=== PATIENT | female | born 1970 | race Caucasian/White ===

== ENCOUNTER 2018-02-08 01:52 | Inpatient (IN) | payer MEDICARE, MEDICAID ==
[~2018-02-08] VITALS: Ht 172.7 cm; Wt 128.2 kg
[~2018-02-08 01:52] MED LIST: ASPIRIN325 MG PO; BACTRIM DS TABL1 TAB PO; CARAFATE1 G PO; HYDROCODON-ACE1 EAC7 PO; KLONOPIN1 MG PO; NORCO 10/325 TA1 TA1 PO; PROTONIX40 MG PO; SOMA350 MG PO
[2018-02-08] MEDS ORDERED: MORPHINE SULFAT15 M4 PO (01:56)
[2018-02-08] MEDS ORDERED: ZANAFLEX2 M1 PO (01:57)
[2018-02-08] MEDS ORDERED: SENNA LAXATIVE8.6 MG PO (01:57)
[2018-02-08] MEDS ORDERED: MELATONIN 3 MG1 TAB PO (01:57)
[2018-02-08] MEDS ORDERED: PHENERGAN25 M1 PO (01:57)
[2018-02-08] MEDS ORDERED: K-DUR20 MEQ PO (01:58)
[2018-02-08] MEDS ORDERED: OXYBUTYNIN CHLOR5 MG PO (01:58)
[2018-02-08] MEDS ORDERED: FUROSEMIDE40 MG PO (01:59)
[2018-02-08] MEDS ORDERED: AMBIEN5 MG PO (01:59)
[2018-02-08] MEDS ORDERED: KLONOPIN1 MG PO (01:59)
[2018-02-08] MEDS ORDERED: LEXAPRO20 MG PO (02:00)
[2018-02-08 03:16] LABS: HEMATOCRIT 40.5 % (36.0-48.0); HEMOGLOBIN 12.5 g/dL (12-16); MCH 26.3 pg (26.0-34.0); MCHC 30.9 g/dL (31.0-37.0); MCV 85.3 fL (80.0-100.0); MEAN PLATELET VOLUME 9.8 fL (7.4-10.4); PLATELET COUNT 526 10x3/uL (130-400); RBC 4.75 10x6/uL (4.00-5.40); WBC 24.9 10x3/uL (4.8-10.8)
[2018-02-08 03:21] LABS: CALC OSMOLALITY 281 mosm/kg (275-300); CALCIUM 9.2 mg/dL (8.5-10.1); CARBON DIOXIDE 31.6 mmol/L (21.0-32.0); CHLORIDE - SERUM 99 mmol/L (98-107); CREATININE - SERUM 0.6 mg/dL (0.6-1.3); GLUCOSE 114 mg/dL (74-106); POTASSIUM - SERUM 3.7 mmol/L (3.5-5.1); SODIUM 140 mmol/L (136-145); UREA NITROGEN 18 mg/dL (7-18); eGFR NON AFRICAN AMERICAN > 90 mL/min (90-120)
[2018-02-08 03:33] LABS: BASOPHILS 1 % (0-2); LYMPHOCYTES 10 % (15-50); MONOCYTES 4 % (2-11); NEUTROPHILS 84 % (40-80); PLATELET ESTIMATE INCREASED
--- NOTE | 2018-02-08 05:18 | NUR ---
BLOOD CULTURES X2 COLLECTED BY LAB
--- NOTE | 2018-02-08 05:42 | NUR ---
PT TRANSPORTED TO ROOM WITH NS @ 100ML/HR AND ZOSYN 4.5GM RUNNING
[2018-02-08 07:53] VITALS: BP 92/52; BMI 33.8
--- NOTE | 2018-02-08 08:00 | NUR ---
ASSESSMENT PER FLOW SHEET. PT IS WITHOUT DISTRESS.CALL TO [facility] WITH WOUNDCARE TO LOOK AT PT BUTTOCKS,AND HEELS,SEE NOTES.SHE IS WITHOUT NEEDS AT PRESENT. CALL LIGHT PLACED BY LEFT ARM. DOOR OPEN
[2018-02-08 08:45] VITALS: BP 121/64
--- NOTE | 2018-02-08 09:39 | NUR ---
Wound care consult: Pt admitted from [facility] this morning. She has a stage 3 pressure injury on sacrum measuring 0.7cm x 0.7cm x 1.2cm. There is noted blanchable redness and excoriation surrounding wound, gluteal cleft and buttocks. She has a f/c and is incontinent of bowels. She arrived wearing an adult brief. Left hip has a nonblanchable red area (2cm x 5cm) (stage 1 pressure injury). Left lateral ankle has blanchable redness. Right heel is scarred possibly from an old pressure ulcer. Recommendations: -Air overlay mattress and a turn every 2 hours schedule -Calmoseptine cream applied to excoriated areas -Daily dressing changes to sacral pressure injury using Maxorb AG -No adult briefs/diapers Wound care will continue monitoring. -Heels/ankles bridged
[2018-02-08 12:45] VITALS: BP 93/46
[2018-02-08 16:37] VITALS: BP 92/41
[2018-02-08 17:20] LABS: HEMATOCRIT 38.3 % (36.0-48.0); HEMOGLOBIN 11.9 g/dL (12-16); MCH 26.9 pg (26.0-34.0); MCHC 31.1 g/dL (31.0-37.0); MCV 86.5 fL (80.0-100.0); MEAN PLATELET VOLUME 9.8 fL (7.4-10.4); PLATELET COUNT 498 10x3/uL (130-400); RBC 4.43 10x6/uL (4.00-5.40); WBC 26.9 10x3/uL (4.8-10.8)
[2018-02-08 17:27] LABS: APTT 25.9 SECONDS (22.8-39.4); INR 1.13 (0.85-1.17)
[2018-02-08 17:48] LABS: LYMPHOCYTES 8 % (15-50); MONOCYTES 1 % (2-11); NEUTROPHILS 87 % (40-80); PLATELET ESTIMATE NORMAL
[2018-02-08 20:00] VITALS: BP 116/52
--- NOTE | 2018-02-08 20:00 | NUR ---
ASSESSMENT PER FLOWSHEET. IV PATENT LEFT CHEST OF NS AT 100CC'S/HR. TRACH IN PLACE WITH TRACH COLLAR AT 8L/M. DOWNS TO BEDSIDE DRAINAGE WITH SUSAN URINE. LEFT LEG FLACCID. RT LEG STIFF. MOVES LEFT ARM RT ARM CONTRACTED AND STIFF. DIME SIZE PRESSURE SORE TO SACRAL AREA. PLACED ON CONT. PULSE OX SHOWS 90-92%.
--- NOTE | 2018-02-08 21:00 | NUR ---
MEDS GIVEN PER MAR.
--- NOTE | 2018-02-08 23:00 | NUR ---
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 TRACH CLEANED BY RT TECH.
--- NOTE | 2018-02-09 02:00 | NUR ---
O2 SAT STAYS AT 89-91% NO DISTRESS NOTED.
--- NOTE | 2018-02-09 03:58 | NUR ---
EYES CLOSED RESPIRATIONS WITH EASE AND UNLABORED. NPO FOR BRONCH IN AM.
[2018-02-09 04:00] VITALS: BP 147/55
[2018-02-09 08:15] LABS: ALBUMIN 2.3 g/dL (3.4-5.0); ALKALINE PHOSPHATASE 108 U/L (46-116); ALT (SGPT) 22 U/L (10-68); BILIRUBIN - TOTAL 0.37 mg/dL (0.2-1.3); CALC OSMOLALITY 276 mosm/kg (275-300); CALCIUM 8.1 mg/dL (8.5-10.1); CARBON DIOXIDE 21.7 mmol/L (21.0-32.0); CHLORIDE - SERUM 104 mmol/L (98-107); CREATININE - SERUM 0.5 mg/dL (0.6-1.3); GLUCOSE 107 mg/dL (74-106); PROTEIN - SERUM 7.5 g/dL (6.4-8.2); SODIUM 139 mmol/L (136-145); UREA NITROGEN 11 mg/dL (7-18); eGFR NON AFRICAN AMERICAN > 90 mL/min (90-120)
[2018-02-09 08:16] LABS: POTASSIUM - SERUM 4.3 mmol/L (3.5-5.1)
[2018-02-09 08:45] VITALS: BP 93/55
[2018-02-09 08:46] LABS: HEMATOCRIT 38.1 % (36.0-48.0); HEMOGLOBIN 11.9 g/dL (12-16); MCH 26.9 pg (26.0-34.0); MCHC 31.2 g/dL (31.0-37.0); MCV 86.2 fL (80.0-100.0); MEAN PLATELET VOLUME 10.1 fL (7.4-10.4); PLATELET COUNT 330 10x3/uL (130-400); RBC 4.42 10x6/uL (4.00-5.40); RDW 18.5 % (11.5-14.5); WBC 21.3 10x3/uL (4.8-10.8)
[2018-02-09] MEDS ORDERED: ACETAMINOPHEN325 MG PO (09:27)
[2018-02-09] MEDS ORDERED: ASPERCREME 5 OZ5 OZ TOPICAL (09:29)
[2018-02-09] MEDS ORDERED: BENADRYL25 MG PO (09:31)
[2018-02-09] MEDS ORDERED: MORPHINE IMMEDI15 MG PO (09:33)
[2018-02-09] MEDS ORDERED: MIRALAX17 GM PO (09:35)
[2018-02-09] MEDS ORDERED: MELATONIN 3 MG1 TAB PO (09:35)
[2018-02-09] MEDS ORDERED: OXYBUTYNIN CHLOR5 MG PO (09:38)
[2018-02-09] MEDS ORDERED: K-DUR20 MEQ PO (09:41)
[2018-02-09] MEDS ORDERED: CORTEF10 MG PO (09:43)
[2018-02-09] MEDS ORDERED: LYRICA150 MG PO (09:44)
[2018-02-09 09:54] LABS: EOSINOPHILS 4 % (0-7); LYMPHOCYTES 10 % (15-50); MONOCYTES 6 % (2-11); NEUTROPHILS 79 % (40-80); PLATELET ESTIMATE NORMAL
--- NOTE | 2018-02-09 11:22 | MORECARE ---
CASE MANAGEMENT DISCHARGE SUMMARY PATIENT: CATERINA STEWART UNIT: [id number] ADM DATE: 02/08/18 AGE: 47 : 66 SEX: F ROOM/BED: D.2218 AUTHOR: LEONORA BUSH PHYSICIAN: REFERRING PHYSICIAN: PERCY DONOVAN MD DATE OF SERVICE: 02/09/18 Discharge Plan Patient Name: CATERINA STEWART Facility: [facility]:[place] : 1970 Planned Disposition: Hospice Medical Facility Anticipated Discharge Date: Discharge Date: Expected LOS: Initial Reviewer: [email or web address] Initial Review Date: 02/09/2018 Generated: 02/09/18 12:21 pm DCPIA - Discharge Planning Initial Assessment Updated by [email or web address]: Kathia Wright on 02/09/18 11:19 am * Is the patient Alert and Oriented? Yes * PCP VENUS * Pharm[facility] * Preadmission Environment Hospice * Facility Name [facility] * ADLs Total Dependent * Equipment Hospital Bed Oxygen Trach Care Supplies Wheelchair * List name and contact numbers for known caregivers / representatives who currently or will assist patient after discharge: IBAN QUIROZ, * Community resources currently utilized Other * Please name any agencies selected above. [facility] * Additional services required to return to the preadmission environment? No * Can the patient safely return to the preadmission environment? Yes * Has this patient been hospitalized within the prior 30 days at any hospital? No Patient Name: CATERINA STEWART Page [phone] at 1122 All edits/amendments must be made on the electronic document DICTATION DATE: 02/09/18 1121 LIABILITY ANALYST: KOBE 02/09/18 1121 RPT#: [id number] DC DATE: STATUS: ADM IN [facility] [address] [place] [address] END OF REPORT
--- NOTE | 2018-02-09 11:30 | MORECARE ---
CASE MANAGEMENT DISCHARGE SUMMARY PATIENT: CATERINA STEWART UNIT: [id number] ADM DATE: 02/08/18 AGE: 47 : 66 SEX: F ROOM/BED: D.6509 AUTHOR: LEONORA BUSH PHYSICIAN: REFERRING PHYSICIAN: PERCY DONOVAN MD DATE OF SERVICE: 02/09/18 Discharge Plan Patient Name: CATERINA STEWART Facility: [facility]:[place] : 1970 Planned Disposition: Hospice Medical Facility Anticipated Discharge Date: Discharge Date: Expected LOS: Initial Reviewer: [email or web address] Initial Review Date: 02/09/2018 Generated: 02/09/18 12:29 pm Comments DCP- Discharge Planning Updated by [email or web address]: Kathia Wright on 02/09/18 10:[address] Patient Name: CATERINA STEWART Admission Status: ER Accout number: [id number] Admission Date: 02-08-2018 : 1970 Admission Diagnosis: Attending: PERCY DONOVAN Current LOS: 1 Anticipated DC Date: Planned Disposition: Hospice Medical Facility Primary Insurance: [facility] MEDICARE HMO or PPO Discharge Planning Comments: CM MET WITH PATIENT ABOUT DC PLANNING/NEEDS. STATES SHE IS CURRENTLY AT THE [facility] ON HOSPICE. CM WILL CALL AND VERIFY INFORMATION. PATIENT IS HERE FOR PNEUMONIA. PATIENT STATES NO NEEDS AT TIME OF DC AND THAT HER PLAN IS TO GO BACK TO THE [facility] BY AMBULANCE. CM WILL FOLLOW AND ASSIST NEEDED WITH DC PLANNING/NEEDS. [employer] Bpm Consultant: Kathia Wright DCPIA - Discharge Planning Initial Assessment Updated by [email or web address]: Kathia Wright on 02/09/18 11:19 am * Is the patient Alert and Oriented? Yes * PCP VENUS * Pharmacy THROUGH THE [facility] * Preadmission Environment Hospice * Facility Name [facility] * ADLs Total Dependent * Equipment Hospital Bed Oxygen Trach Care Supplies Wheelchair * List name and contact numbers for known caregivers / representatives who currently or will assist patient after discharge: RICHIE, DAUGHTER, * Community resources currently utilized Other * Please name any agencies selected above. [facility] * Additional services required to return to the preadmission environment? No * Can the patient safely return to the preadmission environment? Yes * Has this patient been hospitalized within the prior 30 days at any hospital? No Last DP export: 02/09/18 10:21 am Patient Name: CATERINA STEWART Page [phone] at 1130 All edits/amendments must be made on the electronic document DICTATION DATE: 02/09/181128 HOUSE SERVANT: KOBE 02/09/18 112 RPT#: [id number] DC DATE: STATUS: ADM IN [facility] [address] [place] [address] END OF REPORT
[2018-02-09 12:45] VITALS: BP 92/44
--- NOTE | 2018-02-09 14:34 | MORECARE ---
CASE MANAGEMENT DISCHARGE SUMMARY PATIENT: CATERINA STEWART UNIT: [id number] ADM DATE: 02/08/18 AGE: 47 : 66 SEX: F ROOM/BED: D.2218 AUTHOR: RACHELLEDOC PHYSICIAN: REFERRING PHYSICIAN: PERCY DONOVAN MD DATE OF SERVICE: 02/09/18 Discharge Plan Patient Name: CATERINA STEWART Facility: [facility]:[place] : 1970 Planned Disposition: Hospice Medical Facility Anticipated Discharge Date: Discharge Date: Expected LOS: Initial Reviewer: [email or web address] Initial Review Date: 02/09/2018 Generated: 02/09/18 3:34 pm Comments DCP- Discharge Planning Updated by [email or web address]: Kathia Wright on 02/09/18 1:[address] Patient Name: CATERINA STEWART Admission Status: ER Accout number: [id number] Admission Date: 02-08-2018 : 1970 Admission Diagnosis: Attending: PERCY DONOVAN Current LOS: 1 Anticipated DC Date: Planned Disposition: Hospice Medical Facility Primary Insurance: [facility] MEDICARE HMO or PPO Discharge Planning Comments: CM MET WITH PATIENT ABOUT DC PLANNING/NEEDS. STATES SHE IS CURRENTLY AT THE [facility] ON HOSPICE. CM WILL CALL AND VERIFY INFORMATION. PATIENT IS HERE FOR PNEUMONIA. PATIENT STATES NO NEEDS AT TIME OF DC AND THAT HER PLAN IS TO GO BACK TO THE [facility] BY AMBULANCE. CM WILL FOLLOW AND ASSIST NEEDED WITH DC PLANNING/NEEDS. Porcelain Enamel Repairer: Kathia Wright Appended by Kathia Wright on 02/09/2018 14:26 VETERINARY SCIENCE TEACHER: SPOKE WITH GÉNESIS AT [facility] AT THE [facility] AND HE STATED THEY WILL PICK HER BACK UP WHEN DISCHARGED. CM OR NURSE TO LET THEM KNOW WHEN PATIENT IS DC'D. CALL GÉNESIS AT [phone] WHEN PATIENT IS BEING DC'D FROM HOSPITAL. DCPIA - Discharge Planning Initial Assessment Updated by [email or web address]: Kathia Wright on 02/09/18 11:19 am * Is the patient Alert and Oriented? Yes * PCP VENUS * Pharmacy THROUGH THE [facility] * Preadmission Environment Hospice * Facility Name [facility] * ADLs Total Dependent * Equipment Hospital Bed Oxygen Trach Care Supplies Wheelchair * List name and contact numbers for known caregivers / representatives who currently or will assist patient after discharge: RICHIE, DAUGHTER, * Community resources currently utilized Other * Please name any agencies selected above. [facility] * Additional services required to return to the preadmission environment? No * Can the patient safely return to the preadmission environment? Yes * Has this patient been hospitalized within the prior 30 days at any hospital? No Last DP export: 02/09/18 10:30 am Patient Name: CATERINA STEWART Page [phone] at 1434 All edits/amendments must be made on the electronic document DICTATION DATE: 02/09/181433 CARTON LINER: KOBE 02/09/181433 RPT#: [id number] DC DATE: STATUS: ADM IN [facility] [address] [place] [address] END OF REPORT
[2018-02-09 16:48] VITALS: BP 104/43
--- NOTE | 2018-02-09 18:55 | NUR ---
PATIENT IV REMOVED DUE TO REDNESS AND PAIN. PATIENT TRACH SUCTIONED AT THIS TIME PER PATIENT REQUEST. ATE SMALL AMOUNT OF DINNER. STATED NOT VERY HUNGRY. LAYING ON SIDE WITH DOWNS INTACT. CALL LIGHT WITHIN REACH.
[2018-02-09 20:28] VITALS: BP 96/47
[2018-02-10 00:46] VITALS: BP 108/69
--- NOTE | 2018-02-10 03:25 | NUR ---
PT LYING IN BED, NO SIGNS OF DISTRESS. DENIES NEEDS. WILL CONTINUE TO MONITOR
[2018-02-10 05:24] VITALS: BP 114/84
[2018-02-10 07:12] LABS: BASOPHILS 0.3 % (0-2); EOSINOPHILS 4.3 % (0-7); HEMATOCRIT 35.9 % (36.0-48.0); HEMOGLOBIN 10.7 g/dL (12-16); IMMATURE GRANULOCYTES 0.3 % (0-5); LYMPHOCYTES 15.9 % (15-50); MCH 26.4 pg (26.0-34.0); MCHC 29.8 g/dL (31.0-37.0); MEAN PLATELET VOLUME 9.5 fL (7.4-10.4); MONOCYTES 7.7 % (2-11); NEUTROPHILS 71.5 % (40-80); RBC 4.06 10x6/uL (4.00-5.40); RDW 18.5 % (11.5-14.5); WBC 17.5 10x3/uL (4.8-10.8)
[2018-02-10 07:16] LABS: MCV 88.4 fL (80.0-100.0)
[2018-02-10 07:17] LABS: PLATELET COUNT 478 10x3/uL (130-400)
[2018-02-10 07:26] LABS: CALCIUM 8.2 mg/dL (8.5-10.1); CHLORIDE - SERUM 104 mmol/L (98-107); CREATININE - SERUM 0.5 mg/dL (0.6-1.3); GLUCOSE 110 mg/dL (74-106); SODIUM 141 mmol/L (136-145); eGFR NON AFRICAN AMERICAN > 90 mL/min (90-120)
[2018-02-10 07:27] LABS: CALC OSMOLALITY 279 mosm/kg (275-300); CARBON DIOXIDE 27.3 mmol/L (21.0-32.0); POTASSIUM - SERUM 3.2 mmol/L (3.5-5.1); UREA NITROGEN 6 mg/dL (7-18)
[2018-02-10 09:53] VITALS: BP 117/48
--- NOTE | 2018-02-10 12:40 | NUR ---
ALERT AND ORINETED WI EXPRESSIVE APHASIA RELATED TO TRACH. UNIQUE COLLAR 60%. DIMINISHED BSX4 ANTERIOR. CAP REFILL <3 SEC. CONTINUIOUS PULSE OX 95%.dILAUDID 1MG GIVEN IV FOR PAIN LEFT ARM AND EFFECTIVE. FIRST PLACE MATTRESS APPLIED TO BED AND REPOSITIONED FOR COMFORT. DOWNS CATH PATENT WITH CLEAR SUSAN URINE NOTED.DROPPLET PRECAUTIONS FOR MRSA SPUTUM. HEMIPARALYSIS TO RT. SIDE WITH PLANTER FLEXION WITH EDEMA 2+ BILATERAL. ENCOURAGED TO USE CALL LIGHT FOR ASSIST.
[2018-02-10 16:00] VITALS: BP 110/58
--- NOTE | 2018-02-10 19:15 | NUR ---
RECEIVED CARE FROM DAY NURSE. ROUNDED WITH DAY NURSE AND READJUSTED PT IN BED. REPORTS NO OTHER NEEDS AT THIS TIME. CALL LIGHT AT SIDE. IV INFUSING TO LEFT FA PER ORDER.
[2018-02-10 20:42] VITALS: BP 121/57
[2018-02-10 21:06] LABS: AFB SPECIMEN PROCESSING Concentration (())
[2018-02-11] VITALS (15 sets, daily range): BP systolic 94–119; BP diastolic 45–58
--- NOTE | 2018-02-11 04:40 | NUR ---
RESTING QUITELY RESP UNLABORED IV INFUSING WITHOUT DIFFICULTY NO APPARENT DISTRESS
--- NOTE | 2018-02-11 07:30 | NUR ---
PT RESTING IN BED WITH EYES OPEN. O2 VIA HIGH FLOW NC TO TRACH. DOWNS DRAINING FREELY WITH COLLECTION BAG OFF OF THE FLOOR. PT DOES NOT HAVE USE OF RIGHT UPPER EXTREMITY AND BILATERAL LOWER EXTREMITIES. PT IS ON A SPECIALTY BED, BUT HAS REFUSED REPOSITIONING. BED IS IN LOWEST POSITION. CALL LIGHT AND BEDSIDE TABLE ARE WITHIN REACH. PT REPORTS PAIN. WILL ADDRESS. SEE EMAR. PT DENIES FURTHER NEEDS AT THIS TIME.
[2018-02-11 08:25] LABS: BASOPHILS 0.4 % (0-2); EOSINOPHILS 5.1 % (0-7); HEMATOCRIT 33.7 % (36.0-48.0); IMMATURE GRANULOCYTES 0.4 % (0-5); LYMPHOCYTES 14.3 % (15-50); MCH 26.3 pg (26.0-34.0); MCHC 29.7 g/dL (31.0-37.0); MCV 88.7 fL (80.0-100.0); MEAN PLATELET VOLUME 9.6 fL (7.4-10.4); MONOCYTES 8.5 % (2-11); NEUTROPHILS 71.3 % (40-80); PLATELET COUNT 527 10x3/uL (130-400); RDW 18.6 % (11.5-14.5)
[2018-02-11 08:43] LABS: CALC OSMOLALITY 278 mosm/kg (275-300); CALCIUM 8.1 mg/dL (8.5-10.1); CARBON DIOXIDE 26.9 mmol/L (21.0-32.0); CHLORIDE - SERUM 106 mmol/L (98-107); CREATININE - SERUM 0.5 mg/dL (0.6-1.3); GLUCOSE 117 mg/dL (74-106); POTASSIUM - SERUM 3.6 mmol/L (3.5-5.1); SODIUM 141 mmol/L (136-145); eGFR NON AFRICAN AMERICAN > 90 mL/min (90-120)
[2018-02-11 08:44] LABS: UREA NITROGEN 4 mg/dL (7-18)
--- NOTE | 2018-02-11 11:00 | NUR ---
DRESSING CHANGED TO COCCYX PER ORDER. PT DENIES FURTHER NEEDS. BED IS IN LOWEST POSITION. CALL LIGHT AND BEDSIDE TABLE ARE WITHIN REACH.
--- NOTE | 2018-02-11 11:23 | NUR ---
PT OFF FLOOR VIA BED FOR TRANSFER TO ICU.
--- NOTE | 2018-02-11 11:30 | NUR ---
REC'D PT. INTO ROOM 2303 AND HOOKED UP TO CM.
--- NOTE | 2018-02-11 11:30 | NUR ---
HOOKED TO VENT ON CPAP. PEEP=7, PS 20, 100% FIO2.
--- NOTE | 2018-02-11 12:44 | NUR ---
KITCHEN CALLED FOR LUNCH TRAY.
--- NOTE | 2018-02-11 13:15 | NUR ---
LUNCH TRAY SERVED,.
--- NOTE | 2018-02-11 14:58 | NUR ---
C/O ITCHING. CHANCE TURNER
[2018-02-11 16:07] LABS: IMMUNOGLOBULIN A 498 mg/dL (87-352); IMMUNOGLOBULIN G 1589 mg/dL (700-1600)
--- NOTE | 2018-02-11 17:37 | NUR ---
DINNER TRAY SERVED
--- NOTE | 2018-02-11 19:35 | NUR ---
PT RECEIVED WITH EYES OPEN. COMPLAINS OF PAIN WITH PRN DILAUDID GIVEN PER MAR. ASSESSMENT COMPLETED, SEE FLOW SHEET. NO OTHER CONCERNS NOTED. WILL CONTINUE TO OBSERVE.
--- NOTE | 2018-02-11 20:45 | NUR ---
PT RECEIVE MEDICATIONS PER MAR, TOLERATED WELL. NO CONCERNS NOTED. WILL CONTINUE TO OBSERVE.
--- NOTE | 2018-02-11 23:36 | NUR ---
PT COMPLAINED OF BACK PAIN AND RECEIVE PRN MORPHINE PER APR. IV VANCOMYCIN STARTED AND CAUSED PAIN TO IV SITE RATE AT 75ML/HR AT THIS TIME AND PT TOLERATING WELL. PT SCHEDULED FOR CVL PLACEMENT TOMORROW. WILL CONTINUE TO OBSERVE.
[2018-02-12] VITALS (24 sets, daily range): BP systolic 98–117; BP diastolic 19–67; Ht 172.7 cm; Wt 128.2 kg
--- NOTE | 2018-02-12 01:32 | NUR ---
PT WITH EYES CLOSED AND CHEST RISING. NO S/S OF DISTRESS. IV ABX AT 75ML/HR DUE TO DISCOMFORT IF AT FASTER RATE. WILL CONTINUE TO OBSERVE.
--- NOTE | 2018-02-12 03:45 | NUR ---
PT WITH EYES CLOSED AND CHEST RISING AT THIS TIME. REASSESSMENT COMPLETED, SEE FLOW SHEET. WILL CONTINUE TO OBSERVE.
[2018-02-12 04:18] LABS: BASOPHILS 0.6 % (0-2); EOSINOPHILS 5.4 % (0-7); HEMATOCRIT 33.2 % (36.0-48.0); IMMATURE GRANULOCYTES 0.3 % (0-5); MCH 26.3 pg (26.0-34.0); MCHC 30.1 g/dL (31.0-37.0); MCV 87.4 fL (80.0-100.0); MEAN PLATELET VOLUME 9.4 fL (7.4-10.4); MONOCYTES 9.7 % (2-11); PLATELET COUNT 487 10x3/uL (130-400); RDW 18.1 % (11.5-14.5); WBC 15.5 10x3/uL (4.8-10.8)
[2018-02-12 04:39] LABS: % SATURATION 6 % (15-55); IRON 11 ug/dl (35-150); TOTAL IRON BIND CAPACITY 180 ug/dl (260-445); UNSAT IRON BIND CAPACITY 169 ug/dl (150-375)
[2018-02-12 05:09] LABS: CALC OSMOLALITY 278 mosm/kg (275-300); CARBON DIOXIDE 26.1 mmol/L (21.0-32.0); CHLORIDE - SERUM 105 mmol/L (98-107); CREATININE - SERUM 0.5 mg/dL (0.6-1.3); FERRITIN 101 ng/mL (3-244); GLUCOSE 121 mg/dL (74-106); POTASSIUM - SERUM 3.3 mmol/L (3.5-5.1); SODIUM 141 mmol/L (136-145); UREA NITROGEN 5 mg/dL (7-18); eGFR NON AFRICAN AMERICAN > 90 mL/min (90-120)
--- NOTE | 2018-02-12 05:15 | NUR ---
PT RECEIVED PRN MORPHINE PER MAR WITH PROTONIX, TOLERATED WELL. WILL CONTINUE TO OBSERVE.
--- NOTE | 2018-02-12 07:15 | NUR ---
REPORT RECIEVED. ASSESSMENT COMPLETE PER FLOW SHEET. VSS. ORAL ENDOTRACH CARE ADM. WILL CONTINUE TO MONITOR
--- NOTE | 2018-02-12 08:20 | NUR ---
PT AIR BRUSH ARTIST LIGHT REQUEST ORAL FLUIDS. UNABLE TO ADM WITH VENT ON. EXPLAINED. STATES OKAY.
--- NOTE | 2018-02-12 09:06 | NUR ---
PT CLEANING LABORER LIGHT. REQUESTS ORAL FLUIDS. REEDUCATED ON UNABLE TO TAKE ORAL FLUIDS OR FOOD WITH VENT ON AT THIS TIME. WILL ASK DR NEWMAN WHEN HE COMES IN. FLUID BOLUS ADM THROUGH PEG. STATES OKAY.
--- NOTE | 2018-02-12 09:40 | NUR ---
DAUGHTER AND [employer] AT BEDSIDE. UPDATE GIVEN
--- NOTE | 2018-02-12 10:15 | NUR ---
MAKAYLA ALBRIGHT APN AT BEDSIDE. ATTEMPT TO CALL [facility] WITH [facility] REGAURDING CONSENTS. AWAITING CALL BACK.
[2018-02-12 11:14] LABS: FUNGUS STAIN Final report (())
--- NOTE | 2018-02-12 11:20 | NUR ---
REASSESSMENT COMPLETE PER FLOW SHEET. VSS. NO NEW CHANGES WILL CONTINUE TO MONITOR
--- NOTE | 2018-02-12 13:40 | NUR ---
ORAL ENODTRACH CARE ADM. PT ANIXOUS REPOSITIONED UP IN BED FOR COMOFORT WILL CONTINUE TO MONITOR
--- NOTE | 2018-02-12 15:30 | NUR ---
REASSESSMENT COMPLET EPER FLOW SHEET. VSS. NO NEW CHANGES WILL CONTINUE TO MONITOR
--- NOTE | 2018-02-12 19:30 | NUR ---
PT RECEIVED SEDATED ON VENT. VITAL SIGNS STABLE. NEW CVL TO LEFT IJ, DRESSING CLEAN, DRY, INTACT. DOWNS PATENT. PT AROUSES TO STIMULI AND QUICKLY RETURNS TO SLEEP. DOWNS PATENT. WILL CONTINUE TO OBSERVE.
--- NOTE | 2018-02-12 21:45 | NUR ---
PT RECEIVED MEDICATION PER MAR VIA PEG TUBE. PEG ASCULTATED FOR PLACEMENT PRIOR TO ADMINISTRATION. TUBE FLUSHED FREELY. COLLIN VALVE REPLACED FOR TUBE FEEDING CONNECTION. WILL CONTINUE TO OBSERVE.
--- NOTE | 2018-02-12 23:43 | NUR ---
PT CONTINUES SEDATION TUBE FEEDING HAS BEEN STARTED, AFTER ORDERS RECEIVED. REASSESSMENT COMPLETED. WILL CONTINUE TO OBSERVE.
[2018-02-13] VITALS (36 sets, daily range): BP systolic 95–119; BP diastolic 50–68
--- NOTE | 2018-02-13 01:44 | NUR ---
PT CONTIUES VENT WITH SEDATION. TOLERATING WELL. WILL CONTINUE TO OBSERVE.
--- NOTE | 2018-02-13 03:15 | NUR ---
PT GIVEN BATH WITH LINEN CHANGED. DOWNS CATHETER CHANGED USING STERILE PROCEDURE. PT TOLERATED WELL. REASSSESSMENT COMPLETE, SEE FLOW SHEET. WILL CONTINUE TO OBSERVE.
[2018-02-13 04:59] LABS: BASOPHILS 0.9 % (0-2); EOSINOPHILS 7.8 % (0-7); HEMATOCRIT 31.2 % (36.0-48.0); HEMOGLOBIN 9.4 g/dL (12-16); IMMATURE GRANULOCYTES 0.3 % (0-5); LYMPHOCYTES 22.1 % (15-50); MCH 26.1 pg (26.0-34.0); MCHC 30.1 g/dL (31.0-37.0); MCV 86.7 fL (80.0-100.0); MEAN PLATELET VOLUME 9.5 fL (7.4-10.4); MONOCYTES 9.4 % (2-11); NEUTROPHILS 59.5 % (40-80); PLATELET COUNT 501 10x3/uL (130-400); RDW 18.4 % (11.5-14.5)
[2018-02-13 05:15] LABS: WBC 9.8 10x3/uL (4.8-10.8)
[2018-02-13 05:18] LABS: CALC OSMOLALITY 285 mosm/kg (275-300); CALCIUM 7.8 mg/dL (8.5-10.1); CARBON DIOXIDE 27.7 mmol/L (21.0-32.0); CHLORIDE - SERUM 109 mmol/L (98-107); CREATININE - SERUM 0.4 mg/dL (0.6-1.3); GLUCOSE 107 mg/dL (74-106); MAGNESIUM - SERUM 1.7 mg/dL (1.8-2.4); SODIUM 145 mmol/L (136-145); UREA NITROGEN 4 mg/dL (7-18); eGFR NON AFRICAN AMERICAN > 90 mL/min (90-120)
[2018-02-13 05:27] LABS: POTASSIUM - SERUM 2.7 mmol/L (3.5-5.1)
--- NOTE | 2018-02-13 05:55 | NUR ---
PT WITH EYES CLOSED AND CHEST RISING. WILL CONTINUE TO OBSERVE.
--- NOTE | 2018-02-13 09:00 | NUR ---
AGITAtion CONTINUE ---PROPOFOL CONTINUE ORDER SEE GRAPHIC
--- NOTE | 2018-02-13 13:00 | NUR ---
OCC AGITATED CONTINUE PROPOFOL TITRATED TO SEDATION----SEE GRAPHIC
--- NOTE | 2018-02-13 17:00 | NUR ---
SEDATION CONTINUE ---OCC ANXIETY NOTED SEE GRAPHIC
--- NOTE | 2018-02-13 19:15 | NUR ---
Received patient sedated in bed on vent with eyes closed, assessment completed per flowsheet. Trach 7.0 secured. L upper arm moderate weakness noted, R upper arm contracture/stiffness. No movement noted bilateral lower, decubitus ulcer noted coccyx with dressing CDI. All pulses palpable with cap refill < 3 sec, skin cool/dry. Oral care/suctioning provided, repositioned for comfort. No further needs at this time, all VSS and will continue to monitor.
--- NOTE | 2018-02-13 21:00 | NUR ---
Patient sedated in bed on vent with eyes closed, slightly rouses to voice but returns to sleep quickly. Crushable meds given via G-tube, oral care/suctioning provided. Repositioned for comfort, no further needs and will continue to monitor.
--- NOTE | 2018-02-13 23:15 | NUR ---
Reassessment completed per flowsheet, no changes from previous assessment noted. Oral care/suctioning provided, repositioned for comfort. No further needs at this time, all VSS and will continue to monitor.
[2018-02-14] VITALS (25 sets, daily range): BP systolic 96–122; BP diastolic 44–70
--- NOTE | 2018-02-14 01:00 | NUR ---
Patient sedated in bed on vent with eyes closed, oral care/suctioning provided. Repositioned for comfort, all VSS and will continue to monitor.
--- NOTE | 2018-02-14 03:00 | NUR ---
Reassessment completed per flowsheet, no changes from previous assessment. Oral care/suctioning provided, repositioned for comfort. IV lines changed per protocol, no further needs and will continue to monitor.
[2018-02-14 04:29] LABS: BASOPHILS 0.8 % (0-2); EOSINOPHILS 9.2 % (0-7); HEMATOCRIT 31.7 % (36.0-48.0); HEMOGLOBIN 9.6 g/dL (12-16); IMMATURE GRANULOCYTES 0.3 % (0-5); LYMPHOCYTES 15.8 % (15-50); MCHC 30.3 g/dL (31.0-37.0); MCV 85.9 fL (80.0-100.0); MEAN PLATELET VOLUME 9.4 fL (7.4-10.4); MONOCYTES 7.5 % (2-11); NEUTROPHILS 66.4 % (40-80); PLATELET COUNT 528 10x3/uL (130-400); RBC 3.69 10x6/uL (4.00-5.40); RDW 18.6 % (11.5-14.5); WBC 11.5 10x3/uL (4.8-10.8)
[2018-02-14 04:36] LABS: CALCIUM 7.6 mg/dL (8.5-10.1); CARBON DIOXIDE 27.3 mmol/L (21.0-32.0); CHLORIDE - SERUM 110 mmol/L (98-107); CREATININE - SERUM 0.3 mg/dL (0.6-1.3); GLUCOSE 126 mg/dL (74-106); MAGNESIUM - SERUM 1.8 mg/dL (1.8-2.4); SODIUM 145 mmol/L (136-145); eGFR NON AFRICAN AMERICAN > 90 mL/min (90-120)
[2018-02-14 04:52] LABS: CALC OSMOLALITY 288 mosm/kg (275-300); POTASSIUM - SERUM 3.2 mmol/L (3.5-5.1); UREA NITROGEN 7 mg/dL (7-18)
--- NOTE | 2018-02-14 05:00 | NUR ---
Patient sedated in bed on vent with eyes closed, no s/s of distress at this time. K+ replaced per protocol, oral care/suctioning provided. All VSS and will continue to monitor.
--- NOTE | 2018-02-14 09:56 | NUR ---
Nutrition follow-up: Pt intubated; sedation off at this time Pulmocare infusing via PEG tube @ 30 ml/hr to increase to goal rate of 40 ml/hr; H2O flush 50 ml Q 4 hours Labs reviewed Wt: 232# To meet esimated energy needs recommend increasing TF to goal rate of 55 ml/hr. RDN following.
--- NOTE | 2018-02-14 19:10 | NUR ---
Received patient resting in bed with eyes closed on vent, assessment completed per flowsheet. Patient moves LUE weakly, no movement noted remaining extremities. Oral care/suctioning provided, repositioned for comfort. Pulmocare @ 40ml hr, TF bags changed per protocol. No further needs at this time, see flowsheet for details. All VSS and will continue to monitor.
--- NOTE | 2018-02-14 21:00 | NUR ---
Patient waving L hand to signal, generalized pain 6/10. HS medication given via G-tube with no difficulties, repositioned for comfort. No further needs, will continue to monitor.
--- NOTE | 2018-02-14 23:00 | NUR ---
Reassessment completed per flowsheet, no changes from previous assessment. Patient sleeping in bed with eyes closed on vent, oral care/suctioning provided. Repositioned for comfort, see flowsheet for details. All VSS and will continue to monitor.
[2018-02-15] VITALS (26 sets, daily range): BP systolic 101–130; BP diastolic 46–69
--- NOTE | 2018-02-15 01:00 | NUR ---
Patient sleeping in bed with eyes closed on vent, no s/s of distress at this time. Oral care/suctioning provided, repositioned for comfort. Will continue to monitor.
--- NOTE | 2018-02-15 03:00 | NUR ---
Reassessment completed per flowsheet, no changes from previous assessment. Oral care/suctioning provided, repositioned for comfort. Patient c/o generalized pain 2/10, repositioned with stated relief. No further needs at this time, see flowsheet for details. All VSS and will continue to monitor.
[2018-02-15 05:48] LABS: CALCIUM 7.4 mg/dL (8.5-10.1); CARBON DIOXIDE 25.1 mmol/L (21.0-32.0); CHLORIDE - SERUM 114 mmol/L (98-107); GLUCOSE 104 mg/dL (74-106); MAGNESIUM - SERUM 1.8 mg/dL (1.8-2.4); POTASSIUM - SERUM 3.1 mmol/L (3.5-5.1); SODIUM 151 mmol/L (136-145)
[2018-02-15 05:52] LABS: CALC OSMOLALITY 296 mosm/kg (275-300); CREATININE - SERUM 0.4 mg/dL (0.6-1.3); UREA NITROGEN 5 mg/dL (7-18); eGFR NON AFRICAN AMERICAN > 90 mL/min (90-120)
[2018-02-15 06:04] LABS: HEMATOCRIT 29.6 % (36.0-48.0); HEMOGLOBIN 9.4 g/dL (12-16); LYMPHOCYTES 19.5 % (15-50); MCHC 31.8 g/dL (31.0-37.0); MCV 85.1 fL (80.0-100.0); MEAN PLATELET VOLUME 9.1 fL (7.4-10.4); NEUTROPHILS 71.9 % (40-80); PLATELET COUNT 530 10x3/uL (130-400); RBC 3.48 10x6/uL (4.00-5.40); RDW 18.3 % (11.5-14.5); WBC 12.8 10x3/uL (4.8-10.8)
--- NOTE | 2018-02-15 19:00 | NUR ---
Received patient resting in bed on vent with eyes closed, assessment completed per flowsheet. Patient moves LUE weakly, contracture RUE with no movement bilateral lower. Oral care/suctioning provided, repositioned for comfort. C/O generalized pain 6/10, PRN medication to be provided and will reassess. No furtehr needs at this time, see flwosheet for details. All VSS and will continue to monitor.
--- NOTE | 2018-02-15 21:00 | NUR ---
Hs meds given via PEG tube without difficulty, no visitors at this time. Oral care/suctioning provided, repositioned for comfort. All VSS and will continue to monitor.
--- NOTE | 2018-02-15 23:00 | NUR ---
Reassessment completed per flowsheet, no changes from previous assessment. Trach 7.0 secured, dressing CDI. Oral care/suctioning provided, repositioned for comfort. No further needs at this time, see flowsheet for details. All VSS and will continue to monitor.
[2018-02-16] VITALS (24 sets, daily range): BP systolic 115–141; BP diastolic 54–87
--- NOTE | 2018-02-16 01:00 | NUR ---
Patient resting in bed with eyes open on vent, no s/s of distress at this time. Oral care/suctioning provided, repositioned for comfort. All VSS and will continue to monitor.
--- NOTE | 2018-02-16 03:00 | NUR ---
Reassessment completed per flowsheet, no changes from previous assessment. Oral care/suctioning provided, repositioned for comfort. L arm weak movement, no movement other extremities. Patient nods/mouths responses to questions, answers appropriately. No further needs at this time, see flowsheet for details. All VSS and will continue to monitor.
--- NOTE | 2018-02-16 05:00 | NUR ---
Sedation vacation completed, patient nods head/mouths words appropriately to questions. Oral care/suctioning performed, repositioned for comfort. No further needs at this time, all VSS and will continue to monitor.
[2018-02-16 05:12] LABS: CALC OSMOLALITY 291 mosm/kg (275-300); CALCIUM 7.6 mg/dL (8.5-10.1); CARBON DIOXIDE 25.3 mmol/L (21.0-32.0); CHLORIDE - SERUM 112 mmol/L (98-107); CREATININE - SERUM 0.3 mg/dL (0.6-1.3); GLUCOSE 114 mg/dL (74-106); POTASSIUM - SERUM 3.1 mmol/L (3.5-5.1); SODIUM 148 mmol/L (136-145); UREA NITROGEN 5 mg/dL (7-18); eGFR NON AFRICAN AMERICAN > 90 mL/min (90-120)
[2018-02-16 05:36] LABS: BASOPHILS 0.7 % (0-2); EOSINOPHILS 10.8 % (0-7); HEMATOCRIT 30.1 % (36.0-48.0); HEMOGLOBIN 9.1 g/dL (12-16); IMMATURE GRANULOCYTES 0.3 % (0-5); LYMPHOCYTES 30.1 % (15-50); MCH 25.6 pg (26.0-34.0); MCHC 30.2 g/dL (31.0-37.0); MCV 84.8 fL (80.0-100.0); MEAN PLATELET VOLUME 9.5 fL (7.4-10.4); MONOCYTES 6.9 % (2-11); NEUTROPHILS 51.2 % (40-80); PLATELET COUNT 614 10x3/uL (130-400); RBC 3.55 10x6/uL (4.00-5.40); RDW 18.5 % (11.5-14.5); WBC 9.7 10x3/uL (4.8-10.8)
--- NOTE | 2018-02-16 07:00 | NUR ---
SHIFT ASSESSMENT COMPLETED, PT CARE ASSUMED. MONITORS ON AND WORKING. VITALS STABLE. PT EASY TO AROUSE. NO SIGNS/SYMPTOMS OF PAIN OR DISCOMFORT NOTED AT THIS TIME. CALL LIGHT WITHIN REACH. WILL CONTINUE TO OBSERVE.
--- NOTE | 2018-02-16 09:00 | NUR ---
PT TURNED AND REPOSITIONED, MONITORS ON AND WORKING. VITALS STABLE, CALL LIGHT WITHIN REACH, WILL CONTINUE TO OBSERVE.
--- NOTE | 2018-02-16 10:04 | NUR ---
Nutrition follow-up: Pt intubated; on sedation vacation Pulmocare @ 40 ml/hr via PEG tube Labs reviewed Wt: 298# Recommend increasing TF to goal rate of 55 ml/hr RDN following.
--- NOTE | 2018-02-16 11:00 | NUR ---
NO CHANGES, SEE FLOW SHEET FOR FURTHER DETIALS. VITALS STABLE. WILL CONTINUE TO OBSERVE.
--- NOTE | 2018-02-16 13:00 | NUR ---
PT TURNED AND REPOSITIONED. MONITORS ON AND WORKING, VITALS STABLE, NO SIGNS/SYMPTOMS OF PAIN OR DISCOMFORT NOTED AT THIS TIME, CALL LIGHT WITHIN REACH, WILL CONTINUE TO OBSERVE.
--- NOTE | 2018-02-16 15:00 | NUR ---
PT TURNED AND REPOSITIONED FOR COMFORT. PT CLEANED FROM LARGE BM, MONITORS ON AND WORKING. VITALS STABLE, SEE FLOW SHEET FOR FURTHER DETAILS. WILL CONTINUE TO OBSERVE.
--- NOTE | 2018-02-16 17:00 | NUR ---
NO CHANGES, PT TURNED AND REPOSITIONED FOR COMFORT, NO SIGNS/SYMPTOMS OF PAIN OR DISCOMFORT NOTED AT THIS TIME, WILL CONTINUE TO OBSERVE.
--- NOTE | 2018-02-16 19:20 | NUR ---
RECEIVED PATIENT CARE, SHIFT ASSESSMENT COMPLETED - PT INTUBATED, TRACH/PEG ON DIPROVAN, AWAKE, ATTEMPTING TO COMMUNICATE WITH LEFT ARM. SEE FLOWSHEET FOR FULL ASSESSMENT
--- NOTE | 2018-02-16 21:15 | NUR ---
HS MEDICATION GIVEN VIA PEG TUBE - PT AWAKE AND RESTLESS WILL CONTINUE TO MONITOR
--- NOTE | 2018-02-16 23:18 | NUR ---
REASSESSMENT COMPLETED SEE FLOWSHEET.
[2018-02-17] VITALS (23 sets, daily range): BP systolic 83–146; BP diastolic 56–87
--- NOTE | 2018-02-17 00:31 | NUR ---
PT UNRESTRAINED, USES LEFT ARM TO REMOVE TRACH FROM VENTILATOR CIRCUIT. INCREASED OBSERVATION AND ORIENTATION EDUCATION PROVIDED AT THIS TIME.
--- NOTE | 2018-02-17 03:45 | NUR ---
COVERED PT WITH WARM BLANKET X2 FOR LOW TEMP
[2018-02-17 06:34] LABS: BASOPHILS 1.6 % (0-2); EOSINOPHILS 13.7 % (0-7); HEMOGLOBIN 9.7 g/dL (12-16); IMMATURE GRANULOCYTES 0.4 % (0-5); LYMPHOCYTES 26.9 % (15-50); MCH 25.9 pg (26.0-34.0); MCHC 30.3 g/dL (31.0-37.0); MCV 85.3 fL (80.0-100.0); MEAN PLATELET VOLUME 9.5 fL (7.4-10.4); MONOCYTES 9.5 % (2-11); NEUTROPHILS 47.9 % (40-80); PLATELET COUNT 649 10x3/uL (130-400); RBC 3.75 10x6/uL (4.00-5.40); RDW 18.9 % (11.5-14.5); WBC 8.3 10x3/uL (4.8-10.8)
--- NOTE | 2018-02-17 07:00 | NUR ---
INITIAL ASSESSMENT DONE RECEIVED PT ON DIPRIVAN MILDLY SEDATED. PT HAS OLD TRACH AND PEG. TRACH TO VENT. SIDE RAILS UP TIMES 3
[2018-02-17 07:20] LABS: CALC OSMOLALITY 292 mosm/kg (275-300); CALCIUM 8.2 mg/dL (8.5-10.1); CARBON DIOXIDE 23.4 mmol/L (21.0-32.0); CHLORIDE - SERUM 114 mmol/L (98-107); CREATININE - SERUM 0.3 mg/dL (0.6-1.3); GLUCOSE 97 mg/dL (74-106); SODIUM 149 mmol/L (136-145); UREA NITROGEN 5 mg/dL (7-18); eGFR NON AFRICAN AMERICAN > 90 mL/min (90-120)
[2018-02-17 07:22] LABS: POTASSIUM - SERUM 2.9 mmol/L (3.5-5.1)
--- NOTE | 2018-02-17 09:00 | NUR ---
DR DIOP ROUNDING
--- NOTE | 2018-02-17 10:00 | NUR ---
DR PAUL HERE STATES HE WILL DO BRONCHOSCOPY TODAY
--- NOTE | 2018-02-17 11:00 | NUR ---
REASSESSMENT MADE NO CHANGES. PT STILL ON DIPRRIVAN. DR PAUL COMING TO DO BRONCHOSCOPY.
--- NOTE | 2018-02-17 11:00 | NUR ---
REASSESSMENT COMPLETED REPOSTIONED CONTINUES TO BE SEDATED WITH DIPRIVAN. PTS SCHEDULED MEDICATIONS HAVE SEDATIVE AFFECT WELL
--- NOTE | 2018-02-17 13:40 | NUR ---
DR PAUL HERE WITH [facility] BRONCHOSCOPY PERFORMED SEE PROCEDURE NOTES. TUBE FEEDING ON HOLD FOR PROCEDURE
--- NOTE | 2018-02-17 14:00 | NUR ---
X RAY HERE TO DO POST BRONCHOSCOPY CHEST X RAY
--- NOTE | 2018-02-17 15:00 | NUR ---
PER DR PAUL ORDER D/C NS AND START FREE WATER FLUSH WITH TUBE FEEDINGS 100 CC Q2 HOURS DUE TO HIGH NA DR PAUL AWARE PT BRADYCARDIC B/P STABLE WITH
--- NOTE | 2018-02-17 16:20 | NUR ---
PTS NIECE AND SISTER HERE FOR VISITATION UPDATE GIVEN
--- NOTE | 2018-02-17 17:00 | NUR ---
PT STILL ON DIPRIVAN WAVING LEFT HAND AND PULLING AT IV PUMP. ORAL CARE DONE SUCTIONED PT LARGE AMOUNT THICK CLEAR SECRETIONS. REPOSITIONED WITH PILLOWS
--- NOTE | 2018-02-17 19:10 | NUR ---
Received patient resting in bed on vent with eyes closed, assessment completed per flowsheet. Patient nods appropriately to questions, LUE weak movement with no movement remaining extremities. Oral care suctioning provided, repositioned for comfort. C/O generalized pain 07/16, scheduled medication to be given. No further needs at this time, see flowsheet for details. All VSS and will continue to monitor.
--- NOTE | 2018-02-17 21:00 | NUR ---
Patient resting in bed with eyes closed on vent, HS meds given via Peg Tube with no difficulties. Oral care/suctioning provided, repositioned for comfort. All VSS and will continue to monitor.
--- NOTE | 2018-02-17 23:10 | NUR ---
Reassessment completed per flowsheet, no changes from previous assessment. Oral care/suctioning provided, repositioned for comfort. No further needs at this time, see flowsheet for details. All VSS and will continue to monitor.
[2018-02-18] VITALS (37 sets, daily range): BP systolic 15–141; BP diastolic 49–87
--- NOTE | 2018-02-18 01:00 | NUR ---
Patient resting in bed on vent with eyes closed, no s/s of distress at this time. Oral care/suctioning provided, repositioned for comfort. All VSS and will continue to monitor.
[2018-02-18 04:46] LABS: BASOPHILS 1.3 % (0-2); EOSINOPHILS 10.9 % (0-7); HEMATOCRIT 32.9 % (36.0-48.0); HEMOGLOBIN 10.1 g/dL (12-16); IMMATURE GRANULOCYTES 0.4 % (0-5); LYMPHOCYTES 26.4 % (15-50); MCH 26.2 pg (26.0-34.0); MCHC 30.7 g/dL (31.0-37.0); MCV 85.2 fL (80.0-100.0); MEAN PLATELET VOLUME 9.4 fL (7.4-10.4); MONOCYTES 5.9 % (2-11); NEUTROPHILS 55.1 % (40-80); PLATELET COUNT 693 10x3/uL (130-400); RBC 3.86 10x6/uL (4.00-5.40); RDW 18.9 % (11.5-14.5)
--- NOTE | 2018-02-18 05:00 | NUR ---
Patient resting in bed with eyes closed, no s/s of distress at this time. Sotomayor care provided, repositioned for comfort. No further needs at this time, all VSS and will continue to monitor.
[2018-02-18 05:02] LABS: WBC 10.4 10x3/uL (4.8-10.8)
[2018-02-18 05:12] LABS: CALC OSMOLALITY 291 mosm/kg (275-300); CARBON DIOXIDE 25.7 mmol/L (21.0-32.0); CHLORIDE - SERUM 114 mmol/L (98-107); CREATININE - SERUM 0.3 mg/dL (0.6-1.3); GLUCOSE 102 mg/dL (74-106); MAGNESIUM - SERUM 1.9 mg/dL (1.8-2.4); POTASSIUM - SERUM 3.5 mmol/L (3.5-5.1); SODIUM 148 mmol/L (136-145); UREA NITROGEN 6 mg/dL (7-18); eGFR NON AFRICAN AMERICAN > 90 mL/min (90-120)
--- NOTE | 2018-02-18 07:00 | NUR ---
ASSESSMENT MADE PT AWAKE WITH DIPRIVAN SEDATION STILL AWAKE AND RESTLESS PULLING ON EKG LEADS AND HAS THE CORD IN HER MOUTH. PT ONLY ABLE TO MOVE LEFT HAND PARALYSIS BLE AND RIGHT UPPER EXTREMITY. RIGHT UPPER EXTREMITY CONTRACTURE PITTING EDEMA TO EXTREMITIES. PT MORBIDLY OBESE PEG TUBE WITHH PULMOCARE PT TOLERATING FEEDS, SB-SR ON GRAPHICS COORDINATOR.DOWNS TO BSD WITH CLEAR YELLOW URINE. TRACH SIZE 6 TO VENT WITH SIMV 12. TV 600 PS 10 PEEP 7
--- NOTE | 2018-02-18 09:45 | NUR ---
DR MCKEON/HANNAH ROUNDING NEW ORDERS NOTED
--- NOTE | 2018-02-18 11:00 | NUR ---
REASSESSMENT MADE PT RESTING QUIETLY WITH EYES CLOSED NO CHANGES IN VENT SETTINGS AT THIS TIME. PT HEART RATE BRADYCARDIA AFTER MORNING SCHEDULED MEDICATIONS HEART RATE DROPPED TO LOW 40'S DID THIS YESTERDAY WELL. ASYMPTOMATIC BLOOD PRESSURE STABLE AND PT EASILY AROUSEABLE.
--- NOTE | 2018-02-18 12:00 | NUR ---
DR PAUL ROUNDING ON PT
--- NOTE | 2018-02-18 15:00 | NUR ---
REASSESSMENT MADE PT NODS HEAD NO TO QUESTION OF PAIN REPOSITIONED FOR COMFORT PARTIAL BED LINEN CHANGE PT HAD SMALL STOOL
--- NOTE | 2018-02-18 17:00 | NUR ---
REPOSITIONED FOR COMFORT NO CHANGE IN VENT SETTINGS
--- NOTE | 2018-02-18 19:15 | NUR ---
PT RECEIVED ON SEDATION WITH EYES OPEN. NO S/S OF DISTRESS. ON VENT SIMV, VIA TRACH. DIPROVAN AT 30MCG. TUBE FEEDING PULMOCARE AT 40ML/HR VIA PEG, 30ML RESIDUAL NOTED. WILL CONTINUE TO OBSERVE.
--- NOTE | 2018-02-18 21:26 | NUR ---
PT REMOVING MONITOR LEADS WITH ELECTODES REPLACED AND REATTACHED. ALSO HAS DISCONECTED TRACH FROM VENT WITH VENT REATTACHED AND PT REMINDED TO NOT REMOVE TUBING AND WHAT IT IS FOR. WILL CONTINUE TO OBSERVE.
--- NOTE | 2018-02-18 23:02 | NUR ---
PT WITH EYES CLOSED. CONTINUES SEDATION AND VENT. EASILY AWOKEN TO VERBAL STIMULI. REASSESSMENT COMPLETED, SEE FLOW SHEET. WILL CONTINUE TO OBSERVE.
[2018-02-19] VITALS (26 sets, daily range): BP systolic 80–141; BP diastolic 47–87
--- NOTE | 2018-02-19 00:14 | NUR ---
TUBE FEEDING BAGS CHANGED WITH NEW LINE FOR DIPROVAN.
--- NOTE | 2018-02-19 01:57 | NUR ---
PT WITH EYES CLOSED AND CHEST RISING. CONTINUES SEDATION WITH VENT. NO S/S OF DISTRESS. WILL CONTINUE TO OBSERVE.
--- NOTE | 2018-02-19 03:20 | NUR ---
REASSESSMENT COMPLETED, SEE FLOW SHEET.
[2018-02-19 05:01] LABS: BASOPHILS 1.4 % (0-2); EOSINOPHILS 11.9 % (0-7); HEMATOCRIT 35.5 % (36.0-48.0); HEMOGLOBIN 10.8 g/dL (12-16); IMMATURE GRANULOCYTES 0.5 % (0-5); LYMPHOCYTES 29.2 % (15-50); MCHC 30.4 g/dL (31.0-37.0); MCV 85.3 fL (80.0-100.0); MEAN PLATELET VOLUME 9.2 fL (7.4-10.4); MONOCYTES 7.2 % (2-11); NEUTROPHILS 49.8 % (40-80); PLATELET COUNT 650 10x3/uL (130-400); RBC 4.16 10x6/uL (4.00-5.40); WBC 8.8 10x3/uL (4.8-10.8)
[2018-02-19 05:12] LABS: CALC OSMOLALITY 287 mosm/kg (275-300); CALCIUM 7.9 mg/dL (8.5-10.1); CARBON DIOXIDE 29.2 mmol/L (21.0-32.0); CHLORIDE - SERUM 111 mmol/L (98-107); GLUCOSE 113 mg/dL (74-106); MAGNESIUM - SERUM 1.6 mg/dL (1.8-2.4); POTASSIUM - SERUM 3.5 mmol/L (3.5-5.1); SODIUM 145 mmol/L (136-145); UREA NITROGEN 7 mg/dL (7-18)
[2018-02-19 05:13] LABS: CREATININE - SERUM 0.4 mg/dL (0.6-1.3); eGFR NON AFRICAN AMERICAN > 90 mL/min (90-120)
--- NOTE | 2018-02-19 06:06 | NUR ---
MAG 1.6 WITH 400MG GIVEN PER PEG AND REPORT FOR 400MG TO BE GIVEN AT 0930 PER ELECTROLYTE PROTOCOL. TUBE FEEDING PUMP STATING CLOGGED DOWN STREAM FROM PUMP, PEG TUBE FLUSHED WITHOUT DIFFICULTY. PUMP CONTINUED ALARMING AND PUMP CHANGED. WILL CONTINUE TO OBSERVE.
--- NOTE | 2018-02-19 06:58 | NUR ---
CVL DRESSING COMING OFF AND REPLACED USING STERILE TECHNIQUE. WILL CONTINUE TO OBSERVE.
--- NOTE | 2018-02-19 07:00 | NUR ---
REC'D REPORT AND RESUMED CARE, TRACH TO VENT AND SECURED, 40% FIO2, VSS, LT IJ TL WITH PROPOFAL INFUSING AT 30 MCG, USES LEFT ARM TO SIGNAL YOU INTO ROOM, ON VERBAL, DOES NOT MOVE LEGS OR RIGHT ARM, PEG TUBE WITH 40 CC/HR WITH SCHEDULED 100 CC FLUSH Q 2HOUIRS, RESIDUAL CHECK 5 CC. DOWNS TO GRAVITY WITH CLEAR YELLOW DRAINAGE TO BAG, RIGHT GREAT TOE WITH CDI DRESSING, DROPLET ISOLATION IN USE, ASSESSMENT COMPLETE PER FLOWSHEET, REPOSITIONED TO LEFT SIDE WITH PILLOW TO BACK AND HEELS FLOATED
--- NOTE | 2018-02-19 09:00 | NUR ---
MORNING MEDS GIVEN PER APR FLOWSHEET
--- NOTE | 2018-02-19 09:32 | NUR ---
Nutrition follow-up: Trach to vent; propofol @ 30 mcg/kg/min Pulmocare @ 40 ml/hr via PEG tube; pt tolerating labs reviewed Wt: 306# Tolerating TF @ this time RDN following.
--- NOTE | 2018-02-19 11:00 | NUR ---
CALLED TO ROOM, C/O OF PAIN POINTING TO HEAD, MS CONTIN 15 MG, GIVEN FOR PAIN 08/15, NO OTHER ACUTE CHANGE FROM PREVIOUS ASSESSMENT
--- NOTE | 2018-02-19 13:30 | NUR ---
RESTING ON TRACH COLLAR, O2 SAT 94%, NO ACUTE CHANGE FROM PREVIOUS
--- NOTE | 2018-02-19 15:00 | NUR ---
CHANGED BACK TO SIMV ON VENT, ALARMING, O2 SAT 64%, SUCTIONED MUCUS PLUG, O2 BACK UP TO 96%, NO OTHER ACUTE CHANGES FROM PREVIOUS ASSESSMENT
--- NOTE | 2018-02-19 16:30 | NUR ---
DR HERNANDEZ AT BEDSIDE FOR EVAL OF GREAT TOE, BETADINE PLACED AND REDRESSED WITH GAUZE DRESSING
--- NOTE | 2018-02-19 18:30 | NUR ---
RESTING WITH NO SIGN OF DISTRESS, VENT IN SIMV MODE, SAT 97%, NO OTHER ACUTE CHANGE FROM PREVIOUS
--- NOTE | 2018-02-19 19:35 | NUR ---
PT WITH EYES OPEN. DOWNS PATENT. VITAL SIGNS STABLE. DIPROVAN AT 40MCG/KG/MIN. WILL CONTINUE TO OBSERVE.
--- NOTE | 2018-02-19 21:20 | NUR ---
PT RECEIVED MEDS VIA PEG WITHOUT DIFFICULTY. PRN PAIN MEDICATION GIVEN FOR HEADACHE. WILL CONTINUE TO OBSERVE.
--- NOTE | 2018-02-19 23:15 | NUR ---
REASSESSMENT COMPLETED, SEE FLOW SHEET. WILL CONTINUE TO OBSERVE.
[2018-02-20] VITALS (21 sets, daily range): BP systolic 82–97; BP diastolic 28–75
--- NOTE | 2018-02-20 01:55 | NUR ---
PT WITH EYES CLOSED, CONTINUES SEDATION ON VENT. NO S/S OF DISTRESS. WILL CONTINUE TO OBSERVE.
--- NOTE | 2018-02-20 03:55 | NUR ---
PT COMPLAINS OF HEAD AND BACK PAIN WITH PRN PAIN MEDICATION GIVEN PER APR. MED GIVEN VIA PEG. WILL CONTINUE TO OBSERVE
[2018-02-20 05:05] LABS: BASOPHILS 1.6 % (0-2); EOSINOPHILS 11.8 % (0-7); HEMATOCRIT 35.3 % (36.0-48.0); HEMOGLOBIN 10.7 g/dL (12-16); IMMATURE GRANULOCYTES 0.4 % (0-5); MCH 25.9 pg (26.0-34.0); MCHC 30.3 g/dL (31.0-37.0); MCV 85.5 fL (80.0-100.0); MEAN PLATELET VOLUME 9.3 fL (7.4-10.4); MONOCYTES 6.8 % (2-11); NEUTROPHILS 53.4 % (40-80); PLATELET COUNT 647 10x3/uL (130-400); RBC 4.13 10x6/uL (4.00-5.40); RDW 19.1 % (11.5-14.5); WBC 9.3 10x3/uL (4.8-10.8)
[2018-02-20 05:35] LABS: CALC OSMOLALITY 290 mosm/kg (275-300); CALCIUM 8.1 mg/dL (8.5-10.1); CARBON DIOXIDE 28.3 mmol/L (21.0-32.0); CHLORIDE - SERUM 113 mmol/L (98-107); CREATININE - SERUM 0.3 mg/dL (0.6-1.3); GLUCOSE 108 mg/dL (74-106); MAGNESIUM - SERUM 1.9 mg/dL (1.8-2.4); POTASSIUM - SERUM 3.8 mmol/L (3.5-5.1); SODIUM 147 mmol/L (136-145); UREA NITROGEN 8 mg/dL (7-18); eGFR NON AFRICAN AMERICAN > 90 mL/min (90-120)
--- NOTE | 2018-02-20 10:47 | NUR ---
PLACED VENTILATOR ON CPAP 11/12 @ [address] NEWMAN.
[2018-02-20 19:11] LABS: ACID FAST SMEAR Negative (()); AFB SPECIMEN PROCESSING Concentration (())
--- NOTE | 2018-02-20 19:35 | NUR ---
PT RECEIVED WITH EYES OPEN WATCHING TV. ON VENT VIA TRACH. COMPLAINS OF PAIN TO HEAD AND BACK. SPO2 PROBE MOVED PER PT REQUEST. NO OTHER NEEDS MADE KNOWN. CALL LIGHT IN REACH. WILL CONTINUE TO OBSERVE.
[2018-02-21] VITALS (24 sets, daily range): BP systolic 79–141; BP diastolic 41–87
--- NOTE | 2018-02-21 02:30 | NUR ---
LEFT IJ DRESSING CHANGED PER PROTOCOL. PT TOLERATED WELL. WILL CONTINUE TO OBSERVE.
--- NOTE | 2018-02-21 03:55 | NUR ---
REASSESSMENT COMPLETED, SEE FLOW SHEET. DOWNS NOTED TO HAVE REMOVED, WITH NEW DOWNS PLACE USING STERILE PROCEDURE. COMPLETE LINEN CHANGE PROVIDED. WILL CONTINUE TO OBSERVE.
[2018-02-21 04:50] LABS: HEMATOCRIT 35.7 % (36.0-48.0); MCH 26.3 pg (26.0-34.0); MCHC 30.8 g/dL (31.0-37.0); MCV 85.4 fL (80.0-100.0); MEAN PLATELET VOLUME 9.2 fL (7.4-10.4); PLATELET COUNT 703 10x3/uL (130-400); RBC 4.18 10x6/uL (4.00-5.40); RDW 19.4 % (11.5-14.5); WBC 9.5 10x3/uL (4.8-10.8)
[2018-02-21 05:24] LABS: CALC OSMOLALITY 287 mosm/kg (275-300); CALCIUM 8.2 mg/dL (8.5-10.1); CARBON DIOXIDE 28.3 mmol/L (21.0-32.0); CHLORIDE - SERUM 110 mmol/L (98-107); GLUCOSE 114 mg/dL (74-106); MAGNESIUM - SERUM 1.8 mg/dL (1.8-2.4); POTASSIUM - SERUM 3.7 mmol/L (3.5-5.1); SODIUM 145 mmol/L (136-145); UREA NITROGEN 8 mg/dL (7-18)
[2018-02-21 05:25] LABS: HYPOCHROMASIA 1+; LYMPHOCYTES 31 % (15-50); MONOCYTES 4 % (2-11); NEUTROPHILS 56 % (40-80); PLATELET ESTIMATE INCREASED; PLATELET MORPHOLOGY NORMAL PLT MORPH; TARGET CELLS OCC
[2018-02-21 05:39] LABS: CREATININE - SERUM 0.4 mg/dL (0.6-1.3); eGFR NON AFRICAN AMERICAN > 90 mL/min (90-120)
--- NOTE | 2018-02-21 07:00 | NUR ---
AWAKE AND ALERT OBEYING COMMANDS, TRYING TO TALK. TRACH INTACT TO VENT. DIPIRIVAN TURNED OFF. TUBE FEEDING CONTINUES PER PEG PULMOCARE AT 40 ML HOUR. DOWNS CATH PATENT DRAINING CLEAR YELLOW URINE. HEAD OF BED ELEVATED 30. NO DISTRESS. WATCHING TV. NURSE CALL LIGHT IN HAND
--- NOTE | 2018-02-21 09:00 | NUR ---
PLACED ON CPAP. TOLERATING WELL. NO DISTRESS. RESP DEEP AND REGULAR.
--- NOTE | 2018-02-21 09:46 | NUR ---
on cpap per vent. no resp distress noted. resp rate less than 20. smiles makes eye contact. moves left arm to gesture
--- NOTE | 2018-02-21 11:00 | NUR ---
CONTINUES TO TOLERATE CPAP WITHOUT DISTRESS. RESP DEEP AND REGULAR. WATCHING TV. NO CHANGE. DRESSING APPLIED TO COCCYX. PINPOINT OPEN AREA NOTED IN CRACK OF COCCYX.
--- NOTE | 2018-02-21 11:00 | NUR ---
Pulmocare continues at 40mL/hour No fluids running at this time Ventilator on CPAP trials Reviewed labs and chart Pt has a stage 2 decubitus ulcer on buttock REC: Increase TF to 55mL/hour as pt needs additional calories and protein to help prevent skin breakdown and promote healing. Recommend to start water flush of 30mL/hour. RD following
--- NOTE | 2018-02-21 13:00 | NUR ---
HERE AND A FRIEND. UPDATE GIVEN. NO DISTRESS TOLERATING CPAP WELL. TUBE FEEDING CONTINUES AT 40 ML HOUR
[2018-02-21 13:21] LABS: FUNGUS STAIN Final report (())
--- NOTE | 2018-02-21 14:08 | NUR ---
PATEINT REQUESTING SOMETHING FOR ITCHING. BENADRYL GIVEN PER PEG. AND FRIEND HERE.UPSET BECAUSE HALFWAY WOULD NOT TELL THEM WHERE SHE WAS.
--- NOTE | 2018-02-21 16:00 | NUR ---
TOLERATING CPAP WELL. NO RESP DISTRESS. SUCTION SMALL AMOUNTS FROM ETT AND MOUTH. DAUGHTER HERE.
--- NOTE | 2018-02-21 17:57 | NUR ---
SPONGE BATH GIVEN WITH LINEN CHANGE. PERICARE DONE. DRESSING INTACT ON COCCYX NO DRAINAGE NOTED, NO SKIN BREAK DOWN NOTED. NO DISTRESS STILL ON CPAP DOWNS CATH PATENT DRAINING CLEAR YELLOW URINE. IVPB STARTED WITH NEW TUBING. TUBE FEEDING CONTINUES AT 40 ML HOUR PER PEG. DRESSING INTACT AROUND PEG SITE NO DRAINAGE OR REDNESS
--- NOTE | 2018-02-21 19:00 | NUR ---
RECEIVED PATIENT FROM DAY SHIFT RN. KI, MOUTHS WORDS TO COMMUNICATE DUE TO TRACH. PATIENT STATES THAT SHE IS IN PAIN. I INFORMED HER OF WHEN SHE RECEIVED HER LAST DOSE AND AT WHAT TIME SHE COULD RECEIVE THE NEXT DOSE. INITIAL SHIFT ASSESSMENT COMPLETED, SEE FLOWSHEET. VSS. WILL MONITOR CLOSELY THROUGH OUT THE NIGHT.
--- NOTE | 2018-02-21 21:00 | NUR ---
PM MEDS GIVEN PER MD ORDERS, SEE APR. VSS. NO COMPLAINTS AT THIS TIME. WILL CTM.
--- NOTE | 2018-02-21 23:00 | NUR ---
SHIFT REASSESSMENT COMPLETED, SEE FLOWSHEET. PATIENT AWAKE AT THIS TIME WATCHING TV. VSS. WILL CTM.
[2018-02-22] VITALS (24 sets, daily range): BP systolic 92–133; BP diastolic 40–73
--- NOTE | 2018-02-22 01:00 | NUR ---
PATIENT APPEARS TO BE RESTING COMFORTABLY. VSS. Q2H TURN IN EFFECT. SPOKE TO PATIENT'S BROTHER AT HER REQUEST. WILL CTM.
[2018-02-22 03:43] LABS: BASOPHILS 1.7 % (0-2); EOSINOPHILS 11.4 % (0-7); HEMATOCRIT 34.3 % (36.0-48.0); HEMOGLOBIN 10.4 g/dL (12-16); IMMATURE GRANULOCYTES 0.4 % (0-5); LYMPHOCYTES 27.6 % (15-50); MCH 26.1 pg (26.0-34.0); MCHC 30.3 g/dL (31.0-37.0); MEAN PLATELET VOLUME 8.9 fL (7.4-10.4); MONOCYTES 8.3 % (2-11); NEUTROPHILS 50.6 % (40-80); PLATELET COUNT 607 10x3/uL (130-400); RBC 3.99 10x6/uL (4.00-5.40); WBC 9.8 10x3/uL (4.8-10.8)
[2018-02-22 04:14] LABS: CALC OSMOLALITY 275 mosm/kg (275-300); CARBON DIOXIDE 29.5 mmol/L (21.0-32.0); CHLORIDE - SERUM 108 mmol/L (98-107); CREATININE - SERUM 0.3 mg/dL (0.6-1.3); GLUCOSE 105 mg/dL (74-106); MAGNESIUM - SERUM 1.6 mg/dL (1.8-2.4); POTASSIUM - SERUM 3.6 mmol/L (3.5-5.1); SODIUM 139 mmol/L (136-145); UREA NITROGEN 7 mg/dL (7-18); eGFR NON AFRICAN AMERICAN > 90 mL/min (90-120)
--- NOTE | 2018-02-22 07:00 | NUR ---
PATIENT RESTING IN BED AWAKE AND ALERT. RT PLACED ON CPAP MODE VIA TRACH COLLAR AND PATIEN IS TOLERATING IT WELL. LAST BP TOOK READ 88/41.R 84. O2 SAT 98. PATIENT ASYMPTOMATIC FROM LOW BP. WILL CONTINUE TO WATCH. DOWNS DRAINING DRAINING CLEAR YELLOW URINE. PULMICARE INFUSING THROUGH LEFT UPPER QUADRANT PEG TUBE. RIGHT ARM IS CONCTRACTURED AND HURTS PATIENT WHEN MOVED.
--- NOTE | 2018-02-22 08:53 | NUR ---
ADMINISTERED 2ND DOSE OF MAGNESIUM PER PROTOCOL. FLUSHED PEG TUBE AND ASPIRATED 10 CC. MEDS GIVEN THROUGH PEG. VSS. NO COMPLAINTS.
--- NOTE | 2018-02-22 11:00 | NUR ---
PTINET IS RESTING WITH STABLE VS ON CPAP MODE OF VENT THROUGH TRACH. NO COMPLAINTS.
--- NOTE | 2018-02-22 13:00 | NUR ---
PT RESTING IN BED C STABLE VITAL SIGNS. hR IS IN LOW 50'S, BUT IT IS REGULAR AND SINUS. PATIENT IS ASYMPTOMATIC. WILL CONTINUE TO MONITOR
--- NOTE | 2018-02-22 15:54 | NUR ---
PT HAD SMALL LIQUID INCONTINENT BM. NURSES CLEANED PATIENT, CHANGED PADS, AND TURNED TO RIGHT SIDE POSITION.
--- NOTE | 2018-02-22 16:15 | NUR ---
PLACED ON T-COLLAR AT THIS TIME AT 40% O2. PATIENT IS TOLERATING WELL. VSS. ADMINISTERED PRN MORPHINE PER REQUEST. WILL CONTINUE TO MONITOR.
--- NOTE | 2018-02-22 18:00 | NUR ---
NO CHANGES IN STATUS. SUCTIONED THICK YELLOW SECRETIONS FROM TRACHEOSTOMY. HEELS ELEVATED ON PILLOW. TUBING FORM PULMICARE PEG TUBE FEED HAS BEEN CHANGED. PULMICARE INFUSING AT 40ML/HR WITH 100 CC FLUSHES Q2 HOURS. HOB ELEVATED 30 DEGREES. NO COMPLAINTS. WILL CONTINUE TO MONITOR
--- NOTE | 2018-02-22 19:00 | NUR ---
RECEIVED PATIENT FROM DAY SHIFT RN. PATIENT AWAKE AND ALERT WATCHING TV AT THIS TIME. SHE STATES THAT SHE IS IN PAIN AND WOULD LIKE TO BE SUCTIONED. INITIAL SHIFT ASSESSMENT COMPLETED, SEE FLOWSHEET. VSS. WILL MONITOR CLOSELY THROUGH OUT THE NIGHT.
--- NOTE | 2018-02-22 21:00 | NUR ---
PM MEDS GIVEN PER MD ORDERS ALONG WITH PAIN MEDICATION, SEE MAR. CHG AND SURE STEPS WIPES ALSO USED AT THIS TIME BECAUSE TUBE FEEDS LEAKED IN BED. NEW TUBE FEED BAG ALSO HUNG. PATIENT TOLERATED WELL. VSS. WILL CTM.
--- NOTE | 2018-02-22 23:00 | NUR ---
REASSESSMENT COMPLETED, SEE FLOWSHEET. VSS. WILL CTM.
[2018-02-23] VITALS (24 sets, daily range): BP systolic 98–144; BP diastolic 45–77
--- NOTE | 2018-02-23 01:00 | NUR ---
PATIENT APPEARS TO BE RESTING COMFORTABLY. VSS. WILL CTM.
--- NOTE | 2018-02-23 03:00 | NUR ---
REASSESSMENT COMPLETED, SEE FLOWSHEET. VSS. WILL CTM.
[2018-02-23 04:33] LABS: BASOPHILS 2.4 % (0-2); EOSINOPHILS 12.3 % (0-7); HEMATOCRIT 35.6 % (36.0-48.0); HEMOGLOBIN 10.7 g/dL (12-16); IMMATURE GRANULOCYTES 0.3 % (0-5); LYMPHOCYTES 35.7 % (15-50); MCH 26.1 pg (26.0-34.0); MCHC 30.1 g/dL (31.0-37.0); MCV 86.8 fL (80.0-100.0); MEAN PLATELET VOLUME 9.3 fL (7.4-10.4); MONOCYTES 9.1 % (2-11); NEUTROPHILS 40.2 % (40-80); PLATELET COUNT 664 10x3/uL (130-400); RDW 19.4 % (11.5-14.5); WBC 8.7 10x3/uL (4.8-10.8)
[2018-02-23 04:47] LABS: ALBUMIN 1.9 g/dL (3.4-5.0); ALKALINE PHOSPHATASE 125 U/L (46-116); ALT (SGPT) 34 U/L (10-68); CALC OSMOLALITY 284 mosm/kg (275-300); CALCIUM 8.1 mg/dL (8.5-10.1); CARBON DIOXIDE 30.9 mmol/L (21.0-32.0); CHLORIDE - SERUM 107 mmol/L (98-107); CREATININE - SERUM 0.3 mg/dL (0.6-1.3); GLUCOSE 102 mg/dL (74-106); POTASSIUM - SERUM 3.4 mmol/L (3.5-5.1); PROTEIN - SERUM 6.8 g/dL (6.4-8.2); SODIUM 144 mmol/L (136-145); UREA NITROGEN 7 mg/dL (7-18); eGFR NON AFRICAN AMERICAN > 90 mL/min (90-120)
--- NOTE | 2018-02-23 05:00 | NUR ---
PATIENT APPEARS TO BE RESTING COMFORTABLY. SHE REQUESTED THAT THE CURTAIN BE CLOSED TO BLOCK OUT SOME OF THE LIGHT. VSS. NO ACUTE CHANGES NOTED. WILL CTM.
--- NOTE | 2018-02-23 07:00 | NUR ---
PT RESTING IN BED AWAKE AND ALERT. VSS. PULMICARE INFUSING THROUGH PEG AT PRESCRIBED RATE. CALL SUAREZ IN REACH. WILL CONTINUE TO MONITOR
--- NOTE | 2018-02-23 08:00 | NUR ---
PATINET PLACED ON TRACH COLLAR AT THIS TIME 40 % OXYGEN WITH NO DIFFICULTY. WILL CONTINUE TO MONITOR
--- NOTE | 2018-02-23 08:08 | NUR ---
Placed on 40% Trach collar. Hr 80, RR 14, SpO2 97%.
--- NOTE | 2018-02-23 09:53 | NUR ---
Nutrition follow-up: Pulmocare infusing @ 40 ml/hr with 100 ml flush Q 2 hours via PEG Labs reviewed Wt: 297# Pt not meeting estimated energy needs with current TF rate now that propofol off. RDN increasing TF to goal rate of 55 ml/hr to better meet pts estimated energy needs. RDN following.
--- NOTE | 2018-02-23 10:00 | NUR ---
PATIENT RESTING IN BED AWAKE AND ALERT WITH STABLE VS. ON TRACH COLLAR AT 40%. TOLERATING WELL. NURSE SUCTIONED TRACH. TURNED PATIENT TO RIGHT SIDE. WILL CONTINUE TO MONITOR
--- NOTE | 2018-02-23 12:00 | NUR ---
PATIENT RESTING IN BED C CALL SUAREZ IN REACH. REPOSITIONED RIGHT ARM FOR COMFORT. C/O PAIN--ENSURED PAIN RX WILL BE BROUGHT AT NEXT AVAILABLE DOSE. VSS. WILL CONTINUE TO MONITOR
--- NOTE | 2018-02-23 15:23 | NUR ---
PATIENT HAD MEDIUM SOLID BM. NURSES CLEANED AND CHANGED ALL LINENS AND TURNED TO RIGHT SIDE. CLEANED CATHER WELL. ALSO CHANGED DRESSING TO SACRAL WOUND. WOUND APPEARS TO HAVE 3 PIN SIZED TUNNELS. VSS. WILL CONTINUE TO MONITOR
--- NOTE | 2018-02-23 17:00 | NUR ---
REPOSITIONED PATIENT TO BACK PER REQUEST. LINENS CLEAN AND DRY. VSS. WILL CONTINUE TO MONITOR.
--- NOTE | 2018-02-23 18:02 | NUR ---
ADMNISTERED PRN PAIN MED WITH OTHER SCHEDULE MEDICATIONS VIA PEG TUBE. CHANGED OUT PULMICARE FEED TUBING. VSS.
--- NOTE | 2018-02-23 19:30 | NUR ---
REPORT RECEIVED, CARE ASSUMED. PT RESTING IN BED AT THIS TIME. INITIAL ASSESSMENT COMPLETED, SEE FLOWSHEET. NO SIGNS OF ACUTE DISTRESS. WILL CONTINUE TO MONITOR.
--- NOTE | 2018-02-23 21:07 | NUR ---
PT CONTINUES TO REST IN BED. NO SIGNS OF ACUTE DISTRESS. WILL CONTINUE TO MONITOR.
--- NOTE | 2018-02-23 23:07 | NUR ---
REASSESSMENT COMPLETED, SEE FLOWSHEET. PT REPOSITIONED FOR COMFORT. NO SIGNS OF ACUTE DISTRESS. WILL CONTINUE TO MONITOR.
[2018-02-24] VITALS (24 sets, daily range): BP systolic 117–156; BP diastolic 55–92
--- NOTE | 2018-02-24 01:04 | NUR ---
PT REPOSITIONED FOR COMFORT. SUCTIONING PERFORMED. NO SIGNS OF ACUTE DISTRESS. WILL CONTINUE TO MONITOR.
--- NOTE | 2018-02-24 03:04 | NUR ---
REASSESSMENT COMPLETED, SEE FLOWSHEET. PT REPOSITIONED FOR COMFORT. ORAL CARE AND SUCTIONING PERFORMED. NO SIGNS OF ACUTE DISTRESS. WILL CONTINUE TO MONITOR.
[2018-02-24 04:52] LABS: MAGNESIUM - SERUM 1.6 mg/dL (1.8-2.4); POTASSIUM - SERUM 3.6 mmol/L (3.5-5.1)
--- NOTE | 2018-02-24 05:04 | NUR ---
PT REPOSITIONED IN BED. ORAL CARE AND SUCTIONING PERFORMED. AM LABS REVIEWED. ELECTROLYTE PROTOCOL FOLLOWED. NO SIGNS OF ACUTE DISTRESS. WILL CONTINUE TO MONITOR.
--- NOTE | 2018-02-24 07:15 | NUR ---
PATIENT RESTING IN BED SEDATED ON VENT TO SIMV PRESCRIBED SETTINGS. DIPRIVAN DRIP AT 15MCG/MIN. TUBE FEED HAD SPILLED ONTO LINENS, NURSES CHANGED ALL LINENS. SUCTIONED COPIOUS AMOUNTS OF SECRETION. TURNED OFF TUBE FEED AND FLUSHED GTUBE DUE TO ORDER CHANGE.
--- NOTE | 2018-02-24 09:00 | NUR ---
PATIENT RESTING IN BED SEDATED ON VENT. VSS. WILL CONTINUE TO MONITOR. ALSO TURNED PATIENT TO RIGHT SIDE.
--- NOTE | 2018-02-24 09:00 | NUR ---
SUCTIONED PATIENT AND ADMINISTERD MEDS AND PRN PAIN RX CRUSHED VIA PEG TUBE. ON TRACH COLLAR AT 40% WITH O2 SAT 97%. VSS.
--- NOTE | 2018-02-24 12:15 | NUR ---
BRONCHOSCOPY PROCEDURE BY DR. NEWMAN AND RT. REMOVED MUCOUS MOSTLY FROM LEFT LUNG. PT TOLERATED WELL.
--- NOTE | 2018-02-24 15:00 | NUR ---
CHANGED OUT PULMICARE TUBE FEEDING.
--- NOTE | 2018-02-24 17:00 | NUR ---
CHANGED ALL PATIENT LINENS, CHANGED COCCYGEAL WOUND DRESSING, AND TURNED TO LEFT SIDE. VSS. NO COMPLAINTS.
--- NOTE | 2018-02-24 17:08 | NUR ---
DISCUSSED WITH PATIENTS HOW THE RIGHT FOOOT WOUND IS CARED FOR AT HOME. SINCE WOUND CARE NURSE HAS NOT COME BY YET AND IS NOT HERE ON WEEKENDS, NURSE TREAT WOUND THEY DO AT HOME. WET 1 INCH MAXORBANT PAD WITH SALINE AND APPLY SANTYL OINTMENT TO ON TO OF THAT, THEN GENTLY APPLY TO WOUND. PLACE 4X4 GUAZE OVER THAT, AND WRAPPED WHOLE FOOT WITH CURLEX.
--- NOTE | 2018-02-24 19:04 | NUR ---
REPORT RECEIVED, CARE ASSUMED. INITIAL ASSESSMENT COMPLETED, SEE FLOWSHEET. PT REPOSITIONED FOR COMFORT. ORAL CARE AND SUCTIONING PERFORMED. NO SIGNS OF ACUTE DISTRESS. WILL CONTINUE TO MONITOR.
--- NOTE | 2018-02-24 21:04 | NUR ---
PT REPOSITIONED FOR COMFORT. NO SIGNS OF ACUTE DISTRESS. WILL CONTINUE TO MONITOR.
--- NOTE | 2018-02-24 23:04 | NUR ---
REASSESSMENT COMPLETED, SEE FLOWSHEET. PT REPOSITIONED FOR COMFORT. ORAL CARE AND SUCTIONING PERFORMED. NO SIGNS OF ACUTE DISTRESS. WILL CONTINUE TO MONITOR.
[2018-02-25] VITALS (24 sets, daily range): BP systolic 101–153; BP diastolic 53–87
--- NOTE | 2018-02-25 01:05 | NUR ---
PT REPOSITIONED FOR COMFORT. ORAL CARE AND SUCTIONING PERFORMED. NO SIGNS OF ACUTE DISTRESS. WILL CONTINUE TO MONITOR.
--- NOTE | 2018-02-25 03:05 | NUR ---
REASSESSMENT COMPLETED, SEE FLOWSHEET. PT REPOSITIONED FOR COMFORT. ORAL CARE AND SUCTIONING PERFORMED. NO SIGNS OF ACUTE DISTRESS. WILL CONTINUE TO MONITOR.
--- NOTE | 2018-02-25 05:05 | NUR ---
PT REPOSITIONED FOR COMFORT. ORAL CARE AND SUCTIONING PERFORMED. NO SIGNS OF ACUTE DISTRESS. WILL CONTINUE TO MONITOR.
[2018-02-25 05:50] LABS: BASOPHILS 1.5 % (0-2); EOSINOPHILS 6.3 % (0-7); IMMATURE GRANULOCYTES 0.3 % (0-5); LYMPHOCYTES 24.7 % (15-50); MCH 26.3 pg (26.0-34.0); MCHC 30.6 g/dL (31.0-37.0); MCV 85.9 fL (80.0-100.0); MEAN PLATELET VOLUME 9.8 fL (7.4-10.4); MONOCYTES 7.9 % (2-11); NEUTROPHILS 59.3 % (40-80); PLATELET COUNT 630 10x3/uL (130-400); RBC 4.19 10x6/uL (4.00-5.40); RDW 19.3 % (11.5-14.5); WBC 11.9 10x3/uL (4.8-10.8)
[2018-02-25 06:03] LABS: CALC OSMOLALITY 285 mosm/kg (275-300); CARBON DIOXIDE 34.1 mmol/L (21.0-32.0); CHLORIDE - SERUM 106 mmol/L (98-107); CREATININE - SERUM 0.3 mg/dL (0.6-1.3); GLUCOSE 113 mg/dL (74-106); POTASSIUM - SERUM 3.5 mmol/L (3.5-5.1); SODIUM 144 mmol/L (136-145); UREA NITROGEN 7 mg/dL (7-18); eGFR NON AFRICAN AMERICAN > 90 mL/min (90-120)
--- NOTE | 2018-02-25 07:00 | NUR ---
PATIENT RESTING IN BED C CALL SUAREZ IN REACH. AWAKE AND ALERT. VSS. LUNG KENNEDY COARSE. SUCTIONED TRACH. ON VENT SET TO SIMV MODE. WILL CONTINUE TO MONITOR
--- NOTE | 2018-02-25 09:00 | NUR ---
SUCTIONED PATIENT TRACH. VSS. TF INFUSING THROUGH PEG TUBE AT PRESCRIBED RATE.
[2018-02-25 10:41] LABS: MAGNESIUM - SERUM 1.6 mg/dL (1.8-2.4); POTASSIUM - SERUM 4.2 mmol/L (3.5-5.1)
--- NOTE | 2018-02-25 12:00 | NUR ---
BRONCHOSCOPY PERFORMED BY DR. NEWMAN AT THIS TIME. NO COMPLICATIONS AROSE. VSS.
--- NOTE | 2018-02-25 14:00 | NUR ---
CHANGED PULMICARE FEED TUBING. INFUSING AT 55ML/HR WITH 25 CC FLUSH Q 2 HOURS.
--- NOTE | 2018-02-25 15:18 | NUR ---
TURNED PATIENT TO RIGHT SIDE. LINENS ARE CLEAN AND DRY. NO BM. NO COMPLAINTS.
[2018-02-26] VITALS (24 sets, daily range): BP systolic 11–131; BP diastolic 50–85
[2018-02-26 05:14] LABS: BASOPHILS 1.5 % (0-2); EOSINOPHILS 8.5 % (0-7); HEMATOCRIT 34.8 % (36.0-48.0); HEMOGLOBIN 10.7 g/dL (12-16); IMMATURE GRANULOCYTES 0.2 % (0-5); LYMPHOCYTES 29.1 % (15-50); MCH 26.4 pg (26.0-34.0); MCHC 30.7 g/dL (31.0-37.0); MCV 85.9 fL (80.0-100.0); MEAN PLATELET VOLUME 9.7 fL (7.4-10.4); MONOCYTES 7.9 % (2-11); NEUTROPHILS 52.8 % (40-80); PLATELET COUNT 567 10x3/uL (130-400); RBC 4.05 10x6/uL (4.00-5.40); RDW 19.2 % (11.5-14.5); WBC 12.6 10x3/uL (4.8-10.8)
[2018-02-26 05:44] LABS: CALC OSMOLALITY 280 mosm/kg (275-300); CALCIUM 8.5 mg/dL (8.5-10.1); CARBON DIOXIDE 31.4 mmol/L (21.0-32.0); CHLORIDE - SERUM 105 mmol/L (98-107); CREATININE - SERUM 0.4 mg/dL (0.6-1.3); GLUCOSE 102 mg/dL (74-106); MAGNESIUM - SERUM 1.7 mg/dL (1.8-2.4); POTASSIUM - SERUM 3.8 mmol/L (3.5-5.1); SODIUM 142 mmol/L (136-145); UREA NITROGEN 6 mg/dL (7-18); eGFR NON AFRICAN AMERICAN > 90 mL/min (90-120)
--- NOTE | 2018-02-26 06:45 | NUR ---
Nutrition follow-up: Pt intubated, trached PEG tube with Pulmocare @ goal rate of 55 ml/hr; h2o flush 25 ml q 2 hours s/p bronch Labs reviewed Wt: 296# Tolerating TF RDN following.
--- NOTE | 2018-02-26 07:00 | NUR ---
PATIENT RESTING IN BED AWAKE AND ALERT ON VENTILATOER VIA TRACH. POSITINED TO LEFT SIDE WITH PULMICARE INFUSING VIA PEG TUBE. NS AT KVO. TEMPERATURE 98.3. VSS.
--- NOTE | 2018-02-26 08:36 | NUR ---
REPOSITIONED PATIENT TO BACK. BLUISH DISCOLORED BULGE OVER RIGHT LOWER QUADRANT. WILL NOTIFY PHYSICIAN. STOMACH IS DISTENDED AND HAS HAD NO BM SINCE THE . STOPPED PULMICARE INFUSION. WILL NOTIFY PHYSICIAN OF CONSTIPATION. SUCTIONED TRACH. VSS.
--- NOTE | 2018-02-26 11:06 | NUR ---
CALLED DR. MACKENZIE'S OFFICE TODAY FOR ORDERS REGARDING PAIN MEDS, CONSTIPATION, AND ABDOMINAL LUMP. GROUND SUPPORT EQUIPMENT ASSEMBLER STATED SHE WOULD INFORM THE NURSE PRACTIONER TO CALL ME.
--- NOTE | 2018-02-26 13:08 | NUR ---
SPOKE TO DR. MACKENZIE ABOUT CONCERNS WITH CONSTIPATION, LEFT LOWER QUADRANT LUMP, AND PAIN MEDICATION. ORDERS FOR KUB AND COLACE BID.
--- NOTE | 2018-02-26 15:00 | NUR ---
VSS. ON TRACH COLLAR AT 40%. CALL SUAREZ IN REACH. PATIENT STABLE.
--- NOTE | 2018-02-26 17:00 | NUR ---
CHANGED ALL LINENS AND CHANGED COCCYX DRESSING. SMALL BM. DIGITALLY REMOVED CORA CONSISTENCY IMPACTION. CLEANED, LINEN CHANGE, AND PULLED UP IN BED AND TURNED TO LEFT SIDE. ON TRACH COLLAR AT 40% VSS.
--- NOTE | 2018-02-26 19:00 | NUR ---
REPORT RECEIVED CARE ASSUMED. INITIAL SHIFT ASSESSMENT COMPLETED SEE FLOWSHEET. PT CURRENTLY ON TRACH COLLAR 40% TOLERATING WELL. BEING MONITORED PER STANDARD ICU PROTOCOL WITH ALL ALARMS SET, VERIFIED AND AUDIBLE AT NURSES STATION. PT NOTED TO BE ABLE TO COMMUNICATE USING "MOUTHING WORDS" AND GESTURES WITH LEFT HAND/ARM. PT UNABLE TO MOVE ANY OTHER EXTREMETY. RIGHT ARM AND HAND CONTRACTED AND PT EXHIBITS PAINFUL EXPRESSIONS WITH EVEN LIGHT TOUCH. UNABLE TO TOLERERATE ROM. LEGS ARE STIFF AND PT COMMUNICATED SHE HAS SOME FEELING IN THEM BUT CAN NOT MOVE THEM. PILLOWS AND WEDGES ARE USED TO PROVIDE SUPPORT, RELIEVE PRESSURE, ELEVATE ARMS AND FLOAT HEELS. PT IS TOTAL CARE FOR ALL ADLS. TURNED AND REPOSITIONED AND DRESSING TO COCCYX NOTED TO BE CDI. PERICARE AND F/C DONE PER PROTOCOL. IV IS S/L ALL LUMENS FLUSH EASILY. PEG DRESSING INTACT. PLACEMENT CONFIRMED AND RESIDUAL CHECKED 10CC. RETURNED AND FLUSHED. PT RECEIVING PULMOCARE AT 55CC/HR WITH A Q2H 25CC WATER FLUSH ALL PER [place] PUMP. F/C PATENT DRAINING TO GRAVITY BAG. PT REMAINS IN DROPLET ISOLATION WITH ALL PRECAUTIONS MAINTAINED.
--- NOTE | 2018-02-26 21:00 | NUR ---
MEDS GIVEN DOCUMENTED ON APR. PT ABLE TO COMMUNICATE NEEDS AND ABLE TO USE CALL LIGHT TO REQUEST ASSISTANCE. PT COMMUNICATES SHE IS "OK" AT THIS TIME.
--- NOTE | 2018-02-26 23:00 | NUR ---
SHIFT REASSESSMENT COMPLETED SEE FLOWSHEET. NO SIGNFICANT CHANGES. PT HAS BEEN SLEEPING THIS EVENING. VSS.
[2018-02-27] VITALS (24 sets, daily range): BP systolic 101–131; BP diastolic 49–69
--- NOTE | 2018-02-27 01:00 | NUR ---
PT IS SLEEPING WELL AT THIS TIME. CONTINUES TO BE ON TRACH COLLAR AND IS TOLERATING WELL. DID SPEAK WITH RT REGARDING TRACH COLLAR VS VENT AT HS AND PER ORDER PT IS TO TRACH COLLAR TOLERATED. RT AND VENT ON STANDBY IS PT REQUIRES FURTHER INTERVENTION
--- NOTE | 2018-02-27 03:00 | NUR ---
SHIFT REASSESSMENT COMPLETED SEE FLOWSHEET. NO SIGNIFICANT CHANGES PT HAS BEEN RESTING WELL. RADIOLOGY AT BEDSIDE FOR AM CXR. PT TOLERATED WELL. NEW TUBE FEEDING BAG HUNG WITH PULMOCARE. LABELED APPROPRIATE.
[2018-02-27 06:39] LABS: EOSINOPHILS 7.2 % (0-7); HEMATOCRIT 36.9 % (36.0-48.0); HEMOGLOBIN 11.4 g/dL (12-16); IMMATURE GRANULOCYTES 0.3 % (0-5); LYMPHOCYTES 11.6 % (15-50); MCH 26.8 pg (26.0-34.0); MCHC 30.9 g/dL (31.0-37.0); MCV 86.6 fL (80.0-100.0); MEAN PLATELET VOLUME 9.8 fL (7.4-10.4); MONOCYTES 3.3 % (2-11); NEUTROPHILS 76.6 % (40-80); PLATELET COUNT 547 10x3/uL (130-400); RBC 4.26 10x6/uL (4.00-5.40); RDW 19.5 % (11.5-14.5)
[2018-02-27 06:52] LABS: WBC 19.6 10x3/uL (4.8-10.8)
--- NOTE | 2018-02-27 06:54 | NUR ---
pt vomited 30cc emesis. meds given as documented on apr. care provided.
--- NOTE | 2018-02-27 07:00 | NUR ---
SHIFT ASSESSMENT COMPLETED, PT CARE ASSUMED. MONITORS ON AND WORKING. VITALS STABLE. HEART RATE NORMAL SINUS. NO SIGNS/SYMPTOMS OF PAIN OR DISCOMFORT NOTED AT THIS TIME. CALL LIGHT WITHINREACH, WILL CONTINUE TO OBSERVE.
[2018-02-27 07:02] LABS: ALKALINE PHOSPHATASE 122 U/L (46-116); ALT (SGPT) 32 U/L (10-68); BILIRUBIN - TOTAL 0.17 mg/dL (0.2-1.3); CALC OSMOLALITY 281 mosm/kg (275-300); CALCIUM 8.5 mg/dL (8.5-10.1); CARBON DIOXIDE 29.9 mmol/L (21.0-32.0); CHLORIDE - SERUM 106 mmol/L (98-107); CREATININE - SERUM 0.4 mg/dL (0.6-1.3); GLUCOSE 110 mg/dL (74-106); POTASSIUM - SERUM 3.9 mmol/L (3.5-5.1); SODIUM 142 mmol/L (136-145); eGFR NON AFRICAN AMERICAN > 90 mL/min (90-120)
[2018-02-27 07:04] LABS: MAGNESIUM - SERUM 2.3 mg/dL (1.8-2.4); UREA NITROGEN 8 mg/dL (7-18)
--- NOTE | 2018-02-27 09:00 | NUR ---
PT TURNED AND REPOSITIONED AND CLEANED FROM LARGE BM, COMPLETE LINEN CHANGE COMPLETED AT THIS TIME WELL. PT TOLERATING TRACH COLLAR WELL, PT AWAKE AND ALERT. NO SIGNS/SYMPTOMS OF PAIN OR DISCOMFORT AT THIS TIME. WILL CONTINUE TO OBSERVE. CALL LIGHT WTIHIN REACH.
--- NOTE | 2018-02-27 11:00 | NUR ---
PT TURNED AND REPOSITIONED, NO SIGNS/SYMPTOMS OF PAIN OR DISCOMFORT. NO CHANGES, MONITORS ON AND WORKING. VITALS STABLE. SEE FLOW SHEET FOR FURTHER DETAILS. WILL CONTINUE TO OBSERVE.
--- NOTE | 2018-02-27 13:00 | NUR ---
PT TURNED AND REPOSITIONED, MONITORS ON AND WORKING, VITALS STABLE, WILL CONTINUE TO OBSERVE.
--- NOTE | 2018-02-27 15:00 | NUR ---
NO CAHNGES, MONITORS ON AND WORKING, VITALS STABLE, SEE FLOW SHEET FOR FURTHER DETails. will continue to observe.
--- NOTE | 2018-02-27 17:00 | NUR ---
pt turned and repositioned, cleaned of large bm and complete linen change done at this time, dressing cdi, monitors on and working, vitals stable. call light within reach, will continue to observe.
--- NOTE | 2018-02-27 19:00 | NUR ---
REPORT RECEIVED CARE ASSUMED INITIAL SHIFT ASSESSMENT COMPLETED SEE FLOWSHEET. PT LYING IN BED HOB ELEVATED 30 DEGREES. PT AAOX4 WITH CLEAR SPEECH. PT WEARING PACIMIER VALVE AND TOLERATING WELL. VSS. REQUESTED HER DINNER TRAY THAT HAS BEEN SENT. CONFIRMED PER SPEECH THERAPY SWALLOW EVAL DONE TODAY [facility] SOFT DIET AND THIN LIQUIDS RECOMMENDED. PT GIVEN 1/2 SOFT MEAT SANDWICH AND WITH 1:1 MONITORING FED SELF. NO SWALLOWING DIFFICULTIES NOTED. TOLERATED WATER WELL ABLE TO HOLD AND MANEUVER OWN CUP WITH LEFT ARM/HAND. PT CONTINUES TO BE MONITORED PER STANDARD ICU PROTOCOL WITH ALL ALARMS SET, VERIFIED AND AUDIBLE AT NURSES STATION. PT IS TOTAL CARE FOR ALL ADLS WITH PILLOWS AND WEDGES USED TO PROVIDE SUPPORT, RELIEVE PRESSURE, ELEVATE ARMS AND FLOAT HEELS. NOTE PULMOCARE INSTILLING PER PEG TUBE AT 55ML/HR 25CC H2O WATER FLUSH Q2H. PLACEMENT VERIIFED WITH AIR BOLUS AND RESIDUAL CHECKED "0" REPLACED AND FLUSHED. BED IS IN LOW POSITION CALL LIGHT IN REACH AND PT ABLE TO MAKE NEEDS KNOWN.
--- NOTE | 2018-02-27 20:30 | NUR ---
NO VISITORS AT BEDSIDE. PT STATES SHE IS TIRED AND WANTS HER NIGHT MEDS. MEDS GIVEN DOCUMENTED ON APR. PERICARE DONE AND F/C DONE AND PARTIAL LINEN CHANGE DONE. PT TOLERATED WELL.
--- NOTE | 2018-02-27 23:00 | NUR ---
SHIFT REASSESSMENT COMPLETED SEE FLOWSHEET. NO SIGNIFICANT CHANGES. PT HAS BEEN SLEEPING TOLERATING TRACH COLLAR WELL.
[2018-02-28] VITALS (12 sets, daily range): BP systolic 115–131; BP diastolic 56–67
--- NOTE | 2018-02-28 01:00 | NUR ---
ND SLEEPING WELL TUBE FEEDING BAG CHANGED
--- NOTE | 2018-02-28 03:00 | NUR ---
SHIFT REASSESSMENT COMPLETED SEE FLOWSHEET. PT INCONTINENT OF MED SOFT BROWN STOOL. COMPLETE BATH DONE WITH ALL LINENS CHANGED. PT TOLERATED WELL.
--- NOTE | 2018-02-28 05:00 | NUR ---
PT RESTING VSS
[2018-02-28 06:32] LABS: EOSINOPHILS 6.8 % (0-7); HEMATOCRIT 34.1 % (36.0-48.0); HEMOGLOBIN 10.2 g/dL (12-16); IMMATURE GRANULOCYTES 0.3 % (0-5); LYMPHOCYTES 23.3 % (15-50); MCH 26.3 pg (26.0-34.0); MCHC 29.9 g/dL (31.0-37.0); MCV 87.9 fL (80.0-100.0); MEAN PLATELET VOLUME 9.8 fL (7.4-10.4); MONOCYTES 6.3 % (2-11); NEUTROPHILS 62.3 % (40-80); PLATELET COUNT 520 10x3/uL (130-400); RBC 3.88 10x6/uL (4.00-5.40); RDW 19.5 % (11.5-14.5)
[2018-02-28 06:33] LABS: WBC 14.5 10x3/uL (4.8-10.8)
[2018-02-28 07:08] LABS: CALC OSMOLALITY 289 mosm/kg (275-300); CALCIUM 8.3 mg/dL (8.5-10.1); CARBON DIOXIDE 31.6 mmol/L (21.0-32.0); CHLORIDE - SERUM 106 mmol/L (98-107); CREATININE - SERUM 0.4 mg/dL (0.6-1.3); GLUCOSE 121 mg/dL (74-106); MAGNESIUM - SERUM 1.9 mg/dL (1.8-2.4); SODIUM 146 mmol/L (136-145); UREA NITROGEN 8 mg/dL (7-18); eGFR NON AFRICAN AMERICAN > 90 mL/min (90-120)
--- NOTE | 2018-02-28 10:01 | NUR ---
Nutrition follow-up: Speech clear pt for po diet; mech soft with thin liquids Pulmocare infusing @ 55 ml/hr labs reviewed Wt: 283# +BM Diet ordered and TF rate decreased to 40 ml/hr. RDN following.
[2018-02-28 10:21] LABS: FUNGUS STAIN Final report (())
--- NOTE | 2018-02-28 12:22 | NUR ---
PT ARRIVED FROM ICU, ALERT AND ORIENTED X3. CALL LIGHT PLACED IN REACH, WILL CONTINUE TO MONITOR AND FOLLOW PLAN OF CARE.
--- NOTE | 2018-02-28 19:15 | NUR ---
INITIAL ROUNDS COMPLETED - A/0 X4, TRACH DRESSING C/D/I, DENIES NEED FOR SUCTION AT THIS TIME. DENIES BATHROOM NEEDS. DOWNS DRAINING CLEAR YELLOW URINE. NO PAIN OR DISCOMFORT NOTED AT THIS TIME. NO FURTHER NEEDS NOTED. RR EVEN AND UL, NO S/S OF DISTRESS. CL IN REACH, SR UP X2. WILL CONTINUE TO ASSESS AND FOLLOW POC.
--- NOTE | 2018-02-28 23:00 | NUR ---
SUCTIONED PT WITH 14 KAZAKH SUCTION TUBE WITH CRISELDA FROM RESPIRATORY. PLACED PT'S PASSY-DAJUAN IN A CUP AT BEDSIDE PER REQUEST. SP02 96%, O2 MASK PLACE PROPERLY OVER TRACH COLLAR. WILL CONTINUE TO ASSESS. CL IN REACH, SR UP X2, BED IN LOWEST POSITION.
[2018-03-01] VITALS: BP 141/60
--- NOTE | 2018-03-01 03:24 | NUR ---
PT RESTING IN BED WITH EYES CLOSED. RR EVEN AND UL, NO S/S OF DISTRESS. NO NEEDS NOTED AT THIS TIME. CL IN REACH, SR UPX2, BED IN LOWEST POSITION. DROPLET PRECAUTIONS IN EFFECT.
[2018-03-01 04:00] VITALS: BP 129/63
[2018-03-01 06:52] LABS: CALC OSMOLALITY 281 mosm/kg (275-300); CALCIUM 8.8 mg/dL (8.5-10.1); CARBON DIOXIDE 33.2 mmol/L (21.0-32.0); CHLORIDE - SERUM 102 mmol/L (98-107); CREATININE - SERUM 0.5 mg/dL (0.6-1.3); GLUCOSE 118 mg/dL (74-106); MAGNESIUM - SERUM 1.7 mg/dL (1.8-2.4); POTASSIUM - SERUM 4.2 mmol/L (3.5-5.1); SODIUM 142 mmol/L (136-145); UREA NITROGEN 7 mg/dL (7-18); eGFR NON AFRICAN AMERICAN > 90 mL/min (90-120)
[2018-03-01 06:53] LABS: BASOPHILS 1.8 % (0-2); EOSINOPHILS 9.3 % (0-7); HEMATOCRIT 36.4 % (36.0-48.0); HEMOGLOBIN 10.8 g/dL (12-16); IMMATURE GRANULOCYTES 0.2 % (0-5); LYMPHOCYTES 27.6 % (15-50); MCH 26.4 pg (26.0-34.0); MCHC 29.7 g/dL (31.0-37.0); MEAN PLATELET VOLUME 10.1 fL (7.4-10.4); MONOCYTES 6.9 % (2-11); NEUTROPHILS 54.2 % (40-80); PLATELET COUNT 580 10x3/uL (130-400); RBC 4.09 10x6/uL (4.00-5.40); RDW 19.4 % (11.5-14.5); WBC 11.3 10x3/uL (4.8-10.8)
[2018-03-01 07:57] VITALS: BP 115/66
--- NOTE | 2018-03-01 08:28 | NUR ---
SPOKE WITH DWAIN THE SUPPORT MANAGER AND SHE STATES PT NO LONGER NEEDS TUBE FEEDINGS.
--- NOTE | 2018-03-01 08:55 | MORECARE ---
CASE MANAGEMENT DISCHARGE SUMMARY PATIENT: CATERINA STEWART UNIT: [id number] ADM DATE: 02/08/18 AGE: 47 : 66 SEX: F ROOM/BED: D.4973 AUTHOR: RACHELLEDOC PHYSICIAN: REFERRING PHYSICIAN: PERCY DONOVAN MD DATE OF SERVICE: 03/01/18 Discharge Plan Patient Name: CATERINA STEWART Facility: [facility]:[place] : 1970 Planned Disposition: Nursing Facility [facility] Anticipated Discharge Date: Discharge Date: Expected LOS: Initial Reviewer: [email or web address] Initial Review Date: 02/09/2018 Generated: 03/01/18 9:55 am Comments DCP- Discharge Planning Updated by [email or web address]: Kathia Wright on 02/09/18 1:[address] Patient Name: CATERINA STEWART Admission Status: ER Accout number: [id number] Admission Date: 02-08-2018 : 1970 Admission Diagnosis: Attending: PERCY DONOVAN Current LOS: 1 Anticipated DC Date: Planned Disposition: Hospice Medical Facility Primary Insurance: [facility] [place] or PPO Discharge Planning Comments: CM MET WITH PATIENT ABOUT DC PLANNING/NEEDS. STATES SHE IS CURRENTLY AT [facility] ON HOSPICE. CM WILL CALL AND VERIFY INFORMATION. PATIENT IS HERE FOR PNEUMONIA. PATIENT STATES NO NEEDS AT TIME OF DC AND THAT HER PLAN IS TO GO BACK TO [facility] BY AMBULANCE. CM WILL FOLLOW AND ASSIST NEEDED WITH DC PLANNING/NEEDS. Sister Superior: Kathia Wright Appended by Kathia Wright on 02/09/2018 14:26 SUPERVISOR BEET END: SPOKE WITH GÉNESIS AT [facility] AT [facility] AND HE STATED THEY WILL PICK HER BACK UP WHEN DISCHARGED. CM OR NURSE TO LET THEM KNOW WHEN PATIENT IS DC'D. CALL GÉNESIS AT [phone] WHEN PATIENT IS BEING DC'D FROM HOSPITAL. DCPIA - Discharge Planning Initial Assessment Updated by [id number]: Kathia Wright on 02/09/18 11:19 am * Is the patient Alert and Oriented? Yes * PCP VENUS * Pharmacy [facility]ROUGH [facility] * Preadmission Environment Hospice * Facility Name [facility] * ADLs Total Dependent * Equipment Hospital Bed Oxygen Trach Care Supplies Wheelchair * List name and contact numbers for known caregivers / representatives who currently or will assist patient after discharge: RICHIE, DAUGHTER, * Community resources currently utilized Other * Please name any agencies selected above. [facility] * Additional services required to return to the preadmission environment? No * Can the patient safely return to the preadmission environment? Yes * Has this patient been hospitalized within the prior 30 days at any hospital? No External Providers [facility] Next Contact Date: 03/01/2018 Service Request Date: Service Type: Resolution: Reviewer: Comments: External Provider: [facility] Next Contact Date: 03/01/2018 Service Request Date: Service Type: Resolution: Reviewer: Comments: Vic DP export: 02/09/18 1:34 pm Patient Name: CATERINA STEWART Page 51989 at 0855 All edits/amendments must be made on the electronic document DICTATION DATE: 03/01/18853 FLY WINDER: KOBE 03/01/1854 RPT#: [id number] DC DATE: STATUS: ADM IN [facility] [address] [place] [address] END OF REPORT
--- NOTE | 2018-03-01 09:15 | MORECARE ---
CASE MANAGEMENT DISCHARGE SUMMARY PATIENT: CATERINA STEWART UNIT: [id number] ADM DATE: 02/08/18 AGE: 47 : 66 SEX: F ROOM/BED: D.1305 AUTHOR: LEONORA BUSH PHYSICIAN: REFERRING PHYSICIAN: PERCY DONOVAN MD DATE OF SERVICE: 03/01/18 Discharge Plan Patient Name: CATERINA STEWART Facility: [facility] : 1970 Planned Disposition: Nursing Facility [facility] Cert Anticipated Discharge Date: Discharge Date: Expected LOS: Initial Reviewer: [email or web address] Initial Review Date: 02/09/2018 Generated: 03/01/18 10:15 am Comments DCP- Discharge Planning Updated by [email or web address]: Tommy Huang on 03/01/18 8:[address] Patient Name: CATERINA STEWART Encounter No: [id number] : 1970 Primary Insurance: [facility] MEDICARE HMO or PPO Anticipated DC Date: Planned Disposition: Nursing Facility [facility] Cert External Planned Provider: [facility], BUSINESS AREA MANAGER CARE MEDICAID BED DCP follow-up note: CM REVIEWED CHART, NOTES INDICATE PT IS FROM [facility] WITH [facility] WITH PLANS TO TURN TO [facility] WITH HOSPICE SERVICES. CM FAXED UPDATE TO [facility] VIA [employer] AT [phone]. CM FAXED UPDATE TO [facility] AT [phone]. FOR DISCHARGE, NOTIFY [facility] AT [phone], FAX DISCHARGE INFORMATION TO [facility] AT [phone]. [facility] TO ADMIT PT AT [facility] FOR HOSPICE. FOR DISCHARGE TO [facility], FAX DISCHARGE INFORMATION TO [facility] AT [phone]; NURSE REPORT TO BE CALLED TO [facility] AT [phone]. PT WILL TRANSPORT VIA AMBULANCE. TAMIKO Patterson DCP- Discharge Planning Updated by [email or web address]: Kathia Wright on 02/09/18 1:[address] Patient Name: CATERINA STEWART Admission Status: ER Accout number: [id number] Admission Date: 02-08-2018 : 1970 Admission Diagnosis: Attending: PERCY DONOVAN Current LOS: 1 Anticipated DC Date: Planned Disposition: Hospice Medical Facility Primary Insurance: [facility] MEDICARE HMO or PPO Discharge Planning Comments: CM MET WITH PATIENT ABOUT DC PLANNING/NEEDS. STATES SHE IS CURRENTLY AT [facility] ON HOS[facility]. CM WILL CALL AND VERIFY INFORMATION. PATIENT IS HERE FOR PNEUMONIA. PATIENT STATES NO NEEDS AT TIME OF DC AND THAT HER PLAN IS TO GO BACK TO [facility] BY AMBULANCE. CM WILL FOLLOW AND ASSIST NEEDED WITH DC PLANNING/NEEDS. Mini Bar Attendant: Kathia Wright Appended by Kathia Wright on 02/09/2018 14:26 JUNIOR NET DEVELOPER: SPOKE WITH GÉNESIS AT [facility] AT [facility] AND HE STATED THEY WILL PICK HER BACK UP WHEN DISCHARGED. CM OR NURSE TO LET THEM KNOW WHEN PATIENT IS DC'D. CALL GÉNESIS AT [phone] WHEN PATIENT IS BEING DC'D FROM HOSPITAL. DCPIA - Discharge Planning Initial Assessment Updated by [email or web address]: Kathia Wright on 02/09/18 11:19 am * Is the patient Alert and Oriented? Yes * PCP VENUS * Pharmacy [facility]OUGH [facility] * Preadmission Environment Hospice * Facility Name [facility] * ADLs Total Dependent * Equipment Hospital Bed Oxygen Trach Care Supplies Wheelchair * List name and contact numbers for known caregivers / representatives who currently or will assist patient after discharge: RICHIE, DAUGHTER, * Community resources currently utilized Other * Please name any agencies selected above. [facility] * Additional services required to return to the preadmission environment? No * Can the patient safely return to the preadmission environment? Yes * Has this patient been hospitalized within the prior 30 days at any hospital? No Last DP export: 03/01/18 7:55 a Patient Name: CATERINA STEWART Page 10948 at 0915 All edits/amendments must be made on the electronic document DICTATION DATE: 03/01/18913 WATER VALVE REPAIRER: KOBE 03/01/18913 RPT#: [id number] DC DATE: STATUS: ADM IN [facility] [address] [place] [address] END OF REPORT
--- NOTE | 2018-03-01 09:43 | NUR ---
RESTS IN ISOLATION ROOM. RESP UL ON . NURSE AT BS. CALL LIGHT IN REACH.
--- NOTE | 2018-03-01 11:44 | NUR ---
PT RETURNED FROM [facility]. RADIOLOGY NURSE STATES THEY GOT 2500CC OFF AND SHE GAVE 0.5 OF VERSED, 25 OF FENTANYL, AND 25MG OF ALBUMIN. ALBUMIN INFUSING BY GRAVITY NOW THROUGH LEFT FA 20G IV. PT IS ALERT AND ORIENTED AND VS STABLE. RIGHT SIDE OF ABDOMEN DRESSING C/D/I.
[2018-03-01 12:42] VITALS: BP 120/56
[2018-03-01 15:30] VITALS: BP 118/60
[2018-03-01 20:00] VITALS: BP 118/55
[2018-03-02 07:51] LABS: CALC OSMOLALITY 282 mosm/kg (275-300); CALCIUM 8.6 mg/dL (8.5-10.1); CARBON DIOXIDE 33.9 mmol/L (21.0-32.0); CHLORIDE - SERUM 102 mmol/L (98-107); CREATININE - SERUM 0.4 mg/dL (0.6-1.3); GLUCOSE 100 mg/dL (74-106); MAGNESIUM - SERUM 1.7 mg/dL (1.8-2.4); POTASSIUM - SERUM 4.1 mmol/L (3.5-5.1); SODIUM 143 mmol/L (136-145); UREA NITROGEN 8 mg/dL (7-18); eGFR NON AFRICAN AMERICAN > 90 mL/min (90-120)
[2018-03-02 07:52] LABS: BASOPHILS 1.8 % (0-2); EOSINOPHILS 9.4 % (0-7); HEMATOCRIT 37.7 % (36.0-48.0); HEMOGLOBIN 11.4 g/dL (12-16); IMMATURE GRANULOCYTES 0.1 % (0-5); MCH 26.5 pg (26.0-34.0); MCHC 30.2 g/dL (31.0-37.0); MCV 87.5 fL (80.0-100.0); MEAN PLATELET VOLUME 9.8 fL (7.4-10.4); MONOCYTES 7.9 % (2-11); NEUTROPHILS 52.8 % (40-80); PLATELET COUNT 586 10x3/uL (130-400); RBC 4.31 10x6/uL (4.00-5.40); RDW 18.7 % (11.5-14.5)
--- NOTE | 2018-03-02 08:20 | NUR ---
RESPIRATORY THERAPIST IN PT'S ROOM SUCTIONING PT'S TRACH.
[2018-03-02 09:12] VITALS: BP 114/61
--- NOTE | 2018-03-02 09:46 | NUR ---
RESTS IN ISOLATION ROOM. RESP UL ON . FAMILY AT BS. WILL CONT. PLAN OF CARE.
--- NOTE | 2018-03-02 10:05 | NUR ---
Nutrition follow-up: Pt out of ICU TF stopped; pt receiving a regular mechanical soft diet with thin liquids Boost TID PO intake ~70% average of meals Labs reviewed +BM Wt: 283# RDN following.
[2018-03-02 14:37] VITALS: BP 93/42
--- NOTE | 2018-03-02 19:15 | NUR ---
INITIAL ASSESSMENT COMPLETED - PT A/0X4, TRACH C/D/I, DENIES NEED FOR SUCTION, VSS. 02 AT 40% VIA NONREBREATHER MASK TO TRACH. C/O PAIN 09/15, ADMINISTERED PO MEDS INCLUDING PRESCRIBED ANALGESIC. DOWNS DRAINING PALE YELLOW URINE WITH SOME SEDIMENT NOTED. PEG TUBE IN PLACE, SITE C/D/I. NO HYGIENE NEEDS NOTED AT THIS TIME, WCTM AND FOLLOW POC. CL IN REACH, SR UP X2, BED IN LOWEST POSITION.
[2018-03-02 20:31] VITALS: BP 113/57
[2018-03-02 23:50] VITALS: BP 114/55
[2018-03-03 03:50] VITALS: BP 136/67
[2018-03-03 05:13] LABS: BASOPHILS 2.3 % (0-2); EOSINOPHILS 8.4 % (0-7); HEMATOCRIT 37.9 % (36.0-48.0); HEMOGLOBIN 11.5 g/dL (12-16); IMMATURE GRANULOCYTES 0.2 % (0-5); LYMPHOCYTES 32.9 % (15-50); MCH 26.4 pg (26.0-34.0); MCHC 30.3 g/dL (31.0-37.0); MCV 87.1 fL (80.0-100.0); MEAN PLATELET VOLUME 9.7 fL (7.4-10.4); MONOCYTES 7.7 % (2-11); NEUTROPHILS 48.5 % (40-80); PLATELET COUNT 600 10x3/uL (130-400); RBC 4.35 10x6/uL (4.00-5.40); RDW 18.6 % (11.5-14.5); WBC 9.8 10x3/uL (4.8-10.8)
[2018-03-03 05:48] LABS: CALC OSMOLALITY 278 mosm/kg (275-300); CALCIUM 8.9 mg/dL (8.5-10.1); CARBON DIOXIDE 32.6 mmol/L (21.0-32.0); CHLORIDE - SERUM 101 mmol/L (98-107); CREATININE - SERUM 0.4 mg/dL (0.6-1.3); GLUCOSE 117 mg/dL (74-106); MAGNESIUM - SERUM 1.7 mg/dL (1.8-2.4); POTASSIUM - SERUM 3.9 mmol/L (3.5-5.1); SODIUM 140 mmol/L (136-145); UREA NITROGEN 9 mg/dL (7-18); eGFR NON AFRICAN AMERICAN > 90 mL/min (90-120)
--- NOTE | 2018-03-03 09:37 | NUR ---
AM MEDS GIVEN AT THIS TIME. PAIN LEVEL OF 10/10. PT DID NOT EAT BREAKFAST, STATED THAS SHE WAS NOT HUNGRY. HELPED PT FILL OUT MENU. PT A/O X4, A LITTLE SOB ON 40% O2, VIA TRACH. RT HAND IV SL. PT ON FIRST STEP OVERLAY. SCDS ON BILAT. PT DENIES ANY OTHER NEEDS AT THIS TIME. CALL LIGHT IN REACH, BEDSIDE RAILS X2, NAD NOTED, WILL CONTINUE PLAN OF CARE.
[2018-03-03 10:50] VITALS: BP 118/66
--- NOTE | 2018-03-03 12:45 | NUR ---
REPOSITIONED PT IN BED, PT DENIES ANY OTHER NEEDS AT THIS TIME. CALL LIGHT IN REACH,NAD NOTED, WILL CONTINUE TO MONITOR.
--- NOTE | 2018-03-03 15:20 | NUR ---
MS CAMPOS GIVEN FOR PAIN LEVEL OF 7/10. ALSO REPOSITIONED PT LEGS ON THE BED. PT DENIES ANY OTHER NEEDS AT THIS TIME. CALL LIGHT IN REACH,NAD NOTED.
--- NOTE | 2018-03-03 19:25 | NUR ---
ALERT/AWAKE ORIENTED X3. 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 02 MASK AT 40% TO TRACH COLLAR. LEFT IJ TL DRSG C/D/I. PEG TUBE NOTED. DOWNS INTACT WITH LT YELLOW URINE DRAINING TO GRAVITY. RIGHT ARM IS VERY STIFF AND RIGHT HAND CONTRACTED. LEGS ELEVATED ON PILLOW. ON 1ST STEP OVERLAY MATTRESS. HAS CALL LIGHT IN REACH.
--- NOTE | 2018-03-03 20:10 | NUR ---
ADMIN SCHED MEDS WITH SIPS OF WATER SWALLOWING WITHOUT DIFFICULTY.
[2018-03-03 21:32] VITALS: BP 107/57
--- NOTE | 2018-03-03 23:15 | NUR ---
ADMIN MORPHINE 15MG PO PER REQUEST FOR C/O NECK/BACK PAIN LEVEL 8. ASSISTED DISPENSING OPTICIAN WITH CLEANING FOR INCONTINENCE OF STOOL.
[2018-03-03 23:55] VITALS: BP 111/55
[2018-03-04 03:55] VITALS: BP 113/56
--- NOTE | 2018-03-04 04:20 | NUR ---
ARMANDO BLOOD FROM FOR LABS ORDERED. DENIES ANY NEEDS.
[2018-03-04 05:11] LABS: BASOPHILS 1.1 % (0-2); EOSINOPHILS 11.8 % (0-7); HEMATOCRIT 37.6 % (36.0-48.0); HEMOGLOBIN 11.4 g/dL (12-16); IMMATURE GRANULOCYTES 0.3 % (0-5); LYMPHOCYTES 29.8 % (15-50); MCH 26.8 pg (26.0-34.0); MCHC 30.3 g/dL (31.0-37.0); MCV 88.3 fL (80.0-100.0); MEAN PLATELET VOLUME 9.7 fL (7.4-10.4); MONOCYTES 8.3 % (2-11); NEUTROPHILS 48.7 % (40-80); PLATELET COUNT 583 10x3/uL (130-400); RBC 4.26 10x6/uL (4.00-5.40); RDW 18.7 % (11.5-14.5)
[2018-03-04 05:23] LABS: CALC OSMOLALITY 277 mosm/kg (275-300); CALCIUM 8.5 mg/dL (8.5-10.1); CARBON DIOXIDE 32.3 mmol/L (21.0-32.0); CHLORIDE - SERUM 101 mmol/L (98-107); CREATININE - SERUM 0.4 mg/dL (0.6-1.3); GLUCOSE 115 mg/dL (74-106); MAGNESIUM - SERUM 1.7 mg/dL (1.8-2.4); SODIUM 140 mmol/L (136-145); UREA NITROGEN 7 mg/dL (7-18); eGFR NON AFRICAN AMERICAN > 90 mL/min (90-120)
--- NOTE | 2018-03-04 06:00 | NUR ---
ADMIN SCHED MEDS WITH SIPS OF WATER/MIRALAX. NO OTHER NEEDS VOICED.
--- NOTE | 2018-03-04 09:02 | NUR ---
AM MEDS GIVEN AT THIS TIME. SET PT UP TO EAT BREAKFAST AND HELPED HER FILL OUT MENU. PT A/O X4, LT IJ TRIPLE LUMEN SL. DRESSING CDI WITH BIOPATCH IN PLACE. PT ON FIRST STEP OVERLAY, DENIES ANY NEEDS AT THIS TIME. CALL LIGHT IN REACH,NAD NOTED, WILL CONTINUE TO MONITOR.
[2018-03-04 09:40] VITALS: BP 129/79
[2018-03-04 14:30] VITALS: BP 101/58
[2018-03-04 17:53] VITALS: BP 116/57
--- NOTE | 2018-03-04 19:15 | NUR ---
RECEIVED REPORT, ASSUMED CARE OF PATIENT. ALERT/AWAKE REQUESTED DINNER TRAY REMOVED. ANGLE SHEAR OPERATOR TAKING VS. INITIAL ASSESSMENTS DONE PER NSG FLOWCHART. NO OTHER NEEDS VOICED. HAS CALL LIGHT IN REACH.
[2018-03-04 20:00] VITALS: BP 130/69
--- NOTE | 2018-03-04 22:54 | NUR ---
SUCTIONED PER REQUEST. REQUESTED LIGHTS OFF TO SLEEP.
[2018-03-05 01:00] VITALS: BP 129/60
[2018-03-05 04:00] VITALS: BP 121/54
--- NOTE | 2018-03-05 05:50 | NUR ---
ADMIN MORPHINE 15MG PO PER REQUEST FOR C/O NECK/BACK PAIN LEVEL 8 ON NUMBER SCALE. NO OTHER NEEDS VOICED.
--- NOTE | 2018-03-05 07:30 | NUR ---
RECEIVED A/A/OX4. DENIES ANY PAIN AT THIS TIME. NO REQUESTS VOICED. BED IN LOWEST POSITION WITH SIDERAILS UP X 2 AND CALL LIGHT IN REACH. ASSESSMENT COMPLETED AND WILL CPOC.
[2018-03-05 08:37] VITALS: BP 87/40
[2018-03-05 11:39] VITALS: BP 88/56
--- NOTE | 2018-03-05 12:51 | NUR ---
RESTS IN ISOLATION ROOM. RESP UL ON . CALL LIGHT IN REACH. WILL MONITOR NEEDS.
--- NOTE | 2018-03-05 13:41 | NUR ---
Nutrition follow-up: Diet: regualr mechanical soft PO Intake ~53% of last 9 meals TF off; has been off since 03/01/18 No new wt Labs reviewed +BM Pt in isolation at this time for MRSA RDN following.
[2018-03-05 15:44] VITALS: BP 137/73
--- NOTE | 2018-03-05 16:46 | MORECARE ---
CASE MANAGEMENT DISCHARGE SUMMARY PATIENT: CATERINA STEWART UNIT: [id number] ADM DATE: 02/08/18 AGE: 47 : 66 SEX: F ROOM/BED: D.0043 AUTHOR: RACHELLE,DOC PHYSICIAN: REFERRING PHYSICIAN: PERCY DONOVAN MD DATE OF SERVICE: 03/05/18 Discharge Plan Patient Name: CATERINA STEWART Facility: [facility] : 1970 Planned Disposition: Nursing Facility [facility] Cert Anticipated Discharge Date: Discharge Date: Expected LOS: Initial Reviewer: [email or web address] Initial Review Date: 02/09/2018 Generated: 03/05/18 5:46 pm Comments DCP- Discharge Planning Updated by [email or web address]: Tommy Huang on 03/05/18 3:[address] Patient Name: CATERINA STEWART Encounter No: [id number] : 1970 [place] [facility] [place] Anticipated DC Date: Planned Disposition: Nursing Facility [facility] Cert External Planned Provider: [facility]M [facility] MEDICAID BED DCP follow-up note: CM FAXED UPDATE TO THE [facility] VIA [employer] AT [phone].. FOR DISCHARGE, NOTIFY [facility] AT [phone], FAX DISCHARGE INFORMATION TO [facility] AT [phone]. [facility] TO ADMIT PT AT THE [facility] FOR HOSPICE. FOR DISCHARGE TO THE [facility], FAX DISCHARGE INFORMATION TO THE [facility] AT [phone]; NURSE REPORT TO BE CALLED TO THE [facility] AT [phone]. PT WILL TRANSPORT VIA AMBULANCE. Tommy Huang, CASE MANAGEMENT. DCP- Discharge Planning Updated by [email or web address]: Tommy Huang on 03/01/18 8:[address] Patient Name: CATERINA STEWART Encounter No: [id number] : 1970 [place] [facility] [place] Anticipated DC Date: Planned Disposition: Nursing Facility [facility] Cert External Planned Provider: [facility], LONG TERM CARE MEDICAID BED DCP follow-up note: CM REVIEWED CHART, NOTES INDICATE PT IS FROM [facility] WITH [facility] WITH PLANS TO TURN TO THE [facility] WITH HOSPICE SERVICES. CM FAXED UPDATE TO THE [facility] VIA [employer] AT [phone]. CM FAXED UPDATE TO [facility] AT [phone]. FOR DISCHARGE, NOTIFY [facility] AT [phone], FAX DISCHARGE INFORMATION TO [facility] AT [phone]. [facility] TO ADMIT PT AT THE [facility] FOR HOSPICE. FOR DISCHARGE TO THE [facility], FAX DISCHARGE INFORMATION TO THE [facility] AT [phone]; NURSE REPORT TO BE CALLED TO THE [facility] AT [phone]. PT WILL TRANSPORT VIA AMBULANCE. Tommy Huang, CASE MANAGEMENT DCP- Discharge Planning Updated by [id number]: Kathia Wright on 02/09/18 1:[address] Patient Name: CATERINA STEWART Admission Status: ER Accout number: [id number] Admission Date: 02-08-2018 : 1970 Admission Diagnosis: Attending: PERCY DONOVAN Current LOS: 1 Anticipated DC Date: Planned Disposition: Hospice Medical Facility [place] [facility] [place] Discharge Planning Comments: CM MET WITH PATIENT ABOUT DC PLANNING/NEEDS. STATES SHE IS CURRENTLY AT THE [facility] ON HOSPICE. CM WILL CALL AND VERIFY INFORMATION. PATIENT IS HERE FOR PNEUMONIA. PATIENT STATES NO NEEDS AT TIME OF DC AND THAT HER PLAN IS TO GO BACK TO THE [facility] BY AMBULANCE. CM WILL FOLLOW AND ASSIST NEEDED WITH DC PLANNING/NEEDS. Pulp House Supervisor: Kathia Wright Appended by Kathia Wright on 02/09/2018 14:26 VETERINARIAN: SPOKE WITH GÉNESIS AT [facility] AT THE [facility] AND HE STATED THEY WILL PICK HER BACK UP WHEN DISCHARGED. CM OR NURSE TO LET THEM KNOW WHEN PATIENT IS DC'D. CALL GÉNESIS AT [phone] WHEN PATIENT IS BEING DC'D FROM HOSPITAL. DCPIA - Discharge Planning Initial Assessment Updated by [id number]: Kathia Wright on 02/09/18 11:19 am * Is the patient Alert and Oriented? Yes * PCP V[facility]US * Pharmacy THROUGH [facility] * Preadmission Environment Hospice * Facility Name [facility] * ADLs Total Dependent * Equipment Hospital Bed Oxygen Trach Care Supplies Wheelchair * List name and contact numbers for known caregivers / representatives who currently or will assist patient after discharge: RICHIE, DAUGHTER, * Community resources currently utilized Other * Please name any agencies selected above. [facility] * Additional services required to return to the preadmission environment? No * Can the patient safely return to the preadmission environment? Yes * Has this patient been hospitalized within the prior 30 days at any hospital? No Last DP export: 03/01/18 8:15 a Patient Name: CATERINA STEWART Page 49368 at 1646 All edits/amendments must be made on the electronic document DICTATION DATE: 03/05/181645 [facility]: KOBE 03/05/181645 RPT#: [id number] DC DATE: STATUS: ADM IN [facility] [address] [place] [address] END OF REPORT
--- NOTE | 2018-03-05 19:15 | NUR ---
AWAKE WATCHING TV. 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 HAS TRACH COLLAR WITH 02 AT 40%. L IJ TL INTACT SL. ABD PEG TUBE DRSG C/D/I. HAS CALL LIGHT IN REACH FOR ANY NEEDS.
[2018-03-05 20:00] VITALS: BP 138/74
--- NOTE | 2018-03-05 21:00 | NUR ---
ADMIN SCHED PO MEDS. LANDSCAPE ARCHITECT AND PLANNER ASSISTED WITH REPOSITIONING. REQUESTED LIGHTS OFF TO SLEEP.
--- NOTE | 2018-03-06 04:00 | NUR ---
ANESTHESIA ASSOCIATE'S GIVING BATH. STATED URINE LEAKING FROM DOWNS. REMOVED THE 10CC FROM THE BULB TO REPOSITION AND REPLACED THE 10CC. I BELIEVE SHE MAY HAD BEEN LAYING ON THE DOWNS TUBING AND URINE COULD NOT DRAIN. WILL REASSESS BEFORE END OF SHIFT.
[2018-03-06 04:55] VITALS: BP 118/69
--- NOTE | 2018-03-06 07:30 | NUR ---
RECEIVED A/A/OX4. NO REQUESTS OR COMPLAINTS OF PAIN AT THIS TIME. POSITIONED ON BACK WITH HEELS FLOATED. REMAINS ON CONTACT ISOLATION AND PRECAUTIONS BEING CARRIED OUT. ASSESSMENT COMPLETED AND NO NEW PROBLEMS NOTED AT PRESENT TIME. BED IN LOWEST POSITION WITH SIDERAILS UP X 2 AND CALL LIGHT IN REACH. 1 STEP OVERLAY ON BED. WILL CPOC
[2018-03-06 08:02] VITALS: BP 108/51
--- NOTE | 2018-03-06 09:55 | NUR ---
RESTS IN ISOLATION ROOM. RESP UL ON . NURSE AT ASSISTING WITH NEEDS. WILL CONT. PLAN OF CARE.
[2018-03-06 12:20] VITALS: BP 146/70
[2018-03-06 15:18] VITALS: BP 142/74
[2018-03-06 20:00] VITALS: BP 140/75
--- NOTE | 2018-03-06 20:00 | NUR ---
PATIENT AWAKE,ALERT.NO DISTRESS NOTED. O2 @ 40 % TRACH COLLAR ON. RESP UNLABORED. PEG TUBE PATENT. CLAMPED AT THIS TIME. TAKES MEDS WHOLE WITHOUT DIFFICULTY. LEFT IJ INTACT WITHOUT REDENSS OR EDEMA NOTED.RIGHT ARM IS FLACCID.LIMITED ROM WITH LEFT ARM. DOWNS LEAKING. CHANGED USING STERILE TECHNIQUE. TOLETATED WELL.TUNED AND POSITIONED WITH LINENS CHANGE. CL IN REACH
[2018-03-07] VITALS: BP 155/71
--- NOTE | 2018-03-07 02:00 | NUR ---
PT STATES SHE IS HAVING NECK PAIN AND REQUESTS PAIN MED. PER [facility]AR MORPHINE 15MG ONE TABLET PO WAS GIVEN. CALL LIGHT IN REACH. SIDE RAILS UP X 2. WILL CONTINUE TO MONITOR PT AND FOLLOW PALN OF CARE.
[2018-03-07 04:00] VITALS: BP 130/64
[2018-03-07 04:53] LABS: HEMATOCRIT 37.2 % (36.0-48.0); HEMOGLOBIN 11.3 g/dL (12-16); MCH 26.4 pg (26.0-34.0); MCHC 30.4 g/dL (31.0-37.0); MCV 86.9 fL (80.0-100.0); MEAN PLATELET VOLUME 9.6 fL (7.4-10.4); PLATELET COUNT 545 10x3/uL (130-400); RBC 4.28 10x6/uL (4.00-5.40); RDW 18.5 % (11.5-14.5); WBC 22.7 10x3/uL (4.8-10.8)
[2018-03-07 05:12] LABS: EOSINOPHILS 3 % (0-7); LYMPHOCYTES 16 % (15-50); MONOCYTES 5 % (2-11); NEUTROPHILS 74 % (40-80); PLATELET ESTIMATE INCREASED
[2018-03-07 05:13] LABS: CALC OSMOLALITY 276 mosm/kg (275-300); CALCIUM 8.9 mg/dL (8.5-10.1); CARBON DIOXIDE 28.4 mmol/L (21.0-32.0); CHLORIDE - SERUM 102 mmol/L (98-107); CREATININE - SERUM 0.5 mg/dL (0.6-1.3); GLUCOSE 124 mg/dL (74-106); PLATELET MORPHOLOGY NORMAL PLT MORPH; POTASSIUM - SERUM 4.3 mmol/L (3.5-5.1); SODIUM 139 mmol/L (136-145); UREA NITROGEN 7 mg/dL (7-18); eGFR NON AFRICAN AMERICAN > 90 mL/min (90-120)
--- NOTE | 2018-03-07 08:07 | NUR ---
REC'D IN BED AWAKE AND ALERT. RESP EVEN AND UNLABORED WITH NO DISTRESS NOTED. NO C/O NOTED OR VOICED. F/C INTACT AND DRAINING TO GRAVITY. SUCTION EVERY SHIFT AND PRN. PEG TUBE REMAIN CLAMPED AT THIS TIME. ASSESSMENT COMPLETED. C/L IN REACH AT BEDSIDE.
[2018-03-07 08:58] VITALS: BP 149/72
--- NOTE | 2018-03-07 10:09 | NUR ---
PT RESTING QUIETLY WITHOUT ANY DISTRESS. RESP WITH EASE. WILL CONTINUE WITH POC.
--- NOTE | 2018-03-07 10:25 | MORECARE ---
CASE MANAGEMENT DISCHARGE SUMMARY PATIENT: CATERINA STEWART UNIT: [id number] ADM DATE: 02/08/18 AGE: 47 : [birth year] SEX: F ROOM/BED: D.6134 AUTHOR: RACHELLE,DOC PHYSICIAN: REFERRING PHYSICIAN: PERCY DONOVAN MD DATE OF SERVICE: 03/07/18 Discharge Plan Patient Name: CATERINA STEWART Facility: [facility] : 1970 Planned Disposition: Nursing Facility [facility] Cert Anticipated Discharge Date: Discharge Date: Expected LOS: Initial Reviewer: [id number] Initial Review Date: 02/09/2018 Generated: 03/07/18 11:25 am Comments DCP- Discharge Planning Updated by [id number]: Tommy Huang on 03/07/18 9:[address] Patient Name: CATERINA STEWART Encounter No: [id number] : 1970 [place] [facility] Anticipated DC Date: Planned Disposition: Nursing Facility [facility] Cert External Planned Provider: [facility], LONG TERM CARE MEDICAID BED DCP follow-up note: CM FAXED UPDATE TO [facility] [email or web address] AT [phone].. FOR DISCHARGE, NOTIFY [facility] AT [phone], FAX DISCHARGE INFORMATION TO [facility] AT [phone]. [facility] TO ADMIT PT AT [facility]. FOR DISCHARGE TO [facility]SING [facility] RE[facility], FAX DISCHARGE INFORMATION TO [facility] AT [phone]; NURSE REPORT TO BE CALLED TO THE [facility] AT [phone]. PT WILL TRANSPORT VIA AMBULANCE. Tommy Huang, CASE MANAGEMENT. DCP- Discharge Planning Updated by [id number]: Tommy Huang on 03/05/18 3:[address] Patient Name: CATERINA STEWART Encounter No: [id number] : 1970 Primary Insurance: [facility] Anticipated DC Date: Planned Disposition: Nursing Facility [facility] Cert External Planned Provider: [facility], LONG TERM CARE MEDICAID BED DCP follow-up note: CM FAXED UPDATE TO [facility] [employer] AT [phone].. FOR DISCHARGE, NOTIFY [facility] AT [phone], FAX DISCHARGE INFORMATION TO [facility] AT [phone]. [facility] TO ADMIT PT AT [facility]. FOR DISCHARGE TO [facility]SING [facility], FAX DISCHARGE INFORMATION TO [facility] AT [phone]; NURSE REPORT TO BE CALLED TO [facility] AT [phone]. PT WILL TRANSPORT VIA AMBULANCE. TAMIKO Patterson. DCP- Discharge Planning Updated by [id number]: Tommy Huang on 03/01/18 8:[address] Patient Name: CATERINA STEWART Encounter No: [id number] : 1970 Primary Insurance: [facility] [place]PO Anticipated DC Date: Planned Disposition: Nursing Facility [facility] Cert External Planned Provider: [facility], [facility] CARE MEDICAID BED DCP follow-up note: CM REVIEWED CHART, NOTES INDICATE PT IS FROM [facility] WITH [facility] WITH PLANS TO TURN TO THE [facility] WITH HOSPICE SERVICES. CM FAXED UPDATE TO [facility] [employer] AT [phone]. CM FAXED UPDATE TO [facility] AT [phone]. FOR DISCHARGE, NOTIFY [facility] AT [phone], FAX DISCHARGE INFORMATION TO [facility] AT [phone]. [facility] TO ADMIT PT AT [facility]. FOR DISCHARGE TO [facility] NURSING [facility] RE[facility], FAX DISCHARGE INFORMATION TO [facility] AT [phone]; NURSE REPORT TO BE CALLED TO [facility] AT [phone]. PT WILL TRANSPORT VIA AMBULANCE. TAMIKO Patterson DCP- Discharge Planning Updated by [id number]: Kathia Wright on 02/09/18 1:[address] Patient Name: CATERINA STEWART Admission Status: ER Accout number: [id number] Admission Date: 02-08-2018 : 1970 Admission Diagnosis: Attending: PERCY DONOVAN Current LOS: 1 Anticipated DC Date: Planned Disposition: Hospice Medical Facility Primary Insurance[place] [facility] [place] Discharge Planning Comments: CM MET WITH PATIENT ABOUT DC PLANNING/NEEDS. STATES SHE IS CURRENTLY AT [facility]. CM WILL CALL AND VERIFY INFORMATION. PATIENT IS HERE FOR PNEUMONIA. PATIENT STATES NO NEEDS AT TIME OF DC AND THAT HER PLAN IS TO GO BACK TO [facility] BY AMBULANCE. CM WILL FOLLOW AND ASSIST NEEDED WITH DC PLANNING/NEEDS. Health Science Specialist: Kathia Adriana Appended by Kathia Wright on 02/09/2018 14:26 BUTTON FACING MACHINE OPERATOR: SPOKE WITH GÉNESIS AT [facility] AT THE [facility] AND HE STATED THEY WILL PICK HER BACK UP WHEN DISCHARGED. CM OR NURSE TO LET THEM KNOW WHEN PATIENT IS DC'D. CALL GÉNESIS AT [phone] WHEN PATIENT IS BEING DC'D FROM HOSPITAL. DCPIA - Discharge Planning Initial Assessment Updated by [id number]: Kathia Wright on 02/09/18 11:19 am * Is the patient Alert and Oriented? Yes * PCP [facility] * Pharmacy THROUGH [facility] * Preadmission Environment Hospice * Facility Name [facility] * ADLs Total Dependent * Equipment Hospital Bed Oxygen Trach Care Supplies Wheelchair * List name and contact numbers for known caregivers / representatives who currently or will assist patient after discharge: RICHIE, DAUGHTER, * Community resources currently utilized Other * Please name any agencies selected above. [facility] * Additional services required to return to the preadmission environment? No * Can the patient safely return to the preadmission environment? Yes * Has this patient been hospitalized within the prior 30 days at any hospital? No Last DP export: 03/05/18 3:46 p Patient Name: CATERINA STEWART Page [id number] at 1025 All edits/amendments must be made on the electronic document DICTATION DATE: 03/07/18 1025 INDEPENDENT CONTRACTOR: KOBE 03/07/18 1025 RPT#: [id number] DC DATE: STATUS: ADM IN [facility] [address] [place] [address] END OF REPORT
--- NOTE | 2018-03-07 10:59 | NUR ---
RESTING QUIETLY. RESP WITH EASE. WILL CONTINUE WITH POC
--- NOTE | 2018-03-07 11:03 | NUR ---
DOWNS CARE BEING DONE BY DIRECTOR OF RETENTION. STAT LOCK CHANGED.
[2018-03-07 11:55] VITALS: BP 127/59
[2018-03-07 15:55] VITALS: BP 126/53
--- NOTE | 2018-03-07 16:24 | NUR ---
PT WAS MEDICATED WITH MORPHINE IR PER ORDERS FOR C/O PAIN. C/L IN REACH AT BEDSIDE.
--- NOTE | 2018-03-07 19:45 | NUR ---
RESUMING PT CARE. PT IS ALERT LAYING IN BED WATCHING TV WITH NO C/O AT THIS TIME. BED IN LOW POSITION WITH CALL LIGHT IN REACH. SIDE RAILS UP X 2. WILL CONTINUE TO MONITOR PT AND FOLLOW PLAN OF CARE.
[2018-03-07 20:00] VITALS: BP 129/63
[2018-03-08] VITALS: BP 134/68
[2018-03-08 04:00] VITALS: BP 134/65
--- NOTE | 2018-03-08 06:41 | NUR ---
0605 PT REQUETS PAIN MEDS. PT STATES NECK IS HURTING. 0615 PER APR MORPHINE 15MG TABLET GIVEN PO. CALL LIGHT IN REACH. SIDE RAILS UP X 2. WILL CONTINUE TO MONITOR PT AND FOLLOW PLAN OF CARE.
[2018-03-08 06:49] LABS: BASOPHILS 0.8 % (0-2); HEMATOCRIT 37.5 % (36.0-48.0); HEMOGLOBIN 11.4 g/dL (12-16); IMMATURE GRANULOCYTES 0.4 % (0-5); MCH 26.4 pg (26.0-34.0); MCHC 30.4 g/dL (31.0-37.0); MCV 86.8 fL (80.0-100.0); MEAN PLATELET VOLUME 9.5 fL (7.4-10.4); MONOCYTES 8.7 % (2-11); NEUTROPHILS 58.1 % (40-80); PLATELET COUNT 528 10x3/uL (130-400); RBC 4.32 10x6/uL (4.00-5.40); RDW 18.3 % (11.5-14.5)
[2018-03-08 06:52] LABS: CALC OSMOLALITY 277 mosm/kg (275-300); CALCIUM 8.7 mg/dL (8.5-10.1); CARBON DIOXIDE 28.7 mmol/L (21.0-32.0); CHLORIDE - SERUM 103 mmol/L (98-107); CREATININE - SERUM 0.4 mg/dL (0.6-1.3); GLUCOSE 118 mg/dL (74-106); POTASSIUM - SERUM 3.7 mmol/L (3.5-5.1); SODIUM 140 mmol/L (136-145); UREA NITROGEN 7 mg/dL (7-18); eGFR NON AFRICAN AMERICAN > 90 mL/min (90-120)
[2018-03-08 07:03] LABS: WBC 13.6 10x3/uL (4.8-10.8)
[2018-03-08 08:02] VITALS: BP 134/72
--- NOTE | 2018-03-08 10:00 | NUR ---
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
[2018-03-08 11:25] VITALS: BP 135/72
[2018-03-08 15:32] VITALS: BP 77/44
--- NOTE | 2018-03-08 19:55 | NUR ---
REPOSITION PT. CALL LIGHT IN REACH.
[2018-03-08 20:00] VITALS: BP 141/62
--- NOTE | 2018-03-08 20:12 | NUR ---
PT REST IN BED, DENIES NEEDS THIS TIME.
--- NOTE | 2018-03-08 21:55 | NUR ---
REPOSTION PT, CALL LIGHT IN REACH.
--- NOTE | 2018-03-08 23:20 | NUR ---
PT REST QUIELTY IN BED, CALL LIGHT IN REACH.
[2018-03-09] VITALS: BP 140/66
[2018-03-09 04:00] VITALS: BP 137/80
[2018-03-09 05:26] LABS: BASOPHILS 0.8 % (0-2); EOSINOPHILS 11.1 % (0-7); HEMATOCRIT 37.8 % (36.0-48.0); HEMOGLOBIN 11.6 g/dL (12-16); IMMATURE GRANULOCYTES 0.9 % (0-5); LYMPHOCYTES 21.5 % (15-50); MCH 26.5 pg (26.0-34.0); MCHC 30.7 g/dL (31.0-37.0); MCV 86.5 fL (80.0-100.0); MEAN PLATELET VOLUME 9.5 fL (7.4-10.4); MONOCYTES 7.5 % (2-11); NEUTROPHILS 58.2 % (40-80); PLATELET COUNT 546 10x3/uL (130-400); RBC 4.37 10x6/uL (4.00-5.40); RDW 18.2 % (11.5-14.5); WBC 12.4 10x3/uL (4.8-10.8)
[2018-03-09 05:31] LABS: CALC OSMOLALITY 277 mosm/kg (275-300); CALCIUM 8.7 mg/dL (8.5-10.1); CARBON DIOXIDE 27.4 mmol/L (21.0-32.0); CHLORIDE - SERUM 103 mmol/L (98-107); CREATININE - SERUM 0.4 mg/dL (0.6-1.3); GLUCOSE 115 mg/dL (74-106); POTASSIUM - SERUM 3.9 mmol/L (3.5-5.1); SODIUM 140 mmol/L (136-145); UREA NITROGEN 6 mg/dL (7-18); eGFR NON AFRICAN AMERICAN > 90 mL/min (90-120)
--- NOTE | 2018-03-09 07:10 | NUR ---
REPORT RECEIVED FROM RESPIRATORY THERAPIST ASSISTANT. PATIENT LAYING IN BED ON BACK WITH EYES CLOSED AND CALL LIGHT IN REACH.WILL CONTINUE WITH PLAN OF CARE. SR UP X 2 CALL LIGHT IN REACH AND BED IN LOW POSITION.
[2018-03-09 09:02] VITALS: BP 135/72
--- NOTE | 2018-03-09 09:30 | NUR ---
PATIENT COMPLAINS OF GENERALIZED PAIN AND REQUEST PAIN RX. MEDICATED PER MAR ORDERS. SR UP X 2 BED IN LOW PSOTION AND CALL LIGHT IN REACH. WILL CONTINUE TO MONITOR.
[2018-03-09 11:20] LABS: FUNGUS MYCOLOGY CULTURE Final report (())
[2018-03-09 13:48] VITALS: BP 136/79
--- NOTE | 2018-03-09 13:53 | NUR ---
PATIENT LAYING IN BED WATCHING TV. PATIENT DENIES ANY NEEDS OR PAIN.
[2018-03-09] MEDS ORDERED: ROBITUSSIN DM 110 ML PO (16:02)
[2018-03-09] MEDS ORDERED: ZOFRAN4 MG PO (16:05)
[2018-03-09] MEDS ORDERED: COLACE100 MG PO (16:05)
[2018-03-09] MEDS ORDERED: MAG-OX 400 MG400 MG PO (16:06)
[2018-03-09] MEDS ORDERED: CHRONULAC30 ML PO (16:27)
[2018-03-09] MEDS ORDERED: PROVENTIL/2.5 MG/3 M INH (16:28)
[2018-03-09 16:38] VITALS: BP 136/66
--- NOTE | 2018-03-09 16:51 | MORECARE ---
CASE MANAGEMENT DISCHARGE SUMMARY PATIENT: CATERINA STEWART UNIT: [id number] ADM DATE: 02/08/18 AGE: 47 : [birth year] SEX: F ROOM/BED: D.7469 AUTHOR: RACHELLE,DOC PHYSICIAN: REFERRING PHYSICIAN: PERCY DONOVAN MD DATE OF SERVICE: 03/09/18 Discharge Plan Patient Name: CATERINA STEWART Facility: [facility]:[place] : 1970 Planned Disposition: Nursing Facility [facility] Cert Anticipated Discharge Date: 03/09/18 Discharge Date: Expected LOS: 29 Initial Reviewer: [email or web address] Initial Review Date: 02/09/2018 Generated: 03/09/18 5:50 pm DCP- Discharge Planning Updated by [id number]: Tommy Huang on 03/07/18 9:[address] Patient Name: CATERINA STEWART Encounter No: [id number] : 1970 Primary Insurance: [facility]PO Anticipated DC Date: Planned Disposition: Nursing Facility [facility] Cert External Planned Provider: [facility], LONG TERM CARE MEDICAID BED DCP follow-up note: CM FAXED UPDATE TO THE [facility] [employer] AT [phone].. FOR DISCHARGE, NOTIFY [facility] AT [phone], FAX DISCHARGE INFORMATION TO [facility] AT [phone]. [facility] TO ADMIT PT AT THE [facility] FOR H[facility]PICE. FOR DISCHARGE TO THE [facility] NURSING AND REHAB, FAX DISCHARGE INFORMATION TO THE [facility] AT [phone]; NURSE REPORT TO BE CALLED TO THE [facility] AT [phone]. PT WILL TRANSPORT VIA AMBULANCE. Tommy Huang, CASE MANAGEMENT. DCP- Discharge Planning Updated by [id number]: Tommy Huang on 03/05/18 3:[address] Patient Name: CATERINA STEWART Encounter No: [id number] : 1970 Primary Insurance: [facility] or [place]PO Anticipated DC Date: Planned Disposition: Nursing Facility [facility] Cert External Planned Provider: [facility], LONG TERM CARE MEDICAID BED DCP follow-up note: CM FAXED UPDATE TO THE [facility] [employer], [employer] AT [phone].. FOR DISCHARGE, NOTIFY [facility] AT [phone], FAX DISCHARGE INFORMATION TO [facility] AT [phone]. [facility] TO ADMIT PT AT [facility]. FOR DISCHARGE TO THE [facility]SING AND REH[facility], FAX DISCHARGE INFORMATION TO THE [facility] AT [phone]; NURSE REPORT TO BE CALLED TO THE [facility] AT [phone]. PT WILL TRANSPORT VIA AMBULANCE. TAMIKO Patterson. DCP- Discharge Planning Updated by [id number]: Tommy Huang on 03/01/18 8:[address] Patient Name: CATERINA STEWART Encounter No: [id number] : 1970 Primary Insurance: [facility] or PPO Anticipated DC Date: Planned Disposition: Nursing Facility [facility] Cert External Planned Provider: [facility], HALF-WAY CARE MEDICAID BED DCP follow-up note: CM REVIEWED CHART, NOTES INDICATE PT IS FROM THE [facility] WITH [facility] WITH PLANS TO TURN TO THE [facility] WITH HOSPICE SERVICES. CM FAXED UPDATE TO THE [facility] [employer] AT [phone]. CM FAXED UPDATE TO [facility] AT [phone]. FOR DISCHARGE, NOTIFY [facility] AT [phone], FAX DISCHARGE INFORMATION TO [facility] AT [phone]. [facility] TO ADMIT PT AT [facility] FOR DISCHARGE TO THE [facility] NURSING [facility] RE[facility], FAX DISCHARGE INFORMATION TO THE [facility] AT [phone]; NURSE REPORT TO BE CALLED TO THE [facility] AT [phone]. PT WILL TRANSPORT VIA AMBULANCE. TAMIKO Patterson DCP- Discharge Planning Updated by [id number]: Kathia Wright on 02/09/18 1:[address] Patient Name: CATERINA STEWART Admission Status: ER Accout number: [id number] Admission Date: 02-08-2018 : 1970 Admission Diagnosis: Attending: PERCY DONOVAN Current LOS: 1 Anticipated DC Date: Planned Disposition: Hospice Medical Facility Primary Insurance: [facility] [place] or [place]PO Discharge Planning Comments: CM MET WITH PATIENT ABOUT DC PLANNING/NEEDS. STATES SHE IS CURRENTLY AT THE [facility] ON HOSPICE. CM WILL CALL AND VERIFY INFORMATION. PATIENT IS HERE FOR PNEUMONIA. PATIENT STATES NO NEEDS AT TIME OF DC AND THAT HER PLAN IS TO GO BACK TO THE [facility] BY AMBULANCE. CM WILL FOLLOW AND ASSIST NEEDED WITH DC PLANNING/NEEDS. Home Service Director: Kathiasusan Wright Appended by Kathia Wright on 02/09/2018 14:26 ENLISTED ADVISOR: SPOKE WITH GÉNESIS AT [facility] AT THE [facility] AND HE STATED THEY WILL PICK HER BACK UP WHEN DISCHARGED. CM OR NURSE TO LET THEM KNOW WHEN PATIENT IS DC'D. CALL [facility] AT [phone] WHEN PATIENT IS BEING DC'D FROM HOSPITAL. DCPIA - Discharge Planning Initial Assessment Updated by [email or web address]: Kathia Wright on 02/09/18 11:19 am * Is the patient Alert and Oriented? Yes * PCP [facility] * Pharmacy THROUGH [facility] * Preadmission Environment Hospice * Facility Name [facility] * ADLs Total Dependent * Equipment Hospital Bed Oxygen Trach Care Supplies Wheelchair * List name and contact numbers for known caregivers / representatives who currently or will assist patient after discharge: RICHIE, DAUGHTER, * Community resources currently utilized Other * Please name any agencies selected above. [facility] * Additional services required to return to the preadmission environment? No * Can the patient safely return to the preadmission environment? Yes * Has this patient been hospitalized within the prior 30 days at any hospital? No Last DP export: 03/07/18 9:25 a Patient Name: CATERINA STEWART Page 87621 at 1651 All edits/amendments must be made on the electronic document DICTATION DATE: 03/09/181649 REGISTERED PUBLIC SURVEYOR: KOBE 03/09/181649 RPT#: [id number] DC DATE: STATUS: ADM IN [facility] [address] [place] [address] END OF REPORT
--- NOTE | 2018-03-09 17:14 | MORECARE ---
CASE MANAGEMENT DISCHARGE SUMMARY PATIENT: CATERINA STEWART UNIT: [id number] ADM DATE: 02/08/18 AGE: 47 : 66 SEX: F ROOM/BED: D.4255 AUTHOR: RACHELLE,DOC PHYSICIAN: REFERRING PHYSICIAN: PERCY DONOVAN MD DATE OF SERVICE: 03/09/18 Discharge Plan Patient Name: CATERINA STEWART Facility: [facility]:[place] : 1970 Planned Disposition: Nursing Facility [facility] Cert Anticipated Discharge Date: 03/09/18 Discharge Date: Expected LOS: 29 Initial Reviewer: [id number] Initial Review Date: 02/09/2018 Generated: 03/09/18 6:14 pm DCP- Discharge Planning Updated by [email or web address]: Tommy Huang on 03/07/18 9:[address] Patient Name: CATERINA STEWART Encounter No: [id number] : 1970 Primary Insurance: [facility] MED[place] HMO or PPO Anticipated DC Date: Planned Disposition: Nursing Facility [facility] Cert External Planned Provider: [facility], LONG TERM CARE MEDICAID BED DCP follow-up note: CM FAXED UPDATE TO THE [facility] [employer] AT [phone].. FOR DISCHARGE, NOTIFY [facility] AT [phone], FAX DISCHARGE INFORMATION TO [facility] AT [phone]. [facility] TO ADMIT PT AT THE [facility] FOR HOSPICE. FOR DISCHARGE TO THE [facility] NURSING AND REHAB, FAX DISCHARGE INFORMATION TO THE [facility] AT [phone]; NURSE REPORT TO BE CALLED TO THE [facility] AT [phone]. PT WILL TRANSPORT VIA AMBULANCE. Tommy Huang, CASE MANAGEMENT. DCP- Discharge Planning Updated by [id number]: Tommy Huang on 03/05/18 3:[address] Patient Name: CATERINA STEWART Encounter No: [id number] : 1970 Primary Insurance: [facility] MEDIC[facility] HMO or PPO Anticipated DC Date: Planned Disposition: Nursing Facility [facility] Cert External Planned Provider: [facility], LONG TERM CARE MEDICAID BED DCP follow-up note: CM FAXED UPDATE TO THE [facility] [employer] AT [phone].. FOR DISCHARGE, NOTIFY [facility] AT [phone], FAX DISCHARGE INFORMATION TO [facility] AT [phone]. [facility] TO ADMIT PT AT [facility]. FOR DISCHARGE TO THE [facility] NURSING AND REHAB, FAX DISCHARGE INFORMATION TO THE [facility] AT [phone]; NURSE REPORT TO BE CALLED TO THE [facility] AT [phone]. PT WILL TRANSPORT VIA AMBULANCE. TAMIKO Patterson. DCP- Discharge Planning Updated by [id number]: Tommy Huang on 03/01/18 8:[address] Patient Name: CATERINA STEWART Encounter No: [id number] : 1970 Primary Insurance: [facility] MEDIC[facility] HMO or PPO Anticipated DC Date: Planned Disposition: Nursing Facility [facility] Cert External Planned Provider: [facility] N[facility]SING AND REH[facility], SENIOR CARE CARE MEDICAID BED DCP follow-up note: CM REVIEWED CHART, NOTES INDICATE PT IS FROM THE [facility] WITH [facility] WITH PLANS TO TURN TO THE [facility] WITH HOSPICE SERVICES. CM FAXED UPDATE TO THE [facility] [employer]IA [employer] AT [phone]. CM FAXED UPDATE TO [facility] AT [phone]. FOR DISCHARGE, NOTIFY [facility] AT [phone], FAX DISCHARGE INFORMATION TO [facility] AT [phone]. [facility] TO ADMIT PT AT [facility]. FOR DISCHARGE TO THE [facility] NURSING [facility] REHAB, FAX DISCHARGE INFORMATION TO THE [facility] AT [phone]; NURSE REPORT TO BE CALLED TO THE [facility] AT [phone]. PT WILL TRANSPORT VIA AMBULANCE. TAMIKO Patterson DCP- Discharge Planning Updated by [id number]: Kathia Wright on 02/09/18 1:[address] Patient Name: CATERINA STEWART Admission Status: ER Accout number: [id number] Admission Date: 02-08-2018 : 1970 Admission Diagnosis: Attending: PERCY DONOVAN Current LOS: 1 Anticipated DC Date: Planned Disposition: Hospice Medical Facility Primary Insurance: [facility] MEDIC[facility] HMO or PPO Discharge Planning Comments: CM MET WITH PATIENT ABOUT DC PLANNING/NEEDS. STATES SHE IS CURRENTLY AT THE [facility] ON HOSPICE. CM WILL CALL AND VERIFY INFORMATION. PATIENT IS HERE FOR PNEUMONIA. PATIENT STATES NO NEEDS AT TIME OF DC AND THAT HER PLAN IS TO GO BACK TO THE [facility] BY AMBULANCE. CM WILL FOLLOW AND ASSIST NEEDED WITH DC PLANNING/NEEDS. Machine Set Up Operator [employer]: Kathiasusan Wright Appended by Kathia Wright on 02/09/2018 14:26 MANAGER SUBWAY: SPOKE WITH GÉNESIS AT [facility] AT THE [facility] AND HE STATED THEY WILL PICK HER BACK UP WHEN DISCHARGED. CM OR NURSE TO LET THEM KNOW WHEN PATIENT IS DC'D. CALL GÉNESIS AT [phone] WHEN PATIENT IS BEING DC'D FROM HOSPITAL. DCPIA - Discharge Planning Initial Assessment Updated by [id number]: Kathia Wright on 02/09/18 11:19 am * Is the patient Alert and Oriented? Yes * PCP [facility] * Pharmacy THROUGH [facility] * Preadmission Environment Hospice * Facility Name [facility] * ADLs Total Dependent * Equipment Hospital Bed Oxygen Trach Care Supplies Wheelchair * List name and contact numbers for known caregivers / representatives who currently or will assist patient after discharge: RICHIE, DAUGHTER, * Community resources currently utilized Other * Please name any agencies selected above. [facility] * Additional services required to return to the preadmission environment? No * Can the patient safely return to the preadmission environment? Yes * Has this patient been hospitalized within the prior 30 days at any hospital? No Last DP export: 03/09/18 3:50 pm Patient Name: CATERINA STEWART Page 34639 at 1714 All edits/amendments must be made on the electronic document DICTATION DATE: 03/09/181712 OFFICE SPECIALIST: KOBE 03/09/181712 RPT#: [id number] DC DATE: STATUS: ADM IN [facility] [address] [place] [address] END OF REPORT
--- NOTE | 2018-03-09 17:16 | NUR ---
ORDER RECIEVED FOR DC PER CASE MANAGEMENT, [facility] WILL NOT RE-ASSUME CARE OF PATIENT DUE TO PATIENT BEING ON O2 AT 15HF.
--- NOTE | 2018-03-09 17:29 | MORECARE ---
CASE MANAGEMENT DISCHARGE SUMMARY PATIENT: CATERINA STEWART UNIT: [id number] ADM DATE: 02/08/18 AGE: 47 : 66 SEX: F ROOM/BED: D.3653 AUTHOR: RACHELLE,DOC PHYSICIAN: REFERRING PHYSICIAN: PERCY DONOVAN MD DATE OF SERVICE: 03/09/18 Discharge Plan Patient Name: CATERINA STEWART Facility: [facility]:[place] : 1970 Planned Disposition: Nursing Facility [facility] Cert Anticipated Discharge Date: 03/09/18 Discharge Date: Expected LOS: 29 Initial Reviewer: [id number] Initial Review Date: 02/09/2018 Generated: 03/09/18 6:29 pm Comments DCP- Discharge Planning Updated by [email or web address]: Josue Melton on 03/09/18 4:[address] Patient Name: CATERINA STEWART Encounter No: [id number] : 1970 Primary Insurance: [facility] MEDICARE HMO or PPO Anticipated DC Date: 03-09-2018 Planned Disposition: Nursing Facility [facility] Cert External Planned Provider: Nursing Facility [facility] Cert External Planned Provider: [facility], LONG TERM CARE MEDICAID BED DCP follow-up note: CM RECEIVED DISCHARGE ORDER, SPOKE TO PT IN ROOM WHO REPORTS WANTING TO GO HOME TO THE [facility] AND WANTS HOSPICE SERVICES RESTARTED WITH [facility]. PT REPORTS HOSPICE NEEDS TO BRING HER BED BACK TO THE [facility]. IMPORTANT MESSAGE FROM MEDICARE PROVIDED AND EXPLAINED. CM FAXED DISCHARGE INFORMATION TO THE [facility] VIA [employer] AT [phone]. CM NOTIFIED [employer] OF DISCHARGE AT [phone]. CM NOTIFIED [facility] OF [facility] AT [phone] WHO INFORMED CM THAT PT HAD REVOKED HOSPICE AND WILL NEED NEW ORDER FOR EVALUATION AND ADMIT TO HOSPICE. CM RECEIVED CALL FROM [facility] WHO INFORMED CM THAT HOSPICE HAD PT'S MATTRESS PICKED UP. CM NOTIFIED [facility] THAT PT WILL NEED HER MATTRESS BACK AT FACILITY. CM FAXED DISCHARGE INFORMATION TO [facility] AT [phone]. CM RECEIVED CALL FROM GÉNESIS OF [facility] WHO SPOKE TO ISACC OF THE [facility], THE [facility] DOES NOT FEEL COMFORTABLE ADMITTING PT ON 15 LITERS OXYGEN. GÉNESIS WILL SPEAK TO HOSPICE NURSE REGARDING POSSIBLE INPATIENT HOSPICE EVALUATION. BEDSIDE NURSE NOTIFIED. [facility] WILL NOT ACCEPT PT BACK ON 15 LITERS OXYGEN. CM RECEIVED CALL FROM GÉNESIS OF [facility] WHO INFORMED CM THAT PT IS NOT LIKELY GOING TO QUALIFY FOR INPATIENT HOSPICE FOR ONLY THE OXYGEN NEED. PT WILL NEED TO BE WEANED FROM HIGH OXYGEN NEED IF POSSIBLE. GÉNESIS OF [facility] WILL FOLLOW UP TOMORROW TO CHECK ON PT'S STATUS IN HOSPITAL. JOSUE MELTON, CASE MANAGEMENT DCP- Discharge Planning Updated by [id number]: Josue Melton on 03/07/18 9:[address] Patient Name: CATERINA STEWART Encounter No: [id number] : 1970 Primary Insurance: [facility] MEDICARE HMO or PPO Anticipated DC Date: Planned Disposition: Nursing Facility [facility] Cert External Planned Provider: [facility], LONG TERM CARE MEDICAID BED DCP follow-up note: CM FAXED UPDATE TO THE [facility] VIA [employer] AT [phone].. FOR DISCHARGE, NOTIFY [facility] AT [phone], FAX DISCHARGE INFORMATION TO [facility] AT [phone]. [facility] TO ADMIT PT AT THE [facility] FOR DISCHARGE TO THE [facility], FAX DISCHARGE INFORMATION TO THE [facility] AT [phone]; NURSE REPORT TO BE CALLED TO THE [facility] AT [phone]. PT WILL TRANSPORT VIA AMBULANCE. TAMIKO Patterson. DCP- Discharge Planning Updated by [email or web address]: Josue Melton on 03/05/18 3:[address] Patient Name: CATERINA STEWART Encounter No: [id number] : 1970 Primary Insurance: MISC MEDICARE HMO or PPO Anticipated DC Date: Planned Disposition: Nursing Facility [facility] Cert External Planned Provider: [facility], LONG TERM CARE MEDICAID BED DCP follow-up note: CM FAXED UPDATE TO THE [facility] VIA [employer] AT [phone].. FOR DISCHARGE, NOTIFY [facility] AT [phone], FAX DISCHARGE INFORMATION TO [facility] AT [phone]. [facility]. FOR DISCHARGE TO THE [facility], FAX DISCHARGE INFORMATION TO THE [facility] AT [phone]; NURSE REPORT TO BE CALLED TO THE [facility] AT [phone]. PT WILL TRANSPORT VIA AMBULANCE. TAMIKO Patterson. DCP- Discharge Planning Updated by [id number]: Josue Melton on 03/01/18 8:[address] Patient Name: CATERINA STEWART Encounter No: [id number] : 1970 Primary Insurance: [facility] MEDICARE HMO or PPO Anticipated DC Date: Planned Disposition: Nursing Facility [facility] Cert External Planned Provider: [facility], CHIEF HUMAN [employer] OFFICER CARE MEDICAID BED DCP follow-up note: CM REVIEWED CHART, NOTES INDICATE PT IS FROM [facility] WITH [facility] WITH PLANS TO TURN TO THE [facility] WITH HOSPICE SERVICES. CM FAXED UPDATE TO THE [facility] VIA [employer] AT [phone]. CM FAXED UPDATE TO [facility] AT [phone]. FOR DISCHARGE, NOTIFY [facility] AT [phone], FAX DISCHARGE INFORMATION TO [facility] AT [phone]. [facility] TO ADMIT PT AT THE [facility] FOR [facility]. FOR DISCHARGE TO THE [facility], FAX DISCHARGE INFORMATION TO THE [facility] AT [phone]; NURSE REPORT TO BE CALLED TO THE [facility] AT [phone]. PT WILL TRANSPORT VIA AMBULANCE. TAMIKO Patterson MANAGEMENT DCP- Discharge Planning Updated by [email or web address]: Kathia Wright on 02/09/18 1:[address] Patient Name: CATERINA STEWART Admission Status: ER Accout number: [id number] Admission Date: 02-08-2018 : 1970 Admission Diagnosis: Attending: PERCY DONOVAN Current LOS: 1 Anticipated DC Date: Planned Disposition: Hospice Medical Facility Primary Insurance: [facility] MEDICARE HMO or PPO Discharge Planning Comments: CM MET WITH PATIENT ABOUT DC PLANNING/NEEDS. STATES SHE IS CURRENTLY AT THE [facility] ON HOSPICE. CM WILL CALL AND VERIFY INFORMATION. PATIENT IS HERE FOR PNEUMONIA. PATIENT STATES NO NEEDS AT TIME OF DC AND THAT HER PLAN IS TO GO BACK TO THE [facility] BY AMBULANCE. CM WILL FOLLOW AND ASSIST NEEDED WITH DC PLANNING/NEEDS. Color Control Operator: Kathia Wright Appended by Kathia Wright on 02/09/2018 14:26 DIRECTOR HEDIS: SPOKE WITH GÉNESIS AT [facility] AT THE [facility] AND HE STATED THEY WILL PICK HER BACK UP WHEN DISCHARGED. CM OR NURSE TO LET THEM KNOW WHEN PATIENT IS DC'D. CALL GÉNESIS AT [phone] WHEN PATIENT IS BEING DC'D FROM HOSPITAL. DCPIA - Discharge Planning Initial Assessment Updated by [id number]: Kathia Wright on 02/09/18 11:19 am * Is the patient Alert and Oriented? Yes * PCP VENUS * Pharmacy THROUGH THE [facility] * Preadmission Environment Hospice * Facility Name [facility] * ADLs Total Dependent * Equipment Hospital Bed Oxygen Trach Care Supplies Wheelchair * List name and contact numbers for known caregivers / representatives who currently or will assist patient after discharge: IBAN QUIROZ, * Community resources currently utilized Other * Please name any agencies selected above. [facility] * Additional services required to return to the preadmission environment? No * Can the patient safely return to the preadmission environment? Yes * Has this patient been hospitalized within the prior 30 days at any hospital? No Coverage Notice Reviewer: [id number] Paulino Melton Notice Issued Date-Time: 03/09/2018 16:45 Notice Type: IM Discharge Notice Notice Delivered To: Patient Relationship to Patient: Regional Education Coordinator Name: Delivery Method: HAND - Hand Delivered Quin Days: Prior Verbal Notification: Recipient Understood Notice: Yes Recipient Signature: Yes Med Rec Note Co-signed by Attending: Coverage Notice Comment: Last DP export: 03/09/18 4:14 pm Patient Name: CATERINA STEWART Page 23769 at 1729 All edits/amendments must be made on the electronic document DICTATION DATE: 03/09/181727 HOT BALLER: KOBE 03/09/181727 RPT#: [id number] DC DATE: STATUS: ADM IN [facility] [address] [place] [address] END OF REPORT
--- NOTE | 2018-03-09 19:46 | MORECARE ---
CASE MANAGEMENT DISCHARGE SUMMARY PATIENT: CATERINA STEWART UNIT: [id number] ADM DATE: 02/08/18 AGE: 47 : 66 SEX: F ROOM/BED: D.5663 AUTHOR: RACHELLE,DOC PHYSICIAN: REFERRING PHYSICIAN: PERCY DONOVAN MD DATE OF SERVICE: 03/09/18 Discharge Plan Patient Name: CATERINA STEWART Facility: [facility]:[place] : 1970 Planned Disposition: Nursing Facility [facility] Cert Anticipated Discharge Date: 03/09/18 Discharge Date: Expected LOS: 29 Initial Reviewer: [id number] Initial Review Date: 02/09/2018 Generated: 03/09/18 8:46 pm Comments DCP- Discharge Planning Updated by [email or web address]: Josue Melton on 03/09/18 4:[address] Patient Name: CATERINA STEWART Encounter No: [id number] : 1970 Primary Insurance: [facility] [place] or PPO Anticipated DC Date: 03-09-2018 Planned Disposition: Nursing Facility [facility] Cert External Planned Provider: Nursing Facility [facility] Cert External Planned Provider: [facility] [place] [facility], LONG TERM CARE MEDICAID BED DCP follow-up note: CM RECEIVED DISCHARGE ORDER, SPOKE TO PT IN ROOM WHO REPORTS WANTING TO GO HOME TO THE [facility] AND WANTS HOSPICE SERVICES RESTARTED WITH [facility]. PT REPORTS HOSPICE NEEDS TO BRING HER BED BACK TO THE [facility] [place] [place]. IMPORTANT MESSAGE FROM MEDICARE PROVIDED AND EXPLAINED. CM FAXED DISCHARGE INFORMATION TO THE [facility] [place] [place] VIA [employer] AT [phone]. CM NOTIFIED [employer] OF DISCHARGE AT [phone]. CM NOTIFIED [facility] AT [phone] WHO INFORMED CM THAT PT HAD REVOKED HOSPICE AND WILL NEED NEW ORDER FOR EVALUATION AND ADMIT TO HOSPICE. CM RECEIVED CALL FROM [facility] WHO INFORMED CM THAT HOSPICE HAD PT'S MATTRESS PICKED UP. CM NOTIFIED [facility] THAT PT WILL NEED HER MATTRESS BACK AT FACILITY. CM FAXED DISCHARGE INFORMATION TO [facility] AT [phone]. CM RECEIVED CALL FROM GÉNESIS OF [facility] WHO SPOKE TO ISACC OF THE [facility] [place], [facility] [place] DOES NOT FEEL COMFORTABLE ADMITTING PT ON 15 LITERS OXYGEN. GÉNESIS WILL SPEAK TO HOSPICE NURSE REGARDING POSSIBLE INPATIENT HOSPICE EVALUATION. BEDSIDE NURSE NOTIFIED. [facility] WILL NOT ACCEPT PT BACK ON 15 LITERS OXYGEN. CM RECEIVED CALL FROM GÉNESIS OF [facility] WHO INFORMED CM THAT PT IS NOT LIKELY GOING TO QUALIFY FOR INPATIENT HOSPICE FOR ONLY THE OXYGEN NEED. PT WILL NEED TO BE WEANED FROM HIGH OXYGEN NEED IF POSSIBLE. GÉNESIS OF [facility] WILL FOLLOW UP TOMORROW TO CHECK ON PT'S STATUS IN HOSPITAL. JOSUE MELTON, CASE MANAGEMENT DCP- Discharge Planning Updated by [email or web address]: Josue Melton on 03/07/18 9:[address] Patient Name: CATERINA STEWART Encounter No: [id number] : 1970 Primary Insurance: [facility] [place] H[place] or PPO Anticipated DC Date: Planned Disposition: Nursing Facility [facility] Cert External Planned Provider: [facility], LONG TERM CARE MEDICAID BED DCP follow-up note: CM FAXED UPDATE TO THE [facility] [place] [place] VIA [employer] AT [phone].. FOR DISCHARGE, NOTIFY [facility] AT [phone], FAX DISCHARGE INFORMATION TO [facility] AT [phone]. [facility] TO ADMIT PT AT THE [facility] FOR DISCHARGE TO THE [facility], FAX DISCHARGE INFORMATION TO THE [facility] [place] [place] AT [phone]; NURSE REPORT TO BE CALLED TO THE [facility] [place] [place] AT [phone]. PT WILL TRANSPORT VIA AMBULANCE. TAMIKO Patterson. DCP- Discharge Planning Updated by [id number]: Josue Melton on 03/05/18 3:[address] Patient Name: CATERINA STEWART Encounter No: [id number] : 1970 Primary Insurance: MISC MEDICARE HMO or PPO Anticipated DC Date: Planned Disposition: Nursing Facility [facility] Cert External Planned Provider: [facility], LONG TERM CARE MEDICAID BED DCP follow-up note: CM FAXED UPDATE TO THE [facility] [place] [facility]IA [employer] AT [phone].. FOR DISCHARGE, NOTIFY [facility] AT [phone], FAX DISCHARGE INFORMATION TO [facility] AT [phone]. [facility] TO [facility]. FOR DISCHARGE TO THE [facility], FAX DISCHARGE INFORMATION TO THE [facility] [place] [place] AT [phone]; NURSE REPORT TO BE CALLED TO THE [facility] [place] AT [phone]. PT WILL TRANSPORT VIA AMBULANCE. TAMIKO Patterson. DCP- Discharge Planning Updated by [id number]: Josue Melton on 03/01/18 8:[address] Patient Name: CATERINA STEWART Encounter No: [id number] : 1970 Primary Insurance: [facility] [place] H[place] or PPO Anticipated DC Date: Planned Disposition: Nursing Facility [facility] Cert External Planned Provider: [facility] [place] [place] [facility], ON AIR DIRECTOR CARE MEDICAID BED DCP follow-up note: CM REVIEWED CHART, NOTES INDICATE PT IS FROM THE [facility] [place] WITH [facility] WITH PLANS TO TURN TO THE [facility] [place] WITH HOSPICE SERVICES. CM FAXED UPDATE TO THE [facility] [place] [place] VIA [employer] AT [phone]. CM FAXED UPDATE TO [facility] AT [phone]. FOR DISCHARGE, NOTIFY [facility] AT [phone], FAX DISCHARGE INFORMATION TO [facility] AT [phone]. [facility] TO ADMIT PT AT THE [facility] [place] [facility]. FOR DISCHARGE TO THE [facility] [place] [place] [facility], FAX DISCHARGE INFORMATION TO THE [facility] [place] AT [phone]; NURSE REPORT TO BE CALLED TO THE [facility] [place] AT [phone]. PT WILL TRANSPORT VIA AMBULANCE. TAMIKO Patterson MANAGEMENT DCP- Discharge Planning Updated by [id number]: Kathia Wright on 02/09/18 1:[address] Patient Name: CATERINA STEWART Admission Status: ER Accout number: [id number] Admission Date: 02-08-2018 : 1970 Admission Diagnosis: Attending: PERCY DONOVAN Current LOS: 1 Anticipated DC Date: Planned Disposition: Hospice Medical Facility Primary Insurance: [facility] [place] H[place] or PPO Discharge Planning Comments: CM MET WITH PATIENT ABOUT DC PLANNING/NEEDS. STATES SHE IS CURRENTLY AT THE [facility] [place] H[place]. CM WILL CALL AND VERIFY INFORMATION. PATIENT IS HERE FOR PNEUMONIA. PATIENT STATES NO NEEDS AT TIME OF DC AND THAT HER PLAN IS TO GO BACK TO THE [facility] [place] [place] BY AMBULANCE. CM WILL FOLLOW AND ASSIST NEEDED WITH DC PLANNING/NEEDS. Iron Cutter: Kathia Wright Appended by Kathia Wright on 02/09/2018 14:26 SENIOR DATA MODELER: SPOKE WITH G[facility]NESIS AT [facility] AT THE [facility] [place] [place] AND HE STATED THEY WILL PICK HER BACK UP WHEN DISCHARGED. CM OR NURSE TO LET THEM KNOW WHEN PATIENT IS DC'D. CALL GÉNESIS AT [phone] WHEN PATIENT IS BEING DC'D FROM HOSPITAL. DCPIA - Discharge Planning Initial Assessment Updated by [id number]: Kathia Wright on 02/09/18 11:19 am * Is the patient Alert and Oriented? Yes * PCP VENUS * Pharmacy THROUGH [facility] [place] * Preadmission Environment Hospice * Facility Name [facility] * ADLs Total Dependent * Equipment Hospital Bed Oxygen Trach Care Supplies Wheelchair * List name and contact numbers for known caregivers / representatives who currently or will assist patient after discharge: IBAN QUIROZ, * Community resources currently utilized Other * Please name any agencies selected above. [facility] * Additional services required to return to the preadmission environment? No * Can the patient safely return to the preadmission environment? Yes * Has this patient been hospitalized within the prior 30 days at any hospital? No Coverage Notice Reviewer: [id number] Paulino Melton Notice Issued Date-Time: 03/09/2018 16:45 Notice Type: IM Discharge Notice Notice Delivered To: Patient Relationship to Patient: Bright Cutter Name: Delivery Method: HAND - Hand Delivered Quin Days: Prior Verbal Notification: Recipient Understood Notice: Yes Recipient Signature: Yes Med Rec Note Co-signed by Attending: Coverage Notice Comment: Last DP export: 03/09/18 4:29 pm Patient Name: CATERINA STEWART Page [id number] at 1946 All edits/amendments must be made on the electronic document DICTATION DATE: 03/09/181945 MANAGED SECURITY SALES CONSULTANT: KOBE 03/09/181945 RPT#: [id number] DC DATE: STATUS: ADM IN [facility] [address] [place] [address] END OF REPORT
--- NOTE | 2018-03-09 19:54 | NUR ---
EVENING ROUNDS COMPLETED. REPORT RECEIVED. PT SITTING UP IN BED WITH EYES OPEN, RR EVEN AND UNLABORED. OXYGEN AT 15 LITERS THROUGH TRACH. NO S/S OF DISTRESS. PT STATES SHE WAS SUPPOSED TO GO HOME, ORDERS CHECKED, NO DISCHARGE FOUND. NO S/S OF DISTRESS NOTED. CALL LIGHT IN REACH. WILL CTM.
[2018-03-09 20:00] VITALS: BP 147/76
[2018-03-10 00:19] LABS: APPEARANCE HAZY (CLEAR); BILIRUBIN NEGATIVE (NEGATIVE); COLOR YELLOW (YELLOW); GLUCOSE NEGATIVE (NEGATIVE); KETONE NEGATIVE (NEGATIVE); NITRITE POSITIVE (NEGATIVE); PROTEIN 1+ mg/dL (NEGATIVE); UROBILINOGEN NORMAL (NORMAL)
[2018-03-10 00:20] LABS: BACTERIA MANY /hpf (NONE SEEN); EPITHELIAL CELLS NSEEN /hpf (0-5); RED CELLS - URINE 0-5 /hpf (0-5); WHITE CELLS - URINE 25-50 /hpf (0-5)
--- NOTE | 2018-03-10 02:25 | NUR ---
PT LYING IN BED WITH EYES CLOSED, RR EVEN AND UNLABORED. NO S/S OF DISTRESS NOTED. BED IN LOW POSITION. CALL LIGHT IN REACH. WILL CTM.
[2018-03-10 04:00] VITALS: BP 146/73
[2018-03-10 04:26] LABS: EOSINOPHILS 12.1 % (0-7); HEMOGLOBIN 11.5 g/dL (12-16); IMMATURE GRANULOCYTES 0.9 % (0-5); LYMPHOCYTES 22.3 % (15-50); MCH 26.8 pg (26.0-34.0); MCHC 31.1 g/dL (31.0-37.0); MCV 86.2 fL (80.0-100.0); MEAN PLATELET VOLUME 9.3 fL (7.4-10.4); MONOCYTES 8.3 % (2-11); NEUTROPHILS 55.4 % (40-80); PLATELET COUNT 529 10x3/uL (130-400); RBC 4.29 10x6/uL (4.00-5.40); WBC 11.8 10x3/uL (4.8-10.8)
[2018-03-10 04:34] LABS: CALC OSMOLALITY 278 mosm/kg (275-300); CALCIUM 8.8 mg/dL (8.5-10.1); CARBON DIOXIDE 29.2 mmol/L (21.0-32.0); CHLORIDE - SERUM 103 mmol/L (98-107); CREATININE - SERUM 0.4 mg/dL (0.6-1.3); GLUCOSE 126 mg/dL (74-106); SODIUM 140 mmol/L (136-145); UREA NITROGEN 6 mg/dL (7-18); eGFR NON AFRICAN AMERICAN > 90 mL/min (90-120)
--- NOTE | 2018-03-10 05:21 | NUR ---
PT SITTING UP IN BED WITH EYES CLOSED, RR EVEN AND UNLABORED. BED IN LOW POSITON. NO S/S OF DISTRESS NOTED. OXYGEN AT 15 LITERS BY TRACH. CALL LIGHT IN REACH. WILL CTM.
--- NOTE | 2018-03-10 06:42 | NUR ---
RESPIRATORY CULTURE COLLECTED ORDERED.
--- NOTE | 2018-03-10 08:19 | NUR ---
PATIENT IS RESTING QUIETLY AT THIS TIME. LIGHTS OFF.
[2018-03-10 09:40] VITALS: BP 153/75
--- NOTE | 2018-03-10 09:45 | NUR ---
RESP UL ON . [facility] INTACT. CALL LIGHT IN REACH. WILL MONITOR NEEDS.
[2018-03-10 13:51] VITALS: BP 131/76
[2018-03-10 17:02] VITALS: BP 154/76
--- NOTE | 2018-03-10 19:44 | NUR ---
REPORT RECEIVED. EVENING ROUNDS COMPLETED. PT SITTING UP IN BED WITH EYES OPEN, RR EVEN AND UNLABORED. BED IN LOW POSITION. OXYGEN IN PLACE ON TRACH COLLAR AT 3 LITERS. NO S/S OF DISTRESS. INTRODUCED SELF TO PT. PT DENIES FURTHER NEEDS. CALL LIGHT IN REACH. WILL CTM.
[2018-03-10 20:00] VITALS: BP 166/68
[2018-03-11] VITALS (7 sets, daily range): BP systolic 105–156; BP diastolic 51–77
--- NOTE | 2018-03-11 00:40 | NUR ---
PT LYING IN BED WITH EYES CLOSED, RR EVEN AND UNLABORED. BED IN LOW POSITION. SIDE RAILS UP X2. NO S/S OF DISTRESS NOTED. CALL LIGHT IN REACH. WILL CTM.
--- NOTE | 2018-03-11 04:43 | NUR ---
RN ROUNDS. ASSESSED. PT RESTING WITH NON LABORED RESPIRATIONS, CALL LIGHT IN REACH. MONITOR AND CPOC.
--- NOTE | 2018-03-11 07:30 | NUR ---
A/A/OX4. RESTING QUIETLY IN BED WATCHING TV. DENIES ANY NEED FOR PAIN MED AT PRESENT TIME AND NO REQUESTS VOICED. BED IN LOWEST POSITION, SIDERAILS UP X 2 AND CALL LIGHT IN REACH. ASSESSMENT COMPLETED. WILL CPOC
--- NOTE | 2018-03-11 13:05 | NUR ---
RESTS IN ISOLATION. RESP UL ON . HIMANSHU INTACT. CALL LIGHT IN REACH.
--- NOTE | 2018-03-11 19:09 | NUR ---
REPORT RECEIVED. EVENING ROUNDS COMPLETED. PT SITTING UP IN BED WITH EYES OPEN, RR EVEN AND UNLABORED. BED IN LOW POSITION. RESPIRATORY IN ROOM. INTRODUCED SELF TO PT. PT DENIES FURTHER NEEDS AT THIS TIME. NO S/S OF DISTRESS NOTED. CALL LIGHT IN REACH. WILL CTM.
--- NOTE | 2018-03-11 20:53 | NUR ---
ADMINISTERED ORDERED ANALGESIC FOR PT COMPLAINTS OF PAIN IN NECK, PT STATES PAIN OF A 7 ON A SCALE OF 0-10.
--- NOTE | 2018-03-11 23:48 | NUR ---
PT SITTING UP IN BED WITH EYES OPEN, RR EVEN AND UNLABORED. SUCTION PROVIDED TO PT TRACH PER PT REQUEST. PT DENIES FURTHER NEEDS AT THIS TIME. CALL LIGHT IN REACH. WILL CTM.
--- NOTE | 2018-03-12 00:49 | NUR ---
PT IS CURRENTLY SITTING UP IN BED. RESPIRATORY WAS CALLED TO ASSIST PT SHE HAD MANUALLY REMOVED A PORTION OF HER TRACH COLLAR AND WAS CONCERNED SHE COULD NOT INSERT IT BACK INTO THE RIGHT POSITION. AFTER THE TRACH COLLAR WAS REPLACED I EXPLAINED TO THE PT TO NOT MAKE ANY FURTHER ADJUSTMENTS TO HER TRACH COLLAR DURING HER STAY AT THE HOSPITAL AND TO OMLY ALLOW PROPER AN/SSN 2 4 OPERATOR TO ADJUST HER TRACH COLLAR.
[2018-03-12 03:50] VITALS: BP 109/60
--- NOTE | 2018-03-12 04:19 | NUR ---
PT RESTING IN BED WITH NO DISTRESS. RESPS EVEN/NONLABORED. CALL LIGHT IN REACH. MONITOR AND CPOC.
[2018-03-12 07:07] LABS: BASOPHILS 0.8 % (0-2); EOSINOPHILS 9.6 % (0-7); HEMATOCRIT 38.7 % (36.0-48.0); HEMOGLOBIN 11.9 g/dL (12-16); IMMATURE GRANULOCYTES 1.6 % (0-5); LYMPHOCYTES 19.6 % (15-50); MCH 26.4 pg (26.0-34.0); MCHC 30.7 g/dL (31.0-37.0); MCV 85.8 fL (80.0-100.0); MEAN PLATELET VOLUME 9.3 fL (7.4-10.4); MONOCYTES 7.1 % (2-11); NEUTROPHILS 61.3 % (40-80); PLATELET COUNT 559 10x3/uL (130-400); RBC 4.51 10x6/uL (4.00-5.40); RDW 18.2 % (11.5-14.5); WBC 13.3 10x3/uL (4.8-10.8)
[2018-03-12 07:22] LABS: CALC OSMOLALITY 277 mosm/kg (275-300); CALCIUM 8.9 mg/dL (8.5-10.1); CARBON DIOXIDE 27.2 mmol/L (21.0-32.0); CHLORIDE - SERUM 102 mmol/L (98-107); CREATININE - SERUM 0.5 mg/dL (0.6-1.3); GLUCOSE 127 mg/dL (74-106); MAGNESIUM - SERUM 1.9 mg/dL (1.8-2.4); PHOSPHOROUS 4.8 mg/dL (2.5-4.9); POTASSIUM - SERUM 3.7 mmol/L (3.5-5.1); SODIUM 139 mmol/L (136-145); UREA NITROGEN 8 mg/dL (7-18); eGFR NON AFRICAN AMERICAN > 90 mL/min (90-120)
--- NOTE | 2018-03-12 07:40 | NUR ---
RESTING QUIETLY RESP UNLABORED NAD NOTED
--- NOTE | 2018-03-12 13:29 | MORECARE ---
CASE MANAGEMENT DISCHARGE SUMMARY PATIENT: CATERINA STEWART UNIT: [id number] ADM DATE: 02/08/18 AGE: 47 : [birth year] SEX: F ROOM/BED: D.9926 AUTHOR: RACHELLE,DOC PHYSICIAN: REFERRING PHYSICIAN: PERCY DONOVAN MD DATE OF SERVICE: 03/12/18 Discharge Plan Patient Name: CATERINA STEWART Facility: [facility]:[place] : 1970 Planned Disposition: Nursing Facility [facility] Cert Anticipated Discharge Date: 03/09/18 Discharge Date: Expected LOS: 29 Initial Reviewer: [id number] Initial Review Date: 02/09/2018 Generated: 03/12/18 2:29 pm Comments DCP- Discharge Planning Updated by [id number]: Josue Melton on 03/09/18 4:[address] Patient Name: CATERINA STEWART Encounter No: [id number] : 1970 Primary Insurance: [facility] [place] Anticipated DC Date: 03-09-2018 Planned Disposition: Nursing Facility [facility] Cert External Planned Provider: Nursing Facility [facility] Cert External Planned Provider: [facility], LONG TERM CARE MEDICAID BED DCP follow-up note: CM RECEIVED DISCHARGE ORDER, SPOKE TO PT IN ROOM WHO REPORTS WANTING TO GO HOME TO THE [facility] AND WANTS HOSPICE SERVICES RESTARTED WITH [facility]. PT REPORTS HOSPICE NEEDS TO BRING HER BED BACK TO THE [facility]. IMPORTANT MESSAGE FROM MEDICARE PROVIDED AND EXPLAINED. CM FAXED DISCHARGE INFORMATION TO [facility] VIA [employer] AT [phone]. CM NOTIFIED [facility] OF DISCHARGE AT [phone]. CM NOTIFIED [facility] AT [phone] WHO INFORMED CM THAT PT HAD REVOKED HOSPICE AND WILL NEED NEW ORDER FOR EVALUATION AND ADMIT TO HOSPICE. CM RECEIVED CALL FROM [facility] WHO INFORMED CM THAT HOSPICE HAD PT'S MATTRESS PICKED UP. CM NOTIFIED [facility] THAT PT WILL NEED HER MATTRESS BACK AT FACILITY. CM FAXED DISCHARGE INFORMATION TO [facility] AT [phone]. CM RECEIVED CALL FROM GÉNESIS OF [facility] WHO SPOKE TO [facility] OF THE [facility], [facility] DOES NOT FEEL COMFORTABLE ADMITTING PT ON 15 LITERS OXYGEN. G[facility]IS WILL SPEAK TO HOSPICE NURSE REGARDING POSSIBLE INPATIENT HOSPICE EVALUATION. BEDSIDE NURSE NOTIFIED. [facility] WILL NOT ACCEPT PT BACK ON 15 LITERS OXYGEN. CM RECEIVED CALL FROM G[facility]NESIS OF [facility] WHO INFORMED CM THAT PT IS NOT LIKELY GOING TO QUALIFY FOR INPATIENT HOSPICE FOR ONLY THE OXYGEN NEED. PT WILL NEED TO BE WEANED FROM HIGH OXYGEN NEED IF POSSIBLE. GÉNESIS OF [facility] WILL FOLLOW UP TOMORROW TO CHECK ON PT'S STATUS IN HOSPITAL. JOSUE MELTON, CASE MANAGEMENT DCP- Discharge Planning Updated by [id number]: Josue Melton on 03/07/18 9:[address] Patient Name: CATERINA STEWART Encounter No: [id number] : 1970 Primary Insurance: [facility] [place]PO Anticipated DC Date: Planned Disposition: Nursing Facility [facility] Cert External Planned Provider: [facility], LONG TERM CARE MEDICAID BED DCP follow-up note: CM FAXED UPDATE TO [facility] VIA [employer] AT [phone].. FOR DISCHARGE, NOTIFY [facility] AT [phone], FAX DISCHARGE INFORMATION TO [facility] AT [phone]. [facility] TO ADMIT PT AT THE [facility] FOR DISCHARGE TO THE [facility], FAX DISCHARGE INFORMATION TO [facility] AT [phone]; NURSE REPORT TO BE CALLED TO THE [facility] AT [phone]. PT WILL TRANSPORT VIA AMBULANCE. TAMIKO Patterson. DCP- Discharge Planning Updated by [id number]: Josue Melton on 03/05/18 3:[address] Patient Name: CATERINA STEWART Encounter No: [id number] : 1970 Primary Insurance: MISC MEDICARE HMO or PPO Anticipated DC Date: Planned Disposition: Nursing Facility [facility] Cert External Planned Provider: [facility], LONG TERM CARE MEDICAID BED DCP follow-up note: CM FAXED UPDATE TO [facility] VIA [employer] AT [phone].. FOR DISCHARGE, NOTIFY [facility] AT [phone], FAX DISCHARGE INFORMATION TO [facility] AT [phone]. [facility] TO AD[facility]. FOR DISCHARGE TO THE [facility], FAX DISCHARGE INFORMATION TO [facility] AT [phone]; NURSE REPORT TO BE CALLED TO THE [facility] AT [phone]. PT WILL TRANSPORT VIA AMBULANCE. TAMIKO Patterson. DCP- Discharge Planning Updated by [id number]: Josue Melton on 03/01/18 8:[address] Patient Name: CATERINA STEWART Encounter No: [id number] : 1970 Primary Insurance: [facility] [place] or [place]PO Anticipated DC Date: Planned Disposition: Nursing Facility [facility] Cert External Planned Provider: [facility], WORK ORDER DETAILER CARE MEDICAID BED DCP follow-up note: CM REVIEWED CHART, NOTES INDICATE PT IS FROM [facility] WITH [facility] WITH PLANS TO TURN TO THE [facility] WITH HOSPICE SERVICES. CM FAXED UPDATE TO [facility] VIA [employer] AT [phone]. CM FAXED UPDATE TO [facility] AT [phone]. FOR DISCHARGE, NOTIFY [facility] AT [phone], FAX DISCHARGE INFORMATION TO [facility] AT [phone]. [facility] TO ADMIT PT AT [facility] FOR DISCHARGE TO [facility], FAX DISCHARGE INFORMATION TO [facility] AT [phone]; NURSE REPORT TO BE CALLED TO THE [facility] AT [phone]. PT WILL TRANSPORT VIA AMBULANCE. TAMIKO Patterson MANAGEMENT DCP- Discharge Planning Updated by [id number]: Kathia Wright on 02/09/18 1:[address] Patient Name: CATERINA STEWART Admission Status: ER Accout number: [id number] Admission Date: 02-08-2018 : 1970 Admission Diagnosis: Attending: PERCY DONOVAN Current LOS: 1 Anticipated DC Date: Planned Disposition: Hospice Medical Facility Primary Insurance: [facility] [place]PO Discharge Planning Comments: CM MET WITH PATIENT ABOUT DC PLANNING/NEEDS. STATES SHE IS CURRENTLY AT [facility] ON HOSPICE. CM WILL CALL AND VERIFY INFORMATION. PATIENT IS HERE FOR PNEUMONIA. PATIENT STATES NO NEEDS AT TIME OF DC AND THAT HER PLAN IS TO GO BACK TO [facility] BY AMBULANCE. CM WILL FOLLOW AND ASSIST NEEDED WITH DC PLANNING/NEEDS. Master [place]: Kathia Wright Appended by Kathia Wright on 02/09/2018 14:26 SCHOOL JANITOR: SPOKE WITH GÉNESIS AT [facility] AT THE [facility] AND HE STATED THEY WILL PICK HER BACK UP WHEN DISCHARGED. CM OR NURSE TO LET THEM KNOW WHEN PATIENT IS DC'D. CALL GÉNESIS AT [phone] WHEN PATIENT IS BEING DC'D FROM HOSPITAL. DCPIA - Discharge Planning Initial Assessment Updated by [id number]: Kathia Wright on 02/09/18 11:19 am * Is the patient Alert and Oriented? Yes * PCP VENUS * Pharmacy [facility]OUGH [facility] * Preadmission Environment Hospice * Facility Name [facility] * ADLs Total Dependent * Equipment Hospital Bed Oxygen Trach Care Supplies Wheelchair * List name and contact numbers for known caregivers / representatives who currently or will assist patient after discharge: IBAN QUIROZ, * Community resources currently utilized Other * Please name any agencies selected above. [facility] * Additional services required to return to the preadmission environment? No * Can the patient safely return to the preadmission environment? Yes * Has this patient been hospitalized within the prior 30 days at any hospital? No Coverage Notice Reviewer: [id number] Paulino Melton Notice Issued Date-Time: 03/09/2018 16:45 Notice Type: IM Discharge Notice Notice Delivered To: Patient Relationship to Patient: Educational Programming Director Name: Delivery Method: HAND - Hand Delivered Quin Days: Prior Verbal Notification: Recipient Understood Notice: Yes Recipient Signature: Yes Med Rec Note Co-signed by Attending: Coverage Notice Comment: Last DP export: 03/09/18 6:46 pm Patient Name: CATERINA STEWART Page 42844 at 1329 All edits/amendments must be made on the electronic document DICTATION DATE: 03/12/18 1328 PAY STATION ATTENDANT: KOBE 03/12/18 1328 RPT#: [id number] DC DATE: STATUS: ADM IN [facility] [address] [place] [address] END OF REPORT
--- NOTE | 2018-03-12 16:43 | NUR ---
PREVIOUS DOWNS CATHETER WAS LEAKING AND DIRTY. REMOVED DOWNS CATH, CLEANED PATIENT, AND PLACED A NEW 16 DOWNS VIA STERILE TECHNIQUE. RECORDED TOTAL OUTPUT OF 450ML IN PREVIOUS DOWNS BAG AND 60ML IN THE NEW BAG. PT DENIES ANY NEEDS. WILL CTM.
--- NOTE | 2018-03-12 18:16 | NUR ---
PT CURRENTLY LYING SEMI FOWLERS. CALL LIGHT W/I REACH. DOWNS IN PLACE AND COLLECTING URINE. PT DENIES ANY NEEDS AT THIS TIME. RR EVEN AND UNLABORED ON 15L TRACH COLLAR. WILL PASS REPORT AND CONTINUE WITH POC.
--- NOTE | 2018-03-12 19:41 | NUR ---
RESUMING PATIENT CARE. PATIENT ALERT AND ORIENTED, RESTING COMFORTABLY IN BED. RESPIRATIONS ARE EVEN AND UNLABORED. NO S/S OF DISTRESS. NO C/O PAIN. CALL LIGHT WITHIN REACH. WILL CPOC.
[2018-03-12 20:00] VITALS: BP 105/54
--- NOTE | 2018-03-12 20:30 | NUR ---
PATIENT C/O NAUSEA. PATIENT HAS NO MEDICATION FOR NAUSEA. 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
[2018-03-13] VITALS: BP 113/44
--- NOTE | 2018-03-13 03:16 | NUR ---
PATIENT RESTING COMFORTABLY IN BED. RESPIRATIONS ARE EVEN AND UNLABORED. NO S/S OF DISTRESS. CALL LIGHT WITHIN REACH. WILL CPOC.
[2018-03-13 04:00] VITALS: BP 121/50
[2018-03-13 06:17] LABS: CALC OSMOLALITY 278 mosm/kg (275-300); CALCIUM 8.7 mg/dL (8.5-10.1); CARBON DIOXIDE 27.3 mmol/L (21.0-32.0); CHLORIDE - SERUM 104 mmol/L (98-107); CREATININE - SERUM 0.5 mg/dL (0.6-1.3); GLUCOSE 122 mg/dL (74-106); POTASSIUM - SERUM 4.3 mmol/L (3.5-5.1); SODIUM 140 mmol/L (136-145); UREA NITROGEN 9 mg/dL (7-18); eGFR NON AFRICAN AMERICAN > 90 mL/min (90-120)
[2018-03-13 06:21] LABS: BASOPHILS 1.1 % (0-2); HEMATOCRIT 37.5 % (36.0-48.0); HEMOGLOBIN 11.4 g/dL (12-16); IMMATURE GRANULOCYTES 1.4 % (0-5); LYMPHOCYTES 21.8 % (15-50); MCH 26.3 pg (26.0-34.0); MCHC 30.4 g/dL (31.0-37.0); MCV 86.4 fL (80.0-100.0); MEAN PLATELET VOLUME 9.6 fL (7.4-10.4); MONOCYTES 8.2 % (2-11); NEUTROPHILS 56.5 % (40-80); PLATELET COUNT 552 10x3/uL (130-400); RBC 4.34 10x6/uL (4.00-5.40); RDW 18.3 % (11.5-14.5); WBC 11.6 10x3/uL (4.8-10.8)
--- NOTE | 2018-03-13 07:22 | NUR ---
RESUMING PT CARE, PT LAYING IN BED SLEEPING, RESPIRATIONS EVEN AND UNLABORED. SPOUSE IS AT BEDSIDE, CALL LIGHT IN REACH. WILL CONTINUE TO MONITOR AND FOLLOW PLAN OF CARE.
--- NOTE | 2018-03-13 07:37 | NUR ---
RESUMING PT CARE, PT LAYING IN BED ALERT AND ORIENTED X3, CALL LIGHT IS IN REACH, WILL CONTINUE TO MONITOR AND FOLLOW PLAN OF CARE. DENIES NEEDS AT THIS TIME.
[2018-03-13 08:52] VITALS: BP 139/68
--- NOTE | 2018-03-13 10:10 | MORECARE ---
CASE MANAGEMENT DISCHARGE SUMMARY PATIENT: CATERINA STEWART UNIT: [id number] ADM DATE: 02/08/18 AGE: 47 : [birth year] SEX: F ROOM/BED: D.7175 AUTHOR: RACHELLE,DOC PHYSICIAN: REFERRING PHYSICIAN: PERCY DONOVAN MD DATE OF SERVICE: 03/13/18 Discharge Plan Patient Name: CATERINA STEWART Facility: [facility]:[place] : 1970 Planned Disposition: Nursing Facility [facility] Cert Anticipated Discharge Date: 03/09/18 Discharge Date: Expected LOS: 29 Initial Reviewer: [id number] Initial Review Date: 02/09/2018 Generated: 03/13/18 11:10 am Comments DCP- Discharge Planning Updated by [id number]: Josue Melton on 03/09/18 4:[address] Patient Name: CATERINA STEWART Encounter No: [id number] : 1970 Primary Insurance: [facility] [place] HMO or PPO Anticipated DC Date: 03-09-2018 Planned Disposition: Nursing Facility [facility] Cert External Planned Provider: Nursing Facility [facility] Cert External Planned Provider: [facility], LONG TERM CARE MEDICAID BED DCP follow-up note: CM RECEIVED DISCHARGE ORDER, SPOKE TO PT IN ROOM WHO REPORTS WANTING TO GO HOME TO THE [facility] AND WANTS HOSPICE SERVICES RESTARTED WITH [facility]. PT REPORTS HOSPICE NEEDS TO BRING HER BED BACK TO THE [facility]. IMPORTANT MESSAGE FROM MEDICARE PROVIDED AND EXPLAINED. CM FAXED DISCHARGE INFORMATION TO THE [facility] VIA [employer] AT [phone]. CM NOTIFIED [facility] OF DISCHARGE AT [phone]. CM NOTIFIED [facility] AT [phone] WHO INFORMED CM THAT PT HAD REVOKED HOSPICE AND WILL NEED NEW ORDER FOR EVALUATION AND ADMIT TO HOSPICE. CM RECEIVED CALL FROM [facility] WHO INFORMED CM THAT HOSPICE HAD PT'S MATTRESS PICKED UP. CM NOTIFIED [facility] THAT PT WILL NEED HER MATTRESS BACK AT FACILITY. CM FAXED DISCHARGE INFORMATION TO [facility] AT [phone]. CM RECEIVED CALL FROM GÉNESIS OF [facility] WHO SPOKE TO [facility] OF THE [facility], THE [facility] DOES NOT FEEL COMFORTABLE ADMITTING PT ON 15 LITERS OXYGEN. GÉNESIS WILL SPEAK TO HOSPICE NURSE REGARDING POSSIBLE INPATIENT HOSPICE EVALUATION. BEDSIDE NURSE NOTIFIED. [facility] WILL NOT ACCEPT PT BACK ON 15 LITERS OXYGEN. CM RECEIVED CALL FROM GÉNESIS OF [facility] WHO INFORMED CM THAT PT IS NOT LIKELY GOING TO QUALIFY FOR INPATIENT HOSPICE FOR ONLY THE OXYGEN NEED. PT WILL NEED TO BE WEANED FROM HIGH OXYGEN NEED IF POSSIBLE. G[facility]NESIS OF [facility] WILL FOLLOW UP TOMORROW TO CHECK ON PT'S STATUS IN HOSPITAL. JOSUE MELTON, CASE MANAGEMENT DCP- Discharge Planning Updated by [id number]: Josue Melton on 03/07/18 9:[address] Patient Name: CATERINA STEWART Encounter No: [id number] : 1970 Primary Insurance: [facility] [place] HMO or PPO Anticipated DC Date: Planned Disposition: Nursing Facility [facility] Cert External Planned Provider: [facility], LONG TERM CARE MEDICAID BED DCP follow-up note: CM FAXED UPDATE TO THE [facility] VIA [employer] AT [phone].. FOR DISCHARGE, NOTIFY [facility] AT [phone], FAX DISCHARGE INFORMATION TO [facility] AT [phone]. [facility] TO ADMIT PT AT THE [facility] FOR DISCHARGE TO THE [facility], FAX DISCHARGE INFORMATION TO THE [facility] AT [phone]; NURSE REPORT TO BE CALLED TO THE [facility] AT [phone]. PT WILL TRANSPORT VIA AMBULANCE. TAMIKO Patterson. DCP- Discharge Planning Updated by [id number]: Josue Melton on 03/05/18 3:[address] Patient Name: CATERINA STEWART Encounter No: [id number] : 1970 Primary Insurance: MISC MEDICARE HMO or PPO Anticipated DC Date: Planned Disposition: Nursing Facility [facility] Cert External Planned Provider: [facility], LONG TERM CARE MEDICAID BED DCP follow-up note: CM FAXED UPDATE TO THE [facility] VIA [employer] AT [phone].. FOR DISCHARGE, NOTIFY [facility] AT [phone], FAX DISCHARGE INFORMATION TO [facility] AT [phone]. [facility] TO ADMIT PT AT [facility]. FOR DISCHARGE TO THE [facility], FAX DISCHARGE INFORMATION TO THE [facility] AT [phone]; NURSE REPORT TO BE CALLED TO THE [facility] AT [phone]. PT WILL TRANSPORT VIA AMBULANCE. TAMIKO Patterson. DCP- Discharge Planning Updated by [id number]: Josue Melton on 03/01/18 8:[address] Patient Name: CATERINA STEWART Encounter No: [id number] : 1970 Primary Insurance: [facility] MEDICARE HMO or PPO Anticipated DC Date: Planned Disposition: Nursing Facility [facility] Cert External Planned Provider: [facility], BUSINESS DEVELOPMENT DIRECTOR CARE MEDICAID BED DCP follow-up note: CM REVIEWED CHART, NOTES INDICATE PT IS FROM THE [facility] WITH [facility] WITH PLANS TO TURN TO THE [facility] WITH HOSPICE SERVICES. CM FAXED UPDATE TO THE [facility] VIA [employer] AT [phone]. CM FAXED UPDATE TO [facility] AT [phone]. FOR DISCHARGE, NOTIFY [facility] AT [phone], FAX DISCHARGE INFORMATION TO [facility] AT [phone]. [facility] TO ADMIT PT AT THE [facility]. FOR DISCHARGE TO THE [facility], FAX DISCHARGE INFORMATION TO THE [facility] AT [phone]; NURSE REPORT TO BE CALLED TO THE [facility] AT [phone]. PT WILL TRANSPORT VIA AMBULANCE. TAMIKO Patterson MANAGEMENT DCP- Discharge Planning Updated by [id number]: Kathia Wright on 02/09/18 1:[address] Patient Name: CATERINA STEWART Admission Status: ER Accout number: [id number] Admission Date: 02-08-2018 : 1970 Admission Diagnosis: Attending: PERCY DONOVAN Current LOS: 1 Anticipated DC Date: Planned Disposition: Hospice Medical Facility Primary Insurance: [facility] MEDICARE HMO or PPO Discharge Planning Comments: CM MET WITH PATIENT ABOUT DC PLANNING/NEEDS. STATES SHE IS CURRENTLY AT THE [facility] ON HOSPICE. CM WILL CALL AND VERIFY INFORMATION. PATIENT IS HERE FOR PNEUMONIA. PATIENT STATES NO NEEDS AT TIME OF DC AND THAT HER PLAN IS TO GO BACK TO THE [facility] BY AMBULANCE. CM WILL FOLLOW AND ASSIST NEEDED WITH DC PLANNING/NEEDS. Row Boss: Kathia Wright Appended by Kathia Wright on 02/09/2018 14:26 END POLISHER: SPOKE WITH GÉNESIS AT [facility] AT THE [facility] AND HE STATED THEY WILL PICK HER BACK UP WHEN DISCHARGED. CM OR NURSE TO LET THEM KNOW WHEN PATIENT IS DC'D. CALL GÉNESIS AT [phone] WHEN PATIENT IS BEING DC'D FROM HOSPITAL. DCPIA - Discharge Planning Initial Assessment Updated by [id number]: Kathia Adriana on 02/09/18 11:19 am * Is the patient Alert and Oriented? Yes * PCP VENUS * Pharmacy THROUGH [facility] * Preadmission Environment Hospice * Facility Name [facility] * ADLs Total Dependent * Equipment Hospital Bed Oxygen Trach Care Supplies Wheelchair * List name and contact numbers for known caregivers / representatives who currently or will assist patient after discharge: IBAN QUIROZ, * Community resources currently utilized Other * Please name any agencies selected above. [facility] * Additional services required to return to the preadmission environment? No * Can the patient safely return to the preadmission environment? Yes * Has this patient been hospitalized within the prior 30 days at any hospital? No External Providers External Provider: Gricel Lund [facility] Next Contact Date: 03/13/2018 Service Request Date: Service Type: Resolution: Reviewer: Comments: Coverage Notice Reviewer: [id number] - Josue Melton Notice Issued Date-Time: 03/09/2018 16:45 Notice Type: IM Discharge Notice Notice Delivered To: Patient Relationship to Patient: Ice Cream Dipper Name: Delivery Method: HAND - Hand Delivered Quin Days: Prior Verbal Notification: Recipient Understood Notice: Yes Recipient Signature: Yes Med Rec Note Co-signed by Attending: Coverage Notice Comment: Last DP export: 03/12/18 12:29 pm Patient Name: CATERINA STEWART Page 31928 at 1010 All edits/amendments must be made on the electronic document DICTATION DATE: 03/13/18 1010 METER TESTER POLYPHASE: KOBE 03/13/18 1010 RPT#: [id number] DC DATE: STATUS: ADM IN [facility] [address] [place] [address] END OF REPORT
--- NOTE | 2018-03-13 10:29 | MORECARE ---
CASE MANAGEMENT DISCHARGE SUMMARY PATIENT: CATERINA STEWART UNIT: [id number] ADM DATE: 02/08/18 AGE: 47 : 66 SEX: F ROOM/BED: D.5445 AUTHOR: RACHELLE,DOC PHYSICIAN: REFERRING PHYSICIAN: PERCY DONOVAN MD DATE OF SERVICE: 03/13/18 Discharge Plan Patient Name: CATERINA STEWART Facility: [facility]:[place] : 1970 Planned Disposition: Intake Worker Acute Care Facility Anticipated Discharge Date: 03/14/18 Discharge Date: Expected LOS: 34 Initial Reviewer: [id number] Initial Review Date: 02/09/2018 Generated: 03/13/18 11:28 am Comments DCP- Discharge Planning Updated by [id number]: Josue Melton on 03/09/18 4:[address] Patient Name: CATERINA STEWART Encounter No: [id number] : 1970 [place] [facility] [place] Anticipated DC Date: 03-09-2018 Planned Disposition: Nursing Facility [facility] Cert External Planned Provider: Nursing Facility [facility] Cert External Planned Provider: [facility], LONG TERM CARE MEDICAID BED DCP follow-up note: CM RECEIVED DISCHARGE ORDER, SPOKE TO PT IN ROOM WHO REPORTS WANTING TO GO HOME TO THE [facility] AND WANTS HOSPICE SERVICES RESTARTED WITH [facility]. PT REPORTS HOSPICE NEEDS TO BRING HER BED BACK TO THE [facility]. IMPORTANT MESSAGE FROM MEDICARE PROVIDED AND EXPLAINED. CM FAXED DISCHARGE INFORMATION TO THE [facility] VIA [facility] AT [phone]. CM NOTIFIED [facility] OF DISCHARGE AT [phone]. CM NOTIFIED [facility] AT [phone] WHO INFORMED CM THAT PT HAD REVOKED HOSPICE AND WILL NEED NEW ORDER FOR EVALUATION AND ADMIT TO HOSPICE. CM RECEIVED CALL FROM [facility] WHO INFORMED CM THAT HOSPICE HAD PT'S MATTRESS PICKED UP. CM NOTIFIED [facility] THAT PT WILL NEED HER MATTRESS BACK AT FACILITY. CM FAXED DISCHARGE INFORMATION TO [facility] AT [phone]. CM RECEIVED CALL FROM [facility] OF [facility] WHO SPOKE TO [facility] OF THE [facility], THE [facility] DOES NOT FEEL COMFORTABLE ADMITTING PT ON 15 LITERS OXYGEN. [facility] WILL SPEAK TO HOSPICE NURSE REGARDING POSSIBLE INPATIENT HOSPICE EVALUATION. BEDSIDE NURSE NOTIFIED. THE [facility] WILL NOT ACCEPT PT BACK ON 15 LITERS OXYGEN. CM RECEIVED CALL FROM [facility] OF [facility] WHO INFORMED CM THAT PT IS NOT LIKELY GOING TO QUALIFY FOR INPATIENT HOSPICE FOR ONLY THE OXYGEN NEED. PT WILL NEED TO BE WEANED FROM HIGH OXYGEN NEED IF POSSIBLE. [facility] OF [facility] WILL FOLLOW UP TOMORROW TO CHECK ON PT'S STATUS IN HOSPITAL. JOSUE MELTON CASE MANAGEMENT DCP- Discharge Planning Updated by [id number]: Josue Melton on 03/07/18 9:[address] Patient Name: CATERINA STEWART Encounter No: [id number] : 1970 Primary [place] [facility] [place] Anticipated DC Date: Planned Disposition: Nursing Facility [facility] Cert External Planned Provider: [facility], LONG TERM CARE MEDICAID BED DCP follow-up note: CM FAXED UPDATE TO THE [facility] VIA [facility] AT [phone].. FOR DISCHARGE, NOTIFY [facility] AT [phone], FAX DISCHARGE INFORMATION TO [facility] AT [phone]. [facility] TO ADMIT PT AT THE [facility] FOR DISCHARGE TO THE [facility], FAX DISCHARGE INFORMATION TO THE [facility] AT [phone]; NURSE REPORT TO BE CALLED TO THE [facility] AT [phone]. PT WILL TRANSPORT VIA AMBULANCE. TAMIKO Patterson. DCP- Discharge Planning Updated by [id number]: Josue Melton on 03/05/18 3:[address] Patient Name: CATERINA STEWART Encounter No: [id number] : 1970 Primary Insurance: [employer] MEDICARE HMO or PPO Anticipated DC Date: Planned Disposition: Nursing Facility [facility] Cert External Planned Provider: [facility], LONG TERM CARE MEDICAID BED DCP follow-up note: CM FAXED UPDATE TO [facility] VIA [facility] AT [phone].. FOR DISCHARGE, NOTIFY [facility] AT [phone], FAX DISCHARGE INFORMATION TO [facility] AT [phone]. [facility] TO ADMIT PT AT THE [facility]. FOR DISCHARGE TO THE [facility], FAX DISCHARGE INFORMATION TO [facility] AT [phone]; NURSE REPORT TO BE CALLED TO THE [facility] AT [phone]. PT WILL TRANSPORT VIA AMBULANCE. TAMIKO Patterson MANAGEMENT. DCP- Discharge Planning Updated by [id number]: Josue Melton on 03/01/18 8:[address] Patient Name: CATERINA STEWART Encounter No: [id number] : 1970 Primary Insurance: [facility] [place] Anticipated DC Date: Planned Disposition: Nursing Facility [facility] Cert External Planned Provider: [facility], [employer] CARE MEDICAID BED DCP follow-up note: CM REVIEWED CHART, NOTES INDICATE PT IS FROM THE [facility] WITH [facility] WITH PLANS TO TURN TO THE [facility] WITH HOSPICE SERVICES. CM FAXED UPDATE TO THE [facility] VIA [facility] AT [phone]. CM FAXED UPDATE TO [facility] AT [phone]. FOR DISCHARGE, NOTIFY [facility] AT [phone], FAX DISCHARGE INFORMATION TO [facility] AT [phone]. [facility] TO ADMIT PT AT THE [facility]. FOR DISCHARGE TO THE [facility], FAX DISCHARGE INFORMATION TO THE [facility] AT [phone]; NURSE REPORT TO BE CALLED TO THE [facility] AT [phone]. PT WILL TRANSPORT VIA AMBULANCE. TAMIKO Patterson MANAGEMENT DCP- Discharge Planning Updated by [id number]: Kathia Wright on 02/09/18 1:[address] Patient Name: CATERINA STEWART Admission Status: ER Accout number: [id number] Admission Date: 02-08-2018 : 1970 Admission Diagnosis: Attending: PERCY DONOVAN Current LOS: 1 Anticipated DC Date: Planned Disposition: Hospice Medical Facility Primary [place] [facility] [place] Discharge Planning Comments: CM MET WITH PATIENT ABOUT DC PLANNING/NEEDS. STATES SHE IS CURRENTLY AT THE [facility] ON HOSPICE. CM WILL CALL AND VERIFY INFORMATION. PATIENT IS HERE FOR PNEUMONIA. PATIENT STATES NO NEEDS AT TIME OF DC AND THAT HER PLAN IS TO GO BACK TO THE [facility] BY AMBULANCE. CM WILL FOLLOW AND ASSIST NEEDED WITH DC PLANNING/NEEDS. Head Grower: Kathia Wright Appended by Kathia Wright on 02/09/2018 14:26 VIBRATOR EQUIPMENT TESTER: SPOKE WITH G[facility]NESIS AT [facility] AT THE [facility] AND HE STATED THEY WILL PICK HER BACK UP WHEN DISCHARGED. CM OR NURSE TO LET THEM KNOW WHEN PATIENT IS DC'D. CALL G[facility]NESIS AT [phone] WHEN PATIENT IS BEING DC'D FROM HOSPITAL. DCPIA - Discharge Planning Initial Assessment Updated by [id number]: Kathia Adriana on 02/09/18 11:19 am * Is the patient Alert and Oriented? Yes * PCP [facility] * Pharmacy THROUGH [facility] * Preadmission Environment Hospice * Facility Name [facility] * ADLs Total Dependent * Equipment Hospital Bed Oxygen Trach Care Supplies Wheelchair * List name and contact numbers for known caregivers / representatives who currently or will assist patient after discharge: IBAN QUIROZ, * Community resources currently utilized Other * Please name any agencies selected above. [facility] * Additional services required to return to the preadmission environment? No * Can the patient safely return to the preadmission environment? Yes * Has this patient been hospitalized within the prior 30 days at any hospital? No Coverage Notice Reviewer: [id number] Paulino Melton Notice Issued Date-Time: 03/09/2018 16:45 Notice Type: IM Discharge Notice Notice Delivered To: Patient Relationship to Patient: Net Mender Name: Delivery Method: HAND - Hand Delivered Quin Days: Prior Verbal Notification: Recipient Understood Notice: Yes Recipient Signature: Yes Med Rec Note Co-signed by Attending: Coverage Notice Comment: Last DP export: 03/13/18 9:10 am Patient Name: CATERINA STEWART Page 14996 at 1029 All edits/amendments must be made on the electronic document DICTATION DATE: 03/13/18 1028 DENTAL APPLIANCE FIXER: KOBE 03/13/18 1028 RPT#: [id number] DC DATE: STATUS: ADM IN [facility] [address] [place] [address] END OF REPORT
--- NOTE | 2018-03-13 10:37 | MORECARE ---
CASE MANAGEMENT DISCHARGE SUMMARY PATIENT: CATERINA STEWART UNIT: [id number] ADM DATE: 02/08/18 AGE: 47 : 66 SEX: F ROOM/BED: D.2105 AUTHOR: LEONORA BUSH PHYSICIAN: REFERRING PHYSICIAN: PERCY DONOVAN MD DATE OF SERVICE: 03/13/18 Discharge Plan Patient Name: CATERINA STEWART Facility: [facility]:[place] : 1970 Planned Disposition: Merchandise Planning Manager Acute Care Facility Anticipated Discharge Date: 03/14/18 Discharge Date: Expected LOS: 34 Initial Reviewer: [id number] Initial Review Date: 02/09/2018 Generated: 03/13/18 11:37 am Comments DCP- Discharge Planning Updated by [id number]: Josue Melton on 03/13/18 9:[address] Patient Name: CATERINA STEWART Encounter No: [id number] : 1970 Primary Insurance: [facility] MEDICARE HMO or PPO Anticipated DC Date: 03-14-2018 Planned Disposition: Merchandise Planning Manager Acute Care Facility External [facility] DCP follow-up note: CM RECEIVED ORDER FOR LTACH EVALUATION. CM SPOKE TO PT IN ROOM, PT IS WILLING FOR LTACH EVALUATION AND PLACEMENT IN [place] AT [facility] SHE HAS BEEN THERE IN THE PAST. CM CALLED [facility], , SPOKE TO ASHU WHO WILL EVALUATE PT FOR ADMISSION. [facility] [phone]. CM WAITING ADMISSION DETERMINATION FROM [facility]. TAMIKO Patterson DCP- Discharge Planning Updated by [id number]: Josue Melton on 03/09/18 4:[address] Patient Name: CATERINA STEWART Encounter No: [id number] : 1970 Primary Insurance: [facility] MEDICARE HMO or PPO Anticipated DC Date: 03-09-2018 Planned Disposition: Nursing Facility [facility] Cert External Planned Provider: Nursing Facility [facility] Cert External Planned Provider: [facility] TERM CARE MEDICAID BED DCP follow-up note: CM RECEIVED DISCHARGE ORDER, SPOKE TO PT IN ROOM WHO REPORTS WANTING TO GO HOME TO THE [facility] AND WANTS HOSPICE SERVICES RESTARTED WITH [facility]. PT REPORTS HOSPICE NEEDS TO BRING HER BED BACK TO THE [facility]. IMPORTANT MESSAGE FROM MEDICARE PROVIDED AND EXPLAINED. CM FAXED DISCHARGE INFORMATION TO THE [facility] VIA [facility] AT [phone]. CM NOTIFIED [facility] OF DISCHARGE AT [phone]. CM NOTIFIED [facility] AT [phone] WHO INFORMED CM THAT PT HAD REVOKED HOSPICE AND WILL NEED NEW ORDER FOR EVALUATION AND ADMIT TO HOSPICE. CM RECEIVED CALL FROM [facility] WHO INFORMED CM THAT HOSPICE HAD PT'S MATTRESS PICKED UP. CM NOTIFIED [facility] THAT PT WILL NEED HER MATTRESS BACK AT FACILITY. CM FAXED DISCHARGE INFORMATION TO [facility] AT [phone]. CM RECEIVED CALL FROM [facility] OF [facility] WHO SPOKE TO ISACC OF THE [facility], THE [facility] DOES NOT FEEL COMFORTABLE ADMITTING PT ON 15 LITERS OXYGEN. G[facility]NESIS WILL SPEAK TO HOSPICE NURSE REGARDING POSSIBLE INPATIENT HOSPICE EVALUATION. BEDSIDE NURSE NOTIFIED. THE [facility] WILL NOT ACCEPT PT BACK ON 15 LITERS OXYGEN. CM RECEIVED CALL FROM GÉNESIS OF [facility] WHO INFORMED CM THAT PT IS NOT LIKELY GOING TO QUALIFY FOR INPATIENT HOSPICE FOR ONLY THE OXYGEN NEED. PT WILL NEED TO BE WEANED FROM HIGH OXYGEN NEED IF POSSIBLE. [facility] OF [facility] WILL FOLLOW UP TOMORROW TO CHECK ON PT'S STATUS IN HOSPITAL. JOSUE MELTON, CASE MANAGEMENT DCP- Discharge Planning Updated by [id number]: Josue Melton on 03/07/18 9:[address] Patient Name: CATERINA STEWART Encounter No: [id number] : 1970 Primary Insurance: [facility] MEDICARE HMO or PPO Anticipated DC Date: Planned Disposition: Nursing Facility [facility] Cert External Planned Provider: [facility], [facility] CARE MEDICAID BED DCP follow-up note: CM FAXED UPDATE TO THE [facility] VIA [facility] AT [phone].. FOR DISCHARGE, NOTIFY [facility] AT [phone], FAX DISCHARGE INFORMATION TO [facility] AT [phone]. [facility] TO ADMIT PT AT THE [facility] FOR HOSPICE. FOR DISCHARGE TO [facility], FAX DISCHARGE INFORMATION TO THE [facility] AT [phone]; NURSE REPORT TO BE CALLED TO THE [facility] AT [phone]. PT WILL TRANSPORT VIA AMBULANCE. TAMIKO Patterson MANAGEMENT. DCP- Discharge Planning Updated by [id number]: Josue Melton on 03/05/18 3:[address] Patient Name: CATERINA STEWART Encounter No: [id number] : 1970 Primary Insurance: [facility] MEDICARE HMO or PPO Anticipated DC Date: Planned Disposition: Nursing Facility [facility] Cert External Planned Provider: [facility], LONG TERM CARE MEDICAID BED DCP follow-up note: CM FAXED UPDATE TO THE [facility] VIA [facility] AT [phone].. FOR DISCHARGE, NOTIFY [facility] AT [phone], FAX DISCHARGE INFORMATION TO [facility] AT [phone]. [facility] TO ADMIT PT AT THE [facility]. FOR DISCHARGE TO THE [facility], FAX DISCHARGE INFORMATION TO THE [facility] AT [phone]; NURSE REPORT TO BE CALLED TO THE [facility] AT [phone]. PT WILL TRANSPORT VIA AMBULANCE. TAMIKO Patterson MANAGEMENT. DCP- Discharge Planning Updated by [id number]: Josue Melton on 03/01/18 8:[address] Patient Name: CATERINA STEWART Encounter No: [id number] : 1970 Primary Insurance: [facility] MEDICARE HMO or PPO Anticipated DC Date: Planned Disposition: Nursing Facility [facility] Cert External Planned Provider: [facility], LONG TERM CARE MEDICAID BED DCP follow-up note: CM REVIEWED CHART, NOTES INDICATE PT IS FROM THE [facility] WITH [facility] WITH PLANS TO TURN TO THE [facility] WITH HOSPICE SERVICES. CM FAXED UPDATE TO THE [facility] VIA [facility] AT [phone]. CM FAXED UPDATE TO [facility] AT [phone]. FOR DISCHARGE, NOTIFY [facility] AT [phone], FAX DISCHARGE INFORMATION TO [facility] AT [phone]. [facility] TO ADMIT PT AT THE [facility]. [facility], FAX DISCHARGE INFORMATION TO THE [facility] AT [phone]; NURSE REPORT TO BE CALLED TO THE [facility] AT [phone]. PT WILL TRANSPORT VIA AMBULANCE. Josue Melton, CASE MANAGEMENT DCP- Discharge Planning Updated by [id number]: Katiha Wright on 02/09/18 1:[address] Patient Name: CATERINA STEWART Admission Status: ER Accout number: [id number] Admission Date: 02-08-2018 : 1970 Admission Diagnosis: Attending: PERCY DONOVAN Current LOS: 1 Anticipated DC Date: Planned Disposition: Hospice Medical Facility Primary Insurance: [facility] MEDICARE HMO or PPO Discharge Planning Comments: CM MET WITH PATIENT ABOUT DC PLANNING/NEEDS. STATES SHE IS CURRENTLY AT THE [facility] ON HOSPICE. CM WILL CALL AND VERIFY INFORMATION. PATIENT IS HERE FOR PNEUMONIA. PATIENT STATES NO NEEDS AT TIME OF DC AND THAT HER PLAN IS TO GO BACK TO THE [facility] BY AMBULANCE. CM WILL FOLLOW AND ASSIST NEEDED WITH DC PLANNING/NEEDS. Hand Sewer Shoes: Kathia Wright Appended by Kathia Wright on 02/09/2018 14:26 FAN BLADE ALIGNER: SPOKE WITH GÉNESIS AT [facility] AT THE [facility] AND HE STATED THEY WILL PICK HER BACK UP WHEN DISCHARGED. CM OR NURSE TO LET THEM KNOW WHEN PATIENT IS DC'D. CALL G[facility]NES[facility] AT [phone] WHEN PATIENT IS BEING DC'D FROM HOSPITAL. DCPIA - Discharge Planning Initial Assessment Updated by [id number]: Kathia Wright on 02/09/18 11:19 am * Is the patient Alert and Oriented? Yes * PCP VENUS * Pharmacy THROUGH [facility] * Preadmission Environment Hospice * Facility Name [facility] * ADLs Total Dependent * Equipment Hospital Bed Oxygen Trach Care Supplies Wheelchair * List name and contact numbers for known caregivers / representatives who currently or will assist patient after discharge: RICHIE, DAUGHTER, * Community resources currently utilized Other * Please name any agencies selected above. [facility] * Additional services required to return to the preadmission environment? No * Can the patient safely return to the preadmission environment? Yes * Has this patient been hospitalized within the prior 30 days at any hospital? No Coverage Notice Reviewer: [id number] - Josue Melton Notice Issued Date-Time: 03/09/2018 16:45 Notice Type: IM Discharge Notice Notice Delivered To: Patient Relationship to Patient: Coffee Maker Name: Delivery Method: HAND - Hand Delivered Quin Days: Prior Verbal Notification: Recipient Understood Notice: Yes Recipient Signature: Yes Med Rec Note Co-signed by Attending: Coverage Notice Comment: Last DP export: 03/13/18 9:29 am Patient Name: CATERINA STEWART Page [id number] at 1037 All edits/amendments must be made on the electronic document DICTATION DATE: 03/13/18 1036 WRITER TECHNICAL PUBLICATIONS: KOBE 03/13/18 1036 RPT#: [id number] DC DATE: STATUS: ADM IN [facility] [address] [place] [address] END OF REPORT
[2018-03-13 11:43] VITALS: BP 115/56
[2018-03-13 16:08] VITALS: BP 113/58
--- NOTE | 2018-03-13 19:20 | NUR ---
RESUMING CARE.PT LAYING IN BED A&O PT HAS TRACH IN PLACE WITH 15L OF OXYGEN , LEFT CVL. DOWNS IN PLACE PT ON ISOLATION PRECAUTIONS FOR MRSA NO C/O DISTRESS AT THIS TIME CALL LIGHT IN REACH WILL CONTINUE TO MONITOR
[2018-03-13 20:00] VITALS: BP 126/63
[2018-03-14] VITALS: BP 151/73
--- NOTE | 2018-03-14 03:05 | NUR ---
PATIENT REMAINS ON DROPLET ISOLATION. TRACH COLLAR REMAINS ON, AT 15L. BED IN THE LOW POSITION WITH SIDERAILS X2.
[2018-03-14 04:00] VITALS: BP 144/68
--- NOTE | 2018-03-14 07:31 | MORECARE ---
CASE MANAGEMENT DISCHARGE SUMMARY PATIENT: CATERINA STEWART UNIT: [id number] ADM DATE: 02/08/18 AGE: 47 : 66 SEX: F ROOM/BED: D.2105 AUTHOR: LEONORA BUSH PHYSICIAN: REFERRING PHYSICIAN: PERCY DONOVAN MD DATE OF SERVICE: 03/14/18 Discharge Plan Patient Name: CATERINA STEWART Facility: [facility]:[place] : 1970 Planned Disposition: [facility] Care Facility Anticipated Discharge Date: 03/14/18 Discharge Date: Expected LOS: 34 Initial Reviewer: [id number] Initial Review Date: 02/09/2018 Generated: 03/14/18 8:31 am Comments DCP- Discharge Planning Updated by [id number]: Josue Melton on 03/13/18 9:[address] Patient Name: CATERINA STEWART Encounter No: [id number] : 1970 Primary Insurance: [facility] MEDICARE HMO or PPO Anticipated DC Date: 03-14-2018 Planned Disposition: [facility] Acute Care Facility External [facility] D[facility] follow-up note: CM RECEIVED ORDER FOR LTACH EVALUATION. CM SPOKE TO PT IN ROOM, PT IS WILLING FOR LTACH EVALUATION AND PLACEMENT IN [place] AT [facility] SHE HAS BEEN THERE IN THE PAST. CM CALLED [facility], , SPOKE TO ASHU WHO WILL EVALUATE PT FOR ADMISSION. CM [facility] AT [phone]. CM WAITING ADMISSION DETERMINATION FROM [facility] FOR SHUTDOWN COORDINATOR ACUTE CARE HOSPITAL SERVICES. Josue Melton CASE ANDREW DCP- Discharge Planning Updated by [email or web address]: Josue Melton on 03/09/18 4:[address] Patient Name: CATERINA STEWART Encounter No: [id number] : 1970 Primary Insurance: [facility] MEDICARE HMO or PPO Anticipated DC Date: 03-09-2018 Planned Disposition: Nursing Facility [facility] Cert External Planned Provider: Nursing Facility [facility] Cert External Planned Provider: [facility] TERM CARE MEDICAID BED DCP follow-up note: CM RECEIVED DISCHARGE ORDER, SPOKE TO PT IN ROOM WHO REPORTS WANTING TO GO HOME TO THE [facility] AND WANTS HOSPICE SERVICES RESTARTED WITH [facility]. PT REPORTS HOSPICE NEEDS TO BRING HER BED BACK TO THE [facility]. IMPORTANT MESSAGE FROM MEDICARE PROVIDED AND EXPLAINED. CM FAXED DISCHARGE INFORMATION TO THE [facility] [employer]IA [employer] AT [phone]. CM NOTIFIED [facility] OF DISCHARGE AT [phone]. CM NOTIFIED [facility] AT [phone] WHO INFORMED CM THAT PT HAD REVOKED HOSPICE AND WILL NEED NEW ORDER FOR EVALUATION AND ADMIT TO HOSPICE. CM RECEIVED CALL FROM [facility] WHO INFORMED CM THAT HOSPICE HAD PT'S MATTRESS PICKED UP. CM NOTIFIED [facility]OSPICE THAT PT WILL NEED HER MATTRESS BACK AT FACILITY. CM FAXED DISCHARGE INFORMATION TO [facility] AT [phone]. CM RECEIVED CALL FROM G[facility]NESIS OF [facility] WHO SPOKE TO ISACC OF THE [facility], THE [facility] DOES NOT FEEL COMFORTABLE ADMITTING PT ON 15 LITERS OXYGEN. G[facility]IS WILL SPEAK TO HOSPICE NURSE REGARDING POSSIBLE INPATIENT HOSPICE EVALUATION. BEDSIDE NURSE NOTIFIED. THE [facility] WILL NOT ACCEPT PT BACK ON 15 LITERS OXYGEN. CM RECEIVED CALL FROM [facility]IS OF [facility] WHO INFORMED CM THAT PT IS NOT LIKELY GOING TO QUALIFY FOR INPATIENT HOSPICE FOR ONLY THE OXYGEN NEED. PT WILL NEED TO BE WEANED FROM HIGH OXYGEN NEED IF POSSIBLE. [facility] OF [facility] WILL FOLLOW UP TOMORROW TO CHECK ON PT'S STATUS IN HOSPITAL. JOSUE MELTON, CASE MANAGEMENT DCP- Discharge Planning Updated by [id number]: Josue Melton on 03/07/18 9:[address] Patient Name: CATERINA STEWART Encounter No: [id number] : 1970 Primary Insurance: [facility] MEDICARE HMO or PPO Anticipated DC Date: Planned Disposition: Nursing Facility [facility] Cert External Planned Provider: [facility], SHUTDOWN COORDINATOR CARE MEDICAID BED DCP follow-up note: CM FAXED UPDATE TO THE [facility] [employer]IA [employer] AT [phone].. FOR DISCHARGE, NOTIFY [facility] AT [phone], FAX DISCHARGE INFORMATION TO [facility] AT [phone]. [facility] TO ADMIT PT AT THE [facility] FOR HOSPICE. FOR DISCHARGE TO THE [facility], FAX DISCHARGE INFORMATION TO THE [facility] AT [phone]; NURSE REPORT TO BE CALLED TO THE [facility] AT [phone]. PT WILL TRANSPORT VIA AMBULANCE. TAMIKO Patterson MANAGEMENT. DCP- Discharge Planning Updated by [id number]: Josue Melton on 03/05/18 3:[address] Patient Name: CATERINA STEWART Encounter No: [id number] : 1970 Primary Insurance: [facility] MEDICARE HMO or PPO Anticipated DC Date: Planned Disposition: Nursing Facility [facility] Cert External Planned Provider: [facility], LONG TERM CARE MEDICAID BED DCP follow-up note: CM FAXED UPDATE TO THE [facility]IA [employer] AT [phone].. FOR DISCHARGE, NOTIFY [facility] AT [phone], FAX DISCHARGE INFORMATION TO [facility] AT [phone]. [facility] TO ADMIT PT AT THE [facility] FOR DISCHARGE TO THE [facility], FAX DISCHARGE INFORMATION TO THE [facility] AT [phone]; NURSE REPORT TO BE CALLED TO THE [facility] AT [phone]. PT WILL TRANSPORT VIA AMBULANCE. TAMIKO Patterson MANAGEMENT. DCP- Discharge Planning Updated by [id number]: Josue Melton on 03/01/18 8:[address] Patient Name: CATERINA STEWART Encounter No: [id number] : 1970 Primary Insurance: [facility] MEDICARE HMO or PPO Anticipated DC Date: Planned Disposition: Nursing Facility [facility] Cert External Planned Provider: [facility], LONG TERM CARE MEDICAID BED DCP follow-up note: CM REVIEWED CHART, NOTES INDICATE PT IS FROM THE [facility] WITH [facility] WITH PLANS TO TURN TO THE [facility] WITH HOSPICE SERVICES. CM FAXED UPDATE TO THE [facility]IA [employer] AT [phone]. CM FAXED UPDATE TO [facility] AT [phone]. FOR DISCHARGE, NOTIFY [facility] AT [phone], FAX DISCHARGE INFORMATION TO [facility] AT [phone]. [facility] TO ADMIT PT AT THE [facility], FAX DISCHARGE INFORMATION TO THE [facility] AT [phone]; NURSE REPORT TO BE CALLED TO THE [facility] AT [phone]. PT WILL TRANSPORT VIA AMBULANCE. Josue Melton, CASE MANAGEMENT DCP- Discharge Planning Updated by [id number]: Kathia Wright on 02/09/18 1:[address] Patient Name: CATERINA STEWART Admission Status: ER Accout number: [id number] Admission Date: 02-08-2018 : 1970 Admission Diagnosis: Attending: PERCY DONOVAN Current LOS: 1 Anticipated DC Date: Planned Disposition: Hospice Medical Facility Primary Insurance: [facility] MEDICARE HMO or PPO Discharge Planning Comments: CM MET WITH PATIENT ABOUT DC PLANNING/NEEDS. STATES SHE IS CURRENTLY AT THE [facility] ON HOSPICE. CM WILL CALL AND VERIFY INFORMATION. PATIENT IS HERE FOR PNEUMONIA. PATIENT STATES NO NEEDS AT TIME OF DC AND THAT HER PLAN IS TO GO BACK TO THE [facility] BY AMBULANCE. CM WILL FOLLOW AND ASSIST NEEDED WITH DC PLANNING/NEEDS. Housing And Residence Life Director: Kathia Wright Appended by Kathia Wright on 02/09/2018 14:26 SPECIAL EDUCATION ASSOCIATE: SPOKE WITH G[facility]NESIS AT [facility] AT THE [facility] AND HE STATED THEY WILL PICK HER BACK UP WHEN DISCHARGED. CM OR NURSE TO LET THEM KNOW WHEN PATIENT IS DC'D. CALL G[facility] AT [phone] WHEN PATIENT IS BEING DC'D FROM HOSPITAL. DCPIA - Discharge Planning Initial Assessment Updated by [id number]: Kathia Wright on 02/09/18 11:19 am * Is the patient Alert and Oriented? Yes * PCP [facility] * Pharmacy THROUGH THE [facility] * Preadmission Environment Hospice * Facility Name [facility] * ADLs Total Dependent * Equipment Hospital Bed Oxygen Trach Care Supplies Wheelchair * List name and contact numbers for known caregivers / representatives who currently or will assist patient after discharge: RICHIE, DAUGHTER, * Community resources currently utilized Other * Please name any agencies selected above. [facility] * Additional services required to return to the preadmission environment? No * Can the patient safely return to the preadmission environment? Yes * Has this patient been hospitalized within the prior 30 days at any hospital? No Coverage Notice Reviewer: [id number] - Josue Melton Notice Issued Date-Time: 03/09/2018 16:45 Notice Type: IM Discharge Notice Notice Delivered To: Patient Relationship to Patient: X Ray Developing Machine Operator Name: Delivery Method: HAND - Hand Delivered Quin Days: Prior Verbal Notification: Recipient Understood Notice: Yes Recipient Signature: Yes Med Rec Note Co-signed by Attending: Coverage Notice Comment: Last DP export: 03/13/18 9:37 am Patient Name: CATERINA STEWART Page [id number] at 0731 All edits/amendments must be made on the electronic document DICTATION DATE: 03/14/18730 EVENT PROMOTIONS COORDINATOR: KOBE 03/14/18730 RPT#: [id number] DC DATE: STATUS: ADM IN [facility] [address] [place] [address] END OF REPORT
--- NOTE | 2018-03-14 07:33 | NUR ---
REPORT RECEIVED. WILL CONTINUE WITH POC. PT CURRENTLY LYING SEMI FOWLERS. CALL LIGHT W/I REACH. RR EVEN AND UNLABORED ON 36% TRACH COLLAR. NS INFUSING @K[facility] VIA L.SUBCLAVIAN CVL. PT IS RESTING AT THE MOMENT. FIRST STEP OVERLAY IN PLACE AND WORKING. DOWNS IN PLACE AND DRAINING. PT IS BEDFAST AND AAO. WILL CTM.
[2018-03-14 08:22] VITALS: BP 133/70
--- NOTE | 2018-03-14 09:59 | NUR ---
RESTS IN ISOLATION. RESP UL ON . CALL LIGHT IN REACH. WILL CONT. PLAN OF CARE.
--- NOTE | 2018-03-14 10:32 | MORECARE ---
CASE MANAGEMENT DISCHARGE SUMMARY PATIENT: CATERINA STEWART UNIT: [id number] ADM DATE: 02/08/18 AGE: 47 : 66 SEX: F ROOM/BED: D.2105 AUTHOR: LEONORA BUSH PHYSICIAN: REFERRING PHYSICIAN: PERCY DONOVAN MD DATE OF SERVICE: 03/14/18 Discharge Plan Patient Name: CATERINA STEWART Facility: [facility]:[place] : 1970 Planned Disposition: [facility] Anticipated Discharge Date: 03/14/18 Discharge Date: Expected LOS: 34 Initial Reviewer: [id number] Initial Review Date: 02/09/2018 Generated: 03/14/18 11:32 am Comments DCP- Discharge Planning Updated by [id number]: Josue Melton on 03/13/18 9:[address] Patient Name: CATERINA STEWART Encounter No: [id number] : 1970 [place] Insurance[place] [facility] [place] Anticipated DC Date: 03-14-2018 Planned Disposition: [facility] External Planned Provider[facility] DCP follow-up note: CM RECEIVED ORDER FOR LTACH EVALUATION. CM SPOKE TO PT IN ROOM, PT IS WILLING FOR LTACH EVALUATION AND PLACEMENT IN [place] AT [facility] SHE HAS BEEN THERE IN THE PAST. CM CALLED [facility], , SPOKE TO ASHU WHO WILL EVALUATE PT FOR ADMISSION. CM [facility] AT [phone]. CM WAITING ADMISSION DETERMINATION FROM [facility] WATER TECHNICIAN ACUTE CARE HOSPITAL SERVICES. Josue Melton CASE ANDREW DCP- Discharge Planning Updated by [id number]: Josue Melton on 03/09/18 4:[address] Patient Name: CATERINA STEWART Encounter No: [id number] : 1970 [place] [facility] [place] Anticipated DC Date: 03-09-2018 Planned Disposition: Nursing Facility [facility] Cert External Planned Provider: Nursing Facility [facility] Cert External Planned Provider: [facility] TERM CARE MEDICAID BED DCP follow-up note: CM RECEIVED DISCHARGE ORDER, SPOKE TO PT IN ROOM WHO REPORTS WANTING TO GO HOME TO [facility] AND WANTS HOSPICE SERVICES RESTARTED WITH [facility]. PT REPORTS HOSPICE NEEDS TO BRING HER BED BACK TO [facility]. IMPORTANT MESSAGE FROM MEDICARE PROVIDED AND EXPLAINED. CM FAXED DISCHARGE INFORMATION TO [facility] [employer]IA [employer] AT [phone]. CM NOTIFIED [facility] OF DISCHARGE AT [phone]. CM NOTIFIED [facility] AT [phone] WHO INFORMED CM THAT PT HAD REVOKED HOSPICE AND WILL NEED NEW ORDER FOR EVALUATION AND ADMIT TO HOSPICE. CM RECEIVED CALL FROM [facility] WHO INFORMED CM THAT HOSPICE HAD PT'S MATTRESS PICKED UP. CM NOTIFIED [facility] HOSPICE THAT PT WILL NEED HER MATTRESS BACK AT FACILITY. CM FAXED DISCHARGE INFORMATION TO [facility] AT [phone]. CM RECEIVED CALL FROM GÉNESIS OF [facility] WHO SPOKE TO [facility] OF [facility], [facility] DOES NOT FEEL COMFORTABLE ADMITTING PT ON 15 LITERS OXYGEN. G[facility]IS WILL SPEAK TO HOSPICE NURSE REGARDING POSSIBLE INPATIENT HOSPICE EVALUATION. BEDSIDE NURSE NOTIFIED. THE [facility] WILL NOT ACCEPT PT BACK ON 15 LITERS OXYGEN. CM RECEIVED CALL FROM GÉNESIS OF [facility] WHO INFORMED CM THAT PT IS NOT LIKELY GOING TO QUALIFY FOR INPATIENT HOSPICE FOR ONLY THE OXYGEN NEED. PT WILL NEED TO BE WEANED FROM HIGH OXYGEN NEED IF POSSIBLE. G[facility]NESIS OF [facility] WILL FOLLOW UP TOMORROW TO CHECK ON PT'S STATUS IN HOSPITAL. JOSUE MELTON, CASE MANAGEMENT DCP- Discharge Planning Updated by [id number]: Josue Melton on 03/07/18 9:[address] Patient Name: CATERINA STEWART Encounter No: [id number] : 1970 [place] [facility] [place] Anticipated DC Date: Planned Disposition: Nursing Facility [facility] Cert External Planned Provider: [facility], [facility] MEDICAID BED DCP follow-up note: CM FAXED UPDATE TO [facility] [employer]IA [employer] AT [phone].. FOR DISCHARGE, NOTIFY [facility] AT [phone], FAX DISCHARGE INFORMATION TO [facility] AT [phone]. [facility] TO ADMIT PT AT [facility] FOR HOSPICE. FOR DISCHARGE TO [facility], FAX DISCHARGE INFORMATION TO [facility] AT [phone]; NURSE REPORT TO BE CALLED TO THE [facility] AT [phone]. PT WILL TRANSPORT VIA AMBULANCE. TAMIKO Patterson MANAGEMENT. DCP- Discharge Planning Updated by [id number]: Josue Melton on 03/05/18 3:[address] Patient Name: CATERINA STEWART Encounter No: [id number] : 1970 [place] [facility] [place] Anticipated DC Date: Planned Disposition: Nursing Facility [facility] Cert External Planned Provider: [facility], LONG TERM CARE MEDICAID BED DCP follow-up note: CM FAXED UPDATE TO [facility]IA [employer] AT [phone].. FOR DISCHARGE, NOTIFY [facility] AT [phone], FAX DISCHARGE INFORMATION TO [facility] AT [phone]. [facility] TO ADMIT PT AT THE [facility] FOR DISCHARGE TO THE [facility], FAX DISCHAR[facility] INFORMATION TO [facility] AT [phone]; NURSE REPORT TO BE CALLED TO THE [facility] AT [phone]. PT WILL TRANSPORT VIA AMBULANCE. TAMIKO Patterson MANAGEMENT. DCP- Discharge Planning Updated by [id number]: Josue Melton on 03/01/18 8:[address] Patient Name: CATERINA STEWART Encounter No: [id number] : 1970 [place] [facility] [place] Anticipated DC Date: Planned Disposition: Nursing Facility [facility] Cert External Planned Provider: [facility], LONG TERM CARE MEDICAID BED DCP follow-up note: CM REVIEWED CHART, NOTES INDICATE PT IS FROM [facility] WITH [facility] WITH PLANS TO TURN TO [facility] WITH HOSPICE SERVICES. CM FAXED UPDATE TO [facility] [employer] AT [phone]. CM FAXED UPDATE TO [facility] AT [phone]. FOR DISCHARGE, NOTIFY [facility] AT [phone], FAX DISCHARGE INFORMATION TO [facility] AT [phone]. [facility] TO ADMIT PT AT [facility]. [facility] TO THE [facility], FAX DISCHARGE INFORMATION TO [facility] AT [phone]; NURSE REPORT TO BE CALLED TO [facility] AT [phone]. PT WILL TRANSPORT VIA AMBULANCE. Josue Melton, CASE MANAGEMENT DCP- Discharge Planning Updated by [id number]: Kathia Wright on 02/09/18 1:[address] Patient Name: CATERINA STEWART Admission Status: ER Accout number: [id number] Admission Date: 02-08-2018 : 1970 Admission Diagnosis: Attending: PERCY DONOVAN Current LOS: 1 Anticipated DC Date: Planned Disposition: Hospice Medical Facility Primary [place] [facility] [place] Discharge Planning Comments: CM MET WITH PATIENT ABOUT DC PLANNING/NEEDS. STATES SHE IS CURRENTLY AT [facility] ON HOSPICE. CM WILL CALL AND VERIFY INFORMATION. PATIENT IS HERE FOR PNEUMONIA. PATIENT STATES NO NEEDS AT TIME OF DC AND THAT HER PLAN IS TO GO BACK TO [facility] BY AMBULANCE. CM WILL FOLLOW AND ASSIST NEEDED WITH DC PLANNING/NEEDS. Cork Slabs Sawyer: Kathia Wright Appended by Kathia Wright on 02/09/2018 14:26 IT SERVICE MANAGER: SPOKE WITH GÉNESIS AT [facility] AT [facility] AND HE STATED THEY WILL PICK HER BACK UP WHEN DISCHARGED. CM OR NURSE TO LET THEM KNOW WHEN PATIENT IS DC'D. CALL GÉNESIS AT [phone] WHEN PATIENT IS BEING DC'D FROM HOSPITAL. DCPIA - Discharge Planning Initial Assessment Updated by [email or web address]: Kathia Wright on 02/09/18 11:19 am * Is the patient Alert and Oriented? Yes * PCP [facility] * Pharmacy [facility]OUGH [facility] * Preadmission Environment Hospice * Facility Name [facility] * ADLs Total Dependent * Equipment Hospital Bed Oxygen Trach Care Supplies Wheelchair * List name and contact numbers for known caregivers / representatives who currently or will assist patient after discharge: RICHIE, DAUGHTER, * Community resources currently utilized Other * Please name any agencies selected above. [facility] * Additional services required to return to the preadmission environment? No * Can the patient safely return to the preadmission environment? Yes * Has this patient been hospitalized within the prior 30 days at any hospital? No Coverage Notice Reviewer: [id number] - Josue Melton Notice Issued Date-Time: 03/09/2018 16:45 Notice Type: IM Discharge Notice Notice Delivered To: Patient Relationship to Patient: Primer Expeditor And Drier Name: Delivery Method: HAND - Hand Delivered Quin Days: Prior Verbal Notification: Recipient Understood Notice: Yes Recipient Signature: Yes Med Rec Note Co-signed by Attending: Coverage Notice Comment: Last DP export: 03/14/18 6:31 am Patient Name: CATERINA STEWART Page [id number] at 1032 All edits/amendments must be made on the electronic document DICTATION DATE: 03/14/18 1031 CONDUCTOR AND ENGINEER: KOBE 03/14/18 1031 RPT#: [id number] DC DATE: STATUS: ADM IN [facility] [address] [place] [address] END OF REPORT
--- NOTE | 2018-03-14 10:47 | MORECARE ---
CASE MANAGEMENT DISCHARGE SUMMARY PATIENT: CATERINA STEWART UNIT: [id number] ADM DATE: 02/08/18 AGE: 47 : 66 SEX: F ROOM/BED: D.0325 AUTHOR: LEONORA BUSH PHYSICIAN: REFERRING PHYSICIAN: PERCY DONOVAN MD DATE OF SERVICE: 03/14/18 Discharge Plan Patient Name: CATERINA STEWART Facility: [facility]:[place] : 1970 Planned Disposition: Director Of Cardiac Cath Lab Acute Care Facility Anticipated Discharge Date: 03/14/18 Discharge Date: Expected LOS: 34 Initial Reviewer: [id number] Initial Review Date: 02/09/2018 Generated: 03/14/18 11:47 am Comments DCP- Discharge Planning Updated by [id number]: Tommy Huang on 03/14/18 9:[address] Patient Name: CATERINA STEWART Encounter No: [id number] : 1970 [place] [facility] [place] Anticipated DC Date: 03-14-2018 Planned Disposition: Director Of Cardiac Cath Lab Acute Care Facility External Planned Provider: TOYA GARRIDO [place] DCP follow-up note: CM RECEIVED CALL FROM [facility], . PT HAS BEEN ACCEPTED FOR OUTSIDE INSTALLER APPRENTICE ACUTE CARE AT [facility] BY DR. IWONA JAFFE. PT NOTIFIED AND IN AGREEMENT WITH DISCHARGE TO LTACH TODAY. IMPORTANT MESSAGE FROM MEDICARE PROVIDED AND EXPLAINED. MARGO YOUNG NOTIFIED AND WILL DISCHARGE TODAY. BEDSIDE NURSE AND ROLLER PRINT TENDER NURSE NOTIFIED. FOR DISCHARGE, FAX DISCHARGE INFORMATION TO [facility] AT [phone]. [facility] TO CALL CM WITH ROOM NUMBER. [facility] TO CALL BEDSIDE NURSE AT [place] FOR NURSE REPORT. PT TO TRANSPORT VIA AMBULANCE. TAMIKO Licona DCP- Discharge Planning Updated by [id number]: Tommy Huang on 03/13/18 9:[address] Patient Name: CATERINA STEWART Encounter No: [id number] : 1970 [place] [facility] [place] Anticipated DC Date: 03-14-2018 Planned Disposition: [facility]sp Acute Care Facility External Planned Provider: TOYA GARRIDO [place] DCP follow-up note: CM RECEIVED ORDER FOR LTACH EVALUATION. CM SPOKE TO PT IN ROOM, PT IS WILLING FOR LTACH EVALUATION AND PLACEMENT IN [place] AT [facility] SHE HAS BEEN THERE IN THE PAST. CM CALLED TOYA GARRIDO, , SPOKE TO ASHU WHO WILL EVALUATE PT FOR ADMISSION. CM FAXED REFERRAL TO TOYA GARRIDO AT [phone]. CM [facility] FOR OUTSIDE INSTALLER APPRENTICE ACUTE CARE HOSPITAL SERVICES. Tommy Huang, CASE MANAGEMENT DCP- Discharge Planning Updated by [id number]: Tommy Huang on 03/09/18 4:[address] Patient Name: CATERINA STEWART Encounter No: [id number] : 1970 [place] [facility] [place] Anticipated DC Date: 03-09-2018 Planned Disposition: Nursing Facility [facility] Cert External Planned Provider: Nursing Facility [facility] Cert External Planned Provider: [facility][1] NURSING AND REHAB [facility] TERM CARE MEDICAID BED DCP follow-up note: CM RECEIVED DISCHARGE ORDER, SPOKE TO PT IN ROOM WHO REPORTS WANTING TO GO HOME [facility] WANT[facility] HOSPICE SERVICES RESTARTED WITH [facility]. PT REPORTS HOSPICE NEEDS TO BRING HER BED BACK TO [facility][1]. IMPORTANT MESSAGE FROM MEDICARE PROVIDED AND EXPLAINED. CM FAXED DISCHARGE INFORMATION TO [facility][1] VIA [facility] AT [phone]. CM NOTIFIED [facility] OF DISCHARGE AT [phone]. CM NOTIFIED [facility] OF [facility] AT [phone] WHO INFORMED CM THAT PT HAD REVOKED HOSPICE AND WILL NEED NEW ORDER FOR EVALUATION AND ADMIT TO HOSPICE. CM RECEIVED CALL FROM [facility] WHO INFORMED CM THAT HOSPICE HAD PT'S MATTRESS PICKED UP. CM NOTIFIED [facility] THAT PT WILL NEED HER MATTRESS BACK AT FACILITY. CM FAXED DISCHARGE INFORMATION TO [facility] AT [phone]. CM RECEIVED CALL FROM G[facility]NESIS OF [facility] WHO SPOKE TO [facility] OF [facility][1], [facility][1] DOES NOT FEEL COMFORTABLE ADMITTING PT ON 15 LITERS OXYGEN. [facility] WILL SPEAK TO HOSPICE NURSE REGARDING POSSIBLE INPATIENT HOSPICE EVALUATION. BEDSIDE NURSE NOTIFIED. [facility][1] WILL NOT ACCEPT PT BACK ON 15 LITERS OXYGEN. CM RECEIVED CALL FROM [facility]NESIS OF [facility] WHO INFORMED CM THAT PT IS NOT LIKELY GOING TO QUALIFY FOR INPATIENT HOSPICE FOR ONLY THE OXYGEN NEED. PT WILL NEED TO BE WEANED FROM HIGH OXYGEN NEED IF POSSIBLE. G[facility]NESIS OF [facility] WILL FOLLOW UP TOMORROW TO CHECK ON PT'S STATUS IN HOSPITAL. TAMIKO LICONA DCP- Discharge Planning Updated by [id number]: Tommy Huang on 03/07/18 9:[address] Patient Name: CATERINA STEWART Encounter No: [id number] : 1970 [place] [facility] [place] Anticipated DC Date: Planned Disposition: Nursing Facility [facility] Cert External Planned Provider: [facility], LONG TERM CARE MEDICAID BED DCP follow-up note: CM FAXED UPDATE TO [facility][1] VIA [employer] AT [phone].. FOR DISCHARGE, NOTIFY [facility] AT [phone], FAX DISCHARGE INFORMATION TO [facility] AT [phone]. [facility] TO ADMIT PT AT THE [facility], FAX DISCHARGE INFORMATION TO [facility][1] AT [phone]; NURSE REPORT TO BE CALLED TO [facility][1] AT [phone]. PT WILL TRANSPORT VIA AMBULANCE. TAMIKO Licona. DCP- Discharge Planning Updated by [id number]: Tommy Huang on 03/05/18 3:[address] Patient Name: CATERINA STEWART Encounter No: [id number] : 1970 Primary Insurance: [employer] MEDICARE HMO or PPO Anticipated DC Date: Planned Disposition: Nursing Facility [facility] Cert External Planned Provider: [facility], LONG TERM CARE MEDICAID BED DCP follow-up note: CM FAXED UPDATE TO [facility][1] VIA [employer] AT [phone].. FOR DISCHARGE, NOTIFY [facility] AT [phone], FAX DISCHARGE INFORMATION TO [facility] AT [phone]. [facility] TO ADMIT PT AT THE [facility]. FOR DISCHARGE TO THE [facility] REH[facility], FAX DISCHARGE INFORMATION TO [facility][1] AT [phone]; NURSE REPORT TO BE CALLED TO [facility][1] AT [phone]. PT WILL TRANSPORT VIA AMBULANCE. TAMIKO Licona. DCP- Discharge Planning Updated by [id number]: Tommy Huang on 03/01/18 8:[address] Patient Name: CATERINA STEWART Encounter No: [id number] : 1970 [place] [facility] [place] Anticipated DC Date: Planned Disposition: Nursing Facility [facility] Cert External Planned Provider: [facility][1] NURSING AND REHAB, [facility] MEDICAID BED DCP follow-up note: CM REVIEWED CHART, NOTES INDICATE PT IS FROM [facility]1] WITH [facility] WITH PLANS TO TURN TO [facility][1] WITH HOSPICE SERVICES. CM FAXED UPDATE TO [facility][1] VIA [employer] AT [phone]. CM FAXED UPDATE TO [facility] AT [phone]. FOR DISCHARGE, NOTIFY [facility] AT [phone], FAX DISCHARGE INFORMATION TO [facility] AT [phone]. [facility] TO ADMIT PT AT [facility][1] FOR HOSPICE. FOR DISCHARGE TO THE [facility] REHAB, FAX DISCHARGE INFORMATION TO [facility][1] AT [phone]; NURSE REPORT TO BE CALLED TO [facility][1] AT [phone]. PT WILL TRANSPORT VIA AMBULANCE. TAMIKO Licona DCP- Discharge Planning Updated by [id number]: Kathia Wright on 02/09/18 1:[address] Patient Name: CATERINA STEWART Admission Status: ER Accout number: [id number] Admission Date: 02-08-2018 : 1970 Admission Diagnosis: Attending: PERCY DONOVAN Current LOS: 1 Anticipated DC Date: Planned Disposition: Hospice Medical Facility [place] [facility] [place] Discharge Planning Comments: CM MET WITH PATIENT ABOUT DC PLANNING/NEEDS. STATES SHE IS CURRENTLY AT [facility] ON HOSPICE. CM WILL CALL AND VERIFY INFORMATION. PATIENT IS HERE FOR PNEUMONIA. PATIENT STATES NO NEEDS AT TIME OF DC AND THAT HER PLAN IS TO GO BACK TO [facility] BY AMBULANCE. CM WILL FOLLOW AND ASSIST NEEDED WITH DC PLANNING/NEEDS. Parts Department Manager: Kathia Wright Appended by Kathia Wright on 02/09/2018 14:26 AFTERSCHOOL: SPOKE WITH GÉNESIS AT [facility] AT [facility][1] AND HE STATED THEY WILL PICK HER BACK UP WHEN DISCHARGED. CM OR NURSE TO LET THEM KNOW WHEN PATIENT IS DC'D. CALL GÉNESIS AT [phone] WHEN PATIENT IS BEING DC'D FROM HOSPITAL. DCPIA - Discharge Planning Initial Assessment Updated by [email or web address]: Kathia Wright on 02/09/18 11:19 am * Is the patient Alert and Oriented? Yes * PCP [facility] * Pharmacy THROUGH [facility]1] * Preadmission Environment Hospice * Facility Name [facility] * ADLs Total Dependent * Equipment Hospital Bed Oxygen Trach Care Supplies Wheelchair * List name and contact numbers for known caregivers / representatives who currently or will assist patient after discharge: IBAN QUIROZ, * Community resources currently utilized Other * Please name any agencies selected above. [facility] * Additional services required to return to the preadmission environment? No * Can the patient safely return to the preadmission environment? Yes * Has this patient been hospitalized within the prior 30 days at any hospital? No Coverage Notice Reviewer: HAMZAH Huang Notice Issued Date-Time: 03/09/2018 16:45 Notice Type: IM Discharge Notice Notice Delivered To: Patient Relationship to Patient: Blade Balancer Name: Delivery Method: HAND - Hand Delivered Quin Days: Prior Verbal Notification: Recipient Understood Notice: Yes Recipient Signature: Yes Med Rec Note Co-signed by Attending: Coverage Notice Comment: Reviewer: HAMZAH Huang Notice Issued Date-Time: 03/14/2018 10:30 Notice Type: IM Discharge Notice Notice Delivered To: Patient Relationship to Patient: Blade Balancer Name: Delivery Method: HAND - Hand Delivered Quin Days: Prior Verbal Notification: Recipient Understood Notice: Yes Recipient Signature: Med Rec Note Co-signed by Attending: Coverage Notice Comment: Last DP export: 03/14/18 9:32 am Patient Name: CATERINA STEWART Page [id number] at 1047 All edits/amendments must be made on the electronic document DICTATION DATE: 03/14/186 GUEST HOUSE MANAGER: KOBE 03/14/18 1046 RPT#: [id number] DC DATE: STATUS: ADM IN [facility] [address] [place] [address] END OF REPORT
--- NOTE | 2018-03-14 11:45 | MORECARE ---
CASE MANAGEMENT DISCHARGE SUMMARY PATIENT: CATERINA STEWART UNIT: [id number] ADM DATE: 02/08/18 AGE: 47 : 66 SEX: F ROOM/BED: D.4269 AUTHOR: RACHELLEDOC PHYSICIAN: REFERRING PHYSICIAN: PERCY DONOVAN MD DATE OF SERVICE: 03/14/18 Discharge Plan Patient Name: CATERINA STEWART Facility: [facility]:[place] : 1970 Planned Disposition: Neuro Intensivist Physician Acute Care Facility Anticipated Discharge Date: 03/14/18 Discharge Date: Expected LOS: 34 Initial Reviewer: [id number] Initial Review Date: 02/09/2018 Generated: 03/14/18 12:44 pm Comments DCP- Discharge Planning Updated by [id number]: Josue Melton on 03/14/18 10:[address] Patient Name: CATERINA STEWART Encounter No: [id number] : 1970 [place] [facility] [place] Anticipated DC Date: 03-14-2018 Planned Disposition: Senior Living Acute Care Facility External Planned Provider: MARIA LUISA WRIGHT DCP follow-up note: CM RECEIVED CALL FROM [facility], . PT HAS BEEN ACCEPTED FOR LOGISTICS OPERATIONS DIRECTOR ACUTE CARE AT [facility] BY DR. IWONA JAFFE. PT NOTIFIED AND IN AGREEMENT WITH DISCHARGE TO LTACH TODAY. IMPORTANT MESSAGE FROM MEDICARE PROVIDED AND EXPLAINED. MARGO YOUNG NOTIFIED AND WILL DISCHARGE TODAY. BEDSIDE NURSE AND PEA VINER MECHANIC NURSE NOTIFIED. FOR DISCHARGE, FAX DISCHARGE INFORMATION TO [facility] AT [phone]. [facility] TO CALL CM WITH ROOM NUMBER. TOYA LUND TO CALL BEDSIDE NURSE AT [place] FOR NURSE REPORT. PT TO TRANSPORT VIA AMBULANCE. Josue Melton CASE MANAGEMENT Appended by Josue Melton on 03/14/2018 11:41 ASSEMBLER MOVEMENT: CM [facility] AT [phone]. [facility] TO CALL CM WITH ROOM NUMBER. SHAZIA HEMA TO CALL BEDSIDE NURSE AT [place] FOR NURSE REPORT. PT TO TRANSPORT VIA AMBULANCE. Josue [place], CASE MANAGEMENT DCP- Discharge Planning Updated by [id number]: Josue Melton on 03/13/18 9:[address] Patient Name: CATERINA STEWART Encounter No: [id number] : 1970 [place] [facility] [place] Anticipated DC Date: 03-14-2018 Planned Disposition: Senior Living Acute Care Facility External [facility] follow-up note: CM RECEIVED ORDER FOR LTACH EVALUATION. CM SPOKE TO PT IN ROOM, PT IS WILLING FOR LTACH EVALUATION AND PLACEMENT IN [place] AT [facility] SHE HAS BEEN THERE IN THE PAST. CM CALLED TOYA LUND, , SPOKE TO ASHU WHO WILL EVALUATE PT FOR ADMISSION. CM FAXED REFERRAL TO [facility]YA LUND AT [phone]. CM WAITING ADMISSION [facility] FOR LOGISTICS OPERATIONS DIRECTOR ACUTE [facility]. Josue Melton CASE ANDREW DCP- Discharge Planning Updated by [id number]: Josue Melton on 03/09/18 4:[address] Patient Name: CATERINA STEWART Encounter No: [id number] : 1970 [place] [facility] [place] Anticipated DC Date: 03-09-2018 Planned Disposition: Nursing Facility [facility] Cert External Planned Provider: Nursing Facility [facility] Cert External Planned Provider: [facility] RETIREMENT CARE MEDICAID BED DCP follow-up note: CM RECEIVED DISCHARGE ORDER, SPOKE TO PT IN ROOM WHO REPORTS WANTING TO GO HOME TO THE [facility] AND WANTS HOSPICE SERVICES RESTARTED WITH [facility]. PT REPORTS HOSPICE NEEDS TO BRING HER BED BACK TO [facility]. IMPORTANT MESSAGE FROM MEDICARE PROVIDED AND EXPLAINED. CM FAXED DISCHARGE INFORMATION TO [facility] VIA [employer] AT [phone]. CM NOTIFIED [facility] OF DISCHARGE AT [phone]. CM NOTIFIED [facility] AT [phone] WHO INFORMED CM THAT PT HAD REVOKED HOSPICE AND WILL NEED NEW ORDER FOR EVALUATION AND ADMIT TO HOSPICE. CM RECEIVED CALL FROM [facility] WHO INFORMED CM THAT HOSPICE HAD PT'S MATTRESS PICKED UP. CM NOTIFIED [facility] THAT PT WILL NEED HER MATTRESS BACK AT FACILITY. CM FAXED DISCHARGE INFORMATION TO [facility] AT [phone]. CM RECEIVED CALL FROM G[facility]NESIS OF [facility] WHO SPOKE TO ISACC OF [facility], [facility] DOES NOT FEEL COMFORTABLE ADMITTING PT ON 15 LITERS OXYGEN. GÉNESIS WILL SPEAK TO HOSPICE NURSE REGARDING POSSIBLE INPATIENT HOSPICE EVALUATION. BEDSIDE NURSE NOTIFIED. [facility] WILL NOT ACCEPT PT BACK ON 15 LITERS OXYGEN. CM RECEIVED CALL FROM [facility]NESIS OF [facility] WHO INFORMED CM THAT PT IS NOT LIKELY GOING TO QUALIFY FOR INPATIENT HOSPICE FOR ONLY THE OXYGEN NEED. PT WILL NEED TO BE WEANED FROM HIGH OXYGEN NEED IF POSSIBLE. [facility]NESIS OF [facility] WILL FOLLOW UP TOMORROW TO CHECK ON PT'S STATUS IN HOSPITAL. JOSUE MELTON CASE MANAGEMENT DCP- Discharge Planning Updated by [id number]: Josue Melton on 03/07/18 9:[address] Patient Name: CATERINA STEWART Encounter No: [id number] : 1970 Primary Insurance: [facility] [place] or [place]PO Anticipated DC Date: Planned Disposition: Nursing Facility [facility] Cert External Planned Provider: [facility], LONG TERM CARE MEDICAID BED DCP follow-up note: CM FAXED UPDATE TO [facility] VIA [employer] AT [phone].. FOR DISCHARGE, NOTIFY [facility] AT [phone], FAX DISCHARGE INFORMATION TO [facility] AT [phone]. [facility] TO ADMIT PT AT [facility] FOR HOSPICE. FOR DISCHARGE TO [facility] RE[facility], FAX DISCHARGE INFORMATION TO [facility] AT [phone]; NURSE REPORT TO BE CALLED TO [facility] AT [phone]. PT WILL TRANSPORT VIA AMBULANCE. TAMIKO Patterson. DCP- Discharge Planning Updated by [id number]: Josue Melton on 03/05/18 3:[address] Patient Name: CATERINA STEWART Encounter No: [id number] : 1970 Primary Insurance: [facility] [place] or [place]PO Anticipated DC Date: Planned Disposition: Nursing Facility [facility] Cert External Planned Provider: [facility], LONG TERM CARE MEDICAID BED DCP follow-up note: CM FAXED UPDATE TO [facility] VIA [employer] AT [phone].. FOR DISCHARGE, NOTIFY [facility] AT [phone], FAX DISCHARGE INFORMATION TO [facility] AT [phone]. [facility] TO ADMIT PT AT THE [facility]. FOR DISCHARGE TO [facility] NURSING [facility] RE[facility], FAX DISCHARGE INFORMATION TO [facility] AT [phone]; NURSE REPORT TO BE CALLED TO [facility] AT [phone]. PT WILL TRANSPORT VIA AMBULANCE. TAMIKO Patterson. DCP- Discharge Planning Updated by [id number]: Josue Melton on 03/01/18 8:[address] Patient Name: CATERINA STEWART Encounter No: [id number] : 1970 Primary Insurance: [facility] [place] or [place]PO Anticipated DC Date: Planned Disposition: Nursing Facility [facility] External Planned Provider: [facility] NURSING AND RE[facility], RETIREMENT CARE MEDICAID BED DCP follow-up note: CM REVIEWED CHART, NOTES INDICATE PT IS FROM [facility] WITH [facility] WITH PLANS TO TURN TO [facility] WITH HOSPICE SERVICES. CM FAXED UPDATE TO [facility] VIA [employer] AT [phone]. CM FAXED UPDATE TO [facility] AT [phone]. FOR DISCHARGE, NOTIFY [facility] AT [phone], FAX DISCHARGE INFORMATION TO [facility] AT [phone]. [facility] TO ADMIT PT AT THE [facility] FOR DISCHARGE TO [facility] NURSING AND REHAB, FAX DISCHARGE INFORMATION TO [facility] AT [phone]; NURSE REPORT TO BE CALLED TO [facility] AT [phone]. PT WILL TRANSPORT VIA AMBULANCE. TAMIKO Patterson DCP- Discharge Planning Updated by [id number]: Kathia Wright on 02/09/18 1:[address] Patient Name: CATERINA STEWART Admission Status: ER Accout number: [id number] Admission Date: 02-08-2018 : 1970 Admission Diagnosis: Attending: PERCY DONOVAN Current LOS: 1 Anticipated DC Date: Planned Disposition: Hospice Medical Facility Primary Insurance: [facility] [place] or [place]PO Discharge Planning Comments: CM MET WITH PATIENT ABOUT DC PLANNING/NEEDS. STATES SHE IS CURRENTLY AT [facility] ON HOSPICE. CM WILL CALL AND VERIFY INFORMATION. PATIENT IS HERE FOR PNEUMONIA. PATIENT STATES NO NEEDS AT TIME OF DC AND THAT HER PLAN IS TO GO BACK TO [facility] BY AMBULANCE. CM WILL FOLLOW AND ASSIST NEEDED WITH DC PLANNING/NEEDS. Camera Control Operator: Kathia Adriana Appended by Kathia Wright on 02/09/2018 14:26 ASSEMBLER MOVEMENT: SPOKE WITH GÉNESIS AT [facility] AT [facility] AND HE STATED THEY WILL PICK HER BACK UP WHEN DISCHARGED. CM OR NURSE TO LET THEM KNOW WHEN PATIENT IS DC'D. CALL GÉNESIS AT [phone] WHEN PATIENT IS BEING DC'D FROM HOSPITAL. DCPIA - Discharge Planning Initial Assessment Updated by [id number]: Kathia Wright on 02/09/18 11:19 am * Is the patient Alert and Oriented? Yes * PCP BHKENNY * Pharmacy THROUGH [facility] * Preadmission Environment Hospice * Facility Name [facility] * ADLs Total Dependent * Equipment Hospital Bed Oxygen Trach Care Supplies Wheelchair * List name and contact numbers for known caregivers / representatives who currently or will assist patient after discharge: IBAN QUIROZ, * Community resources currently utilized Other * Please name any agencies selected above. [facility] * Additional services required to return to the preadmission environment? No * Can the patient safely return to the preadmission environment? Yes * Has this patient been hospitalized within the prior 30 days at any hospital? No External Providers External Provider: Gricel [facility] Next Contact Date: 03/13/2018 Service Request Date: Service Type: Resolution: Reviewer: Comments: Coverage Notice Reviewer: [id number] Paulino Melton Notice Issued Date-Time: 03/09/2018 16:45 Notice Type: IM Discharge Notice Notice Delivered To: Patient Relationship to Patient: Motor Electrician Name: Delivery Method: HAND - Hand Delivered Quin Days: Prior Verbal Notification: Recipient Understood Notice: Yes Recipient Signature: Yes Med Rec Note Co-signed by Attending: Coverage Notice Comment: Reviewer: [id number] Paulino Melton Notice Issued Date-Time: 03/14/2018 10:30 Notice Type: IM Discharge Notice Notice Delivered To: Patient Relationship to Patient: Motor Electrician Name: Delivery Method: HAND - Hand Delivered Quin Days: Prior Verbal Notification: Recipient Understood Notice: Yes Recipient Signature: Med Rec Note Co-signed by Attending: Coverage Notice Comment: Last DP export: 03/14/18 9:47 am Patient Name: CATERINA STEWART Page [id number] at 1145 All edits/amendments must be made on the electronic document DICTATION DATE: 03/14/18 114 CLINICAL PROGRAM MANAGER: KOBE 03/14/18 1144 RPT#: [id number] DC DATE: STATUS: ADM IN [facility] [address] [place] [address] END OF REPORT
--- NOTE | 2018-03-14 11:52 | MORECARE ---
CASE MANAGEMENT DISCHARGE SUMMARY PATIENT: CATERINA STEWART UNIT: [id number] ADM DATE: 02/08/18 AGE: 47 : 66 SEX: F ROOM/BED: D.6822 AUTHOR: RACHELLEDOC PHYSICIAN: REFERRING PHYSICIAN: PERCY DONOVAN MD DATE OF SERVICE: 03/14/18 Discharge Plan Patient Name: CATERINA STEWART Facility: [facility]:[place] : 1970 Planned Disposition: Pocket Grinder Operator Acute Care Facility Anticipated Discharge Date: 03/14/18 Discharge Date: Expected LOS: 34 Initial Reviewer: [id number] Initial Review Date: 02/09/2018 Generated: 03/14/18 12:52 pm Comments DCP- Discharge Planning Updated by [id number]: Josue Melton on 03/14/18 10:[address] Patient Name: CATERINA STEWART Encounter No: [id number] : 1970 Primary Insurance: [facility] MEDICARE HMO or PPO Anticipated DC Date: 03-14-2018 Planned Disposition: Longterm Acute Care Facility External Planned Provider: MARIA LUISA WRIGHT DCP follow-up note: CM RECEIVED CALL FROM [facility], . PT HAS BEEN ACCEPTED FOR USER INTERFACE ARTIST ACUTE CARE AT [facility] BY DR. IWONA JAFFE. PT NOTIFIED AND IN AGREEMENT WITH DISCHARGE TO LTACH TODAY. IMPORTANT MESSAGE FROM MEDICARE PROVIDED AND EXPLAINED. MARGO YOUNG NOTIFIED AND WILL DISCHARGE TODAY. BEDSIDE NURSE AND COILED COIL INSPECTOR NURSE NOTIFIED. FOR DISCHARGE, FAX DISCHARGE INFORMATION TO [facility] AT [phone]. [facility] TO CALL CM WITH ROOM NUMBER. TOYA GARRIDO TO CALL BEDSIDE NURSE AT [place] FOR NURSE REPORT. PT TO TRANSPORT VIA AMBULANCE. Josue Melton CASE MANAGEMENT Appended by Josue Melton on 03/14/2018 11:41 SKEIN SPOOLER: CM [facility] AT [phone]. [facility] TO CALL CM WITH ROOM NUMBER. SHAZIA HEMA TO CALL BEDSIDE NURSE AT [place] FOR NURSE REPORT. PT TO TRANSPORT VIA AMBULANCE. Josue Winthrop, CASE MANAGEMENT DCP- Discharge Planning Updated by [id number]: Josue Melton on 03/13/18 9:[address] Patient Name: CATERINA STEWART Encounter No: [id number] : 1970 Primary Insurance: [facility] MEDICARE HMO or PPO Anticipated DC Date: 03-14-2018 Planned Disposition: Longterm Acute Care Facility External [facility] follow-up note: CM RECEIVED ORDER FOR LTACH EVALUATION. CM SPOKE TO PT IN ROOM, PT IS WILLING FOR LTACH EVALUATION AND PLACEMENT IN [place] AT [facility] SHE HAS BEEN THERE IN THE PAST. CM CALLED TOYA GARRIDO, , SPOKE TO ASHU WHO WILL EVALUATE PT FOR ADMISSION. CM FAXED REFERRAL TO [facility] AT [phone]. CM WAIT[facility] FOR USER INTERFACE ARTIST ACUTE [facility] HOSPITAL SERVICES. Josue Melton CASE ANDREW DCP- Discharge Planning Updated by [id number]: Josue Melton on 03/09/18 4:[address] Patient Name: CATERINA STEWART Encounter No: [id number] : 1970 Primary Insurance: [facility] MEDICARE HMO or PPO Anticipated DC Date: 03-09-2018 Planned Disposition: Nursing Facility [facility] Cert External Planned Provider: Nursing Facility [facility] Cert External Planned Provider: [facility] INTERMEDI[facility] MEDICAID BED DCP follow-up note: CM RECEIVED DISCHARGE ORDER, SPOKE TO PT IN ROOM WHO REPORTS WANTING TO GO HOME TO THE [facility] AND WANTS HOSPICE SERVICES RESTARTED WITH [facility]. PT REPORTS HOSPICE NEEDS TO BRING HER BED BACK TO [facility]. IMPORTANT MESSAGE FROM MEDICARE PROVIDED AND EXPLAINED. CM FAXED DISCHARGE INFORMATION TO [facility] VIA [facility] AT [phone]. CM NOTIFIED [facility] OF DISCHARGE AT [phone]. CM NOTIFIED [facility] AT [phone] WHO INFORMED CM THAT PT HAD REVOKED HOSPICE AND WILL NEED NEW ORDER FOR EVALUATION AND ADMIT TO HOSPICE. CM RECEIVED CALL FROM [facility] WHO INFORMED CM THAT HOSPICE HAD PT'S MATTRESS PICKED UP. CM NOTIFIED [facility]OS[facility]ICE THAT PT WILL NEED HER MATTRESS BACK AT FACILITY. CM FAXED DISCHARGE INFORMATION TO [facility] AT [phone]. CM RECEIVED CALL FROM GÉNESIS OF [facility] WHO SPOKE TO ISACC OF [facility], [facility] DOES NOT FEEL COMFORTABLE ADMITTING PT ON 15 LITERS OXYGEN. G[facility]NESIS WILL SPEAK TO HOSPICE NURSE REGARDING POSSIBLE INPATIENT HOSPICE EVALUATION. BEDSIDE NURSE NOTIFIED. [facility] WILL NOT ACCEPT PT BACK ON 15 LITERS OXYGEN. CM RECEIVED CALL FROM G[facility]NESIS OF [facility] WHO INFORMED CM THAT PT IS NOT LIKELY GOING TO QUALIFY FOR INPATIENT HOSPICE FOR ONLY THE OXYGEN NEED. PT WILL NEED TO BE WEANED FROM HIGH OXYGEN NEED IF POSSIBLE. GÉNESIS OF [facility] WILL FOLLOW UP TOMORROW TO CHECK ON PT'S STATUS IN HOSPITAL. JOSUE MELTON CASE MANAGEMENT DCP- Discharge Planning Updated by [id number]: Josue Melton on 03/07/18 9:[address] Patient Name: CATERINA STEWART Encounter No: [id number] : 1970 Primary Insurance: [facility] MEDICARE HMO or PPO Anticipated DC Date: Planned Disposition: Nursing Facility [facility] Cert External Planned Provider: [facility] LONG TERM CARE MEDICAID BED DCP follow-up note: CM FAXED UPDATE TO [facility] VIA [employer] AT [phone].. FOR DISCHARGE, NOTIFY [facility] AT [phone], FAX DISCHARGE INFORMATION TO [facility] AT [phone]. [facility] TO ADMIT PT AT [facility] FOR HOSPICE. FOR DISCHARGE TO [facility], FAX DISCHARGE INFORMATION TO [facility] AT [phone]; NURSE REPORT TO BE CALLED TO [facility] AT [phone]. PT WILL TRANSPORT VIA AMBULANCE. TAMIKO Patterson. DCP- Discharge Planning Updated by [id number]: Josue Melton on 03/05/18 3:[address] Patient Name: CATERINA STEWART Encounter No: [id number] : 1970 Primary Insurance: [facility] MEDICARE HMO or PPO Anticipated DC Date: Planned Disposition: Nursing Facility [facility] Cert External Planned Provider: [facility] LONG TERM CARE MEDICAID BED DCP follow-up note: CM FAXED UPDATE TO [facility] VIA [employer] AT [phone].. FOR DISCHARGE, NOTIFY [facility] AT [phone], FAX DISCHARGE INFORMATION TO [facility] AT [phone]. [facility] TO ADMIT PT AT [facility]. FOR DISCHARGE TO [facility], FAX DISCHARGE INFORMATION TO [facility] AT [phone]; NURSE REPORT TO BE CALLED TO [facility] AT [phone]. PT WILL TRANSPORT VIA AMBULANCE. TAMIKO Patterson. DCP- Discharge Planning Updated by [email or web address]: Josue Melton on 03/01/18 8:[address] Patient Name: CATERINA STEWART Encounter No: [id number] : 1970 Primary Insurance: [facility] MEDICARE HMO or PPO Anticipated DC Date: Planned Disposition: Nursing Facility [facility] External Planned Provider: [facility] INTERMEDIATE CARE MEDICAID BED DCP follow-up note: CM REVIEWED CHART, NOTES INDICATE PT IS FROM [facility] WITH [facility] WITH PLANS TO TURN TO THE [facility] WITH HOSPICE SERVICES. CM FAXED UPDATE TO [facility] VIA [employer] AT [phone]. CM FAXED UPDATE TO [facility] AT [phone]. FOR DISCHARGE, NOTIFY [facility] AT [phone], FAX DISCHARGE INFORMATION TO [facility] AT [phone]. [facility] TO ADMIT PT AT [facility] FOR DISCHARGE TO [facility], FAX DISCHARGE INFORMATION TO [facility] AT [phone]; NURSE REPORT TO BE CALLED TO [facility] AT [phone]. PT WILL TRANSPORT VIA AMBULANCE. TAMIKO Patterson DCP- Discharge Planning Updated by [id number]: Kathia Wright on 02/09/18 1:[address] Patient Name: CATERINA STEWART Admission Status: ER Accout number: [id number] Admission Date: 02-08-2018 : 1970 Admission Diagnosis: Attending: PERCY DONOVAN Current LOS: 1 Anticipated DC Date: Planned Disposition: Hospice Medical Facility Primary Insurance: [facility] MEDICARE HMO or PPO Discharge Planning Comments: CM MET WITH PATIENT ABOUT DC PLANNING/NEEDS. STATES SHE IS CURRENTLY AT [facility] ON HOSPICE. CM WILL CALL AND VERIFY INFORMATION. PATIENT IS HERE FOR PNEUMONIA. PATIENT STATES NO NEEDS AT TIME OF DC AND THAT HER PLAN IS TO GO BACK TO [facility] BY AMBULANCE. CM WILL FOLLOW AND ASSIST NEEDED WITH DC PLANNING/NEEDS. Tax Assessor: Kathia Adriana Appended by Kathia Wright on 02/09/2018 14:26 SKEIN SPOOLER: SPOKE WITH GÉNESIS AT [facility] AT [facility] AND HE STATED THEY WILL PICK HER BACK UP WHEN DISCHARGED. CM OR NURSE TO LET THEM KNOW WHEN PATIENT IS DC'D. CALL [facility] AT [phone] WHEN PATIENT IS BEING DC'D FROM HOSPITAL. DCPIA - Discharge Planning Initial Assessment Updated by [id number]: Kathia Wright on 02/09/18 11:19 am * Is the patient Alert and Oriented? Yes * PCP BHMARY JO * Pharmacy THROUGH [facility] * Preadmission Environment Hospice * Facility Name [facility] * ADLs Total Dependent * Equipment Hospital Bed Oxygen Trach Care Supplies Wheelchair * List name and contact numbers for known caregivers / representatives who currently or will assist patient after discharge: IBAN QUIROZ, * Community resources currently utilized Other * Please name any agencies selected above. [facility] * Additional services required to return to the preadmission environment? No * Can the patient safely return to the preadmission environment? Yes * Has this patient been hospitalized within the prior 30 days at any hospital? No Coverage Notice Reviewer: [id number] Melton Notice Issued Date-Time: 03/09/2018 16:45 Notice Type: IM Discharge Notice Notice Delivered To: Patient Relationship to Patient: Lawn Mower Operator Name: Delivery Method: HAND - Hand Delivered Quin Days: Prior Verbal Notification: Recipient Understood Notice: Yes Recipient Signature: Yes Med Rec Note Co-signed by Attending: Coverage Notice Comment: Reviewer: [id number] Melton Notice Issued Date-Time: 03/14/2018 10:30 Notice Type: IM Discharge Notice Notice Delivered To: Patient Relationship to Patient: Lawn Mower Operator Name: Delivery Method: HAND - Hand Delivered Quin Days: Prior Verbal Notification: Recipient Understood Notice: Yes Recipient Signature: Med Rec Note Co-signed by Attending: Coverage Notice Comment: Last DP export: 03/14/18 10:44 am Patient Name: CATERINA STEWART Page 25829 at 1152 All edits/amendments must be made on the electronic document DICTATION DATE: 03/14/18 115 GARMENT WORKER: KOBE 03/14/18 115 RPT#: [id number] DC DATE: STATUS: ADM IN [facility] [address] [place] [address] END OF REPORT
[2018-03-14 11:59] VITALS: BP 110/55
--- NOTE | 2018-03-14 12:15 | MORECARE ---
CASE MANAGEMENT DISCHARGE SUMMARY PATIENT: CATERINA STEWART UNIT: [id number] ADM DATE: 02/08/18 AGE: 47 : 66 SEX: F ROOM/BED: D.6196 AUTHOR: RACHELLE,DOC PHYSICIAN: REFERRING PHYSICIAN: PERCY DONOVAN MD DATE OF SERVICE: 03/14/18 Discharge Plan Patient Name: CATERINA STEWART Facility: [facility]:[place] : 1970 Planned Disposition: Veterinary Surgery Technologist Acute Care Facility Anticipated Discharge Date: 03/14/18 Discharge Date: Expected LOS: 34 Initial Reviewer: [id number] Initial Review Date: 02/09/2018 Generated: 03/14/18 1:15 pm Comments DCP- Discharge Planning Updated by [id number]: Josue Melton on 03/14/18 11:[address] Patient Name: CATERINA STEWART Encounter No: [id number] : 1970 [place] [facility] [place] Anticipated DC Date: 03-14-2018 Planned Disposition: Veterinary Surgery Technologist Acute Care Facility External Planned Provider: MARIA LUISA WRIGHT DCP follow-up note: CM RECEIVED CALL FROM [facility], . PT HAS BEEN ACCEPTED FOR SOFT CRAB SHEDDER ACUTE CARE AT [facility] BY DR. IWONA JAFFE. PT NOTIFIED AND IN AGREEMENT WITH DISCHARGE TO LTACH TODAY. IMPORTANT MESSAGE FROM MEDICARE PROVIDED AND EXPLAINED. MARGO YOUNG NOTIFIED AND WILL DISCHARGE TODAY. BEDSIDE NURSE AND RUBBER MOULDING MACHINE OPERATOR NURSE NOTIFIED. FOR DISCHARGE, FAX DISCHARGE INFORMATION TO [facility] AT [phone]. [facility] TO CALL CM WITH ROOM NUMBER. TOYA GARRIDO TO CALL BEDSIDE NURSE AT [place] FOR NURSE REPORT. PT TO TRANSPORT VIA AMBULANCE. Josue Melton, CASE MANAGEMENT Appended by Josue Melton on 03/14/2018 11:41 SALES TEACHER: CM FAXED DISCHARGE INFORMATION TO [facility] AT [phone]. [facility] TO CALL CM WITH ROOM NUMBER. SHAZIA HEMA TO CALL BEDSIDE NURSE AT [place] FOR NURSE REPORT. PT TO TRANSPORT VIA AMBULANCE. Josue Rathbun, CASE MANAGEMENT Appended by Josue Melton on 03/14/2018 12:09 SALES TEACHER: CM ADVISED BY ASHU OF [facility] THAT PT WAS [place] THE LAST TIME PT WAS AT [facility]. CM CALLED EUGENIE [facility], WAS ADVISED THAT PT'S WORKER IS KATHIA MORAN IN [facility]. CM ASKED PT WHO VERIFIED SHE IS IN [place]. CM CALLED KATHIA M[place], , LEFT DETAILED MESSAGE INFORMING OF PT'S DISCHARGE TODAY TO [facility] AND LEFT CM CONTACT INFORMATION. NO FURTHER DISCHARGE NEEDS IDENTIFIED. TAMIKO LICONA DCP- Discharge Planning Updated by [id number]: Josue Melton on 03/13/18 9:[address] Patient Name: CATERINA STEWART Encounter No: [id number] : 1970 [place] Insurance[place] [facility] [place] Anticipated DC Date: 03-14-2018 Planned Disposition: Veterinary Surgery Technologist Acute Care Facility External Planned Provider: TOYA GARRIDO [place] DCP follow-up note: CM RECEIVED ORDER FOR LTACH EVALUATION. CM SPOKE TO PT IN ROOM, PT IS WILLING FOR LTACH EVALUATION AND PLACEMENT IN [place] AT [facility] SHE HAS BEEN THERE IN THE PAST. CM CALLED [facility], , SPOKE TO ASHU WHO WILL EVALUATE PT FOR ADMISSION. [facility] [phone]. CM WAITING ADMISSION DETERMINATION FROM [facility] FOR SOFT CRAB SHEDDER ACUTE CARE HOSPITAL SERVICES. TAMIKO Licona DCP- Discharge Planning Updated by [id number]: Josue Melton on 03/09/18 4:[address] Patient Name: CATERINA STEWART Encounter No: [id number] : 1970 [place] [facility] [place] Anticipated DC Date: 03-09-2018 Planned Disposition: Nursing Facility [facility] Cert External Planned Provider: Nursing Facility [facility] Cert External Planned Provider: [facility] SOFT CRAB SHEDDER CARE MEDICAID BED DCP follow-up note: CM RECEIVED DISCHARGE ORDER, SPOKE TO PT IN ROOM WHO REPORTS WANTING TO GO HOME TO THE [facility] AND WANTS HOSPICE SERVICES RESTARTED WITH [facility]. PT REPORTS HOSPICE NEEDS TO BRING HER BED BACK TO [facility]. IMPORTANT MESSAGE FROM MEDICARE PROVIDED AND EXPLAINED. CM FAXED DISCHARGE INFORMATION TO [facility]IA [facility] AT [phone]. CM NOTIFIED [facility] OF DISCHARGE AT [phone]. CM NOTIFIED [facility] AT [phone] WHO INFORMED CM THAT PT HAD REVOKED HOSPICE AND WILL NEED NEW ORDER FOR EVALUATION AND ADMIT TO HOSPICE. CM RECEIVED CALL FROM [facility] WHO INFORMED CM THAT HOSPICE HAD PT'S MATTRESS PICKED UP. CM NOTIFIED [facility] THAT PT WILL NEED HER MATTRESS BACK AT FACILITY. CM FAXED DISCHARGE INFORMATION TO [facility] AT [phone]. CM RECEIVED CALL FROM G[facility]NESIS OF [facility] WHO SPOKE TO [facility] OF [facility], [facility] DO[facility] NOT FEEL COMFORTABLE ADMITTING PT ON 15 LITERS OXYGEN. GÉNESIS WILL SPEAK TO HOSPICE NURSE REGARDING POSSIBLE INPATIENT HOSPICE EVALUATION. BEDSIDE NURSE NOTIFIED. [facility] WILL NOT ACCEPT PT BACK ON 15 LITERS OXYGEN. CM RECEIVED CALL FROM [facility]NESIS OF [facility] WHO INFORMED CM THAT PT IS NOT LIKELY GOING TO QUALIFY FOR INPATIENT HOSPICE FOR ONLY THE OXYGEN NEED. PT WILL NEED TO BE WEANED FROM HIGH OXYGEN NEED IF POSSIBLE. G[facility]NESIS OF [facility] WILL FOLLOW UP TOMORROW TO CHECK ON PT'S STATUS IN HOSPITAL. JOSUE MELTON, CASE MANAGEMENT DCP- Discharge Planning Updated by [id number]: Josue Melton on 03/07/18 9:[address] Patient Name: CATERINA STEWART Encounter No: [id number] : 1970 Primary Insurance[place] [facility] [place] Anticipated DC Date: Planned Disposition: Nursing Facility [facility] Cert External Planned Provider: [facility] MEDICAID BED DCP follow-up note: CM FAXED UPDATE TO [facility]IA [facility] AT [phone].. FOR DISCHARGE, NOTIFY [facility] AT [phone], FAX DISCHARGE INFORMATION TO [facility] AT [phone]. [facility] TO ADMIT PT AT [facility] FOR HOSPICE. FOR DISCHARGE TO [facility], FAX DISCHARGE INFORMATION TO [facility] AT [phone]; NURSE REPORT TO BE CALLED TO [facility] AT [phone]. PT WILL TRANSPORT VIA AMBULANCE. Josue Reina, CASE MANAGEMENT. DCP- Discharge Planning Updated by [id number]: Josue Melton on 03/05/18 3:[address] Patient Name: CATERINA STEWART Encounter No: [id number] : 1970 Primary Insurance: [facility] Anticipated DC Date: Planned Disposition: Nursing Facility [facility] Cert External Planned Provider: [facility], LONG TERM CARE MEDICAID BED DCP follow-up note: CM FAXED UPDATE TO [facility]IA [facility] AT [phone].. FOR DISCHARGE, NOTIFY [facility] AT [phone], FAX DISCHARGE INFORMATION TO [facility] AT [phone]. [facility] TO ADMIT PT AT [facility] FOR DISCHARGE TO [facility], FAX DISCHARGE INFORMATION TO [facility] AT [phone]; NURSE REPORT TO BE CALLED TO [facility] AT [phone]. PT WILL TRANSPORT VIA AMBULANCE. TAMIKO Licona. DCP- Discharge Planning Updated by [id number]: Josue Melton on 03/01/18 8:[address] Patient Name: CATERINA STEWART Encounter No: [id number] : 1970 Primary Insurance: [facility] Anticipated DC Date: Planned Disposition: Nursing Facility [facility] Cert External Planned Provider: [facility] LONG TERM CARE MEDICAID BED DCP follow-up note: CM REVIEWED CHART, NOTES INDICATE PT IS [facility] WITH [facility] WITH PLANS TO TURN TO [facility] WITH HOSPICE SERVICES. CM FAXED UPDATE TO [facility]IA [facility] AT [phone]. CM FAXED UPDATE TO [facility] AT [phone]. FOR DISCHARGE, NOTIFY [facility] AT [phone], FAX DISCHARGE INFORMATION TO [facility] AT [phone]. [facility] TO ADMIT PT AT [facility] FOR DISCHARGE TO [facility], FAX DISCHARGE INFORMATION TO [facility] AT [phone]; NURSE REPORT TO BE CALLED TO [facility] AT [phone]. PT WILL TRANSPORT VIA AMBULANCE. TAMIKO Licona DCP- Discharge Planning Updated by [id number]: Kathia Wright on 02/09/18 1:[address] Patient Name: CATERINA STEWART Admission Status: ER Accout number: [id number] Admission Date: 02-08-2018 : 1970 Admission Diagnosis: Attending: PERCY DONOVAN Current LOS: 1 Anticipated DC Date: Planned Disposition: Hospice Medical Facility Primary [place] [facility] Discharge Planning Comments: CM MET WITH PATIENT ABOUT DC PLANNING/NEEDS. STATES SHE IS CURRENTLY AT [facility]. CM WILL CALL AND VERIFY INFORMATION. PATIENT IS HERE FOR PNEUMONIA. PATIENT STATES NO NEEDS AT TIME OF DC AND THAT HER PLAN IS TO GO BACK [facility] BY AMBULANCE. CM WILL FOLLOW AND ASSIST NEEDED WITH DC PLANNING/NEEDS. Head Of Design: Kathia Wright Appended by Kathia Wright on 02/09/2018 14:26 SALES TEACHER: SPOKE WITH GÉNESIS AT [facility] AT [facility] AND HE STATED THEY WILL PICK HER BACK UP WHEN DISCHARGED. CM OR NURSE TO LET THEM KNOW WHEN PATIENT IS DC'D. CALL G[facility]NESIS AT [phone] WHEN PATIENT IS BEING DC'D FROM HOSPITAL. DCPIA - Discharge Planning Initial Assessment Updated by [id number]: Kathia Wright on 02/09/18 11:19 am * Is the patient Alert and Oriented? Yes * PCP [facility] * Pharmacy [facility] * Preadmission Environment Hospice * Facility Name [facility] * ADLs Total Dependent * Equipment Hospital Bed Oxygen Trach Care Supplies Wheelchair * List name and contact numbers for known caregivers / representatives who currently or will assist patient after discharge: RICHIE, DAUGHTER, * Community resources currently utilized Other * Please name any agencies selected above. [facility] * Additional services required to return to the preadmission environment? No * Can the patient safely return to the preadmission environment? Yes * Has this patient been hospitalized within the prior 30 days at any hospital? No Coverage Notice Reviewer: [id number] Melton Notice Issued Date-Time: 03/09/2018 16:45 Notice Type: IM Discharge Notice Notice Delivered To: Patient Relationship to Patient: Glassware Selector Name: Delivery Method: HAND - Hand Delivered Quin Days: Prior Verbal Notification: Recipient Understood Notice: Yes Recipient Signature: Yes Med Rec Note Co-signed by Attending: Coverage Notice Comment: Reviewer: HAMZAH Melton Notice Issued Date-Time: 03/14/2018 10:30 Notice Type: IM Discharge Notice Notice Delivered To: Patient Relationship to Patient: Glassware Selector Name: Delivery Method: HAND - Hand Delivered Quin Days: Prior Verbal Notification: Recipient Understood Notice: Yes Recipient Signature: Med Rec Note Co-signed by Attending: Coverage Notice Comment: Last DP export: 03/14/18 10:52 am Patient Name: CATERINA STEWART Page 30995 at 1215 All edits/amendments must be made on the electronic document DICTATION DATE: 03/14/18 1214 RETAIL AIDE: KOBE 03/14/18 1214 RPT#: [id number] DC DATE: STATUS: ADM IN [facility] [address] [place] [address] END OF REPORT
--- NOTE | 2018-03-14 15:04 | NUR ---
PT DISCHARGED TO [facility] ROOM 327 VIA EMS TRANSPORTATION. REPORT CALLED TO ASHU. CVL LEFT IN PLACE PER [facility] REQUEST. DOWNS IN PLACE. RESPIRATORY PLACED MASK ON PT @40%. PT NOT ABLE TO SIGN PAPERWORK. ALL VALUABLES REMOVED.
[2018-03-19 07:10] LABS: FUNGUS MYCOLOGY CULTURE Final report (())
[2018-03-26 07:10] LABS: FUNGUS MYCOLOGY CULTURE Final report (())
[2018-04-03 14:17] LABS: ACID FAST CULTURE Negative (()); ACID FAST SMEAR Negative (())
== END 2018-03-14 15:07 | disposition short-term general hospital (02) | DRG 207 ==
LOC: D.ER 01:52 → D.EDHOLD 04:50 → D.ICU 04:50 → D.M2 04:50 → D.MS 04:50 → D.ICU 02-11 11:40 → D.M2 02-28 11:19
PROVIDERS: Emergency Medicine; Family Medicine; Internal Medicine Pulmonary Disease; ADMIT Legal Medicine
PROC: 0BC98ZZ Extirpation of Matter from Lingula Bronchus, Via Natural or Artificial Opening Endoscopic (ICD-10-PCS; 2018-02-09)
PROC: 0BC48ZZ Extirpation of Matter from Right Upper Lobe Bronchus, Via Natural or Artificial Opening Endoscopic (ICD-10-PCS; 2018-02-09)
PROC: 0BC88ZZ Extirpation of Matter from Left Upper Lobe Bronchus, Via Natural or Artificial Opening Endoscopic (ICD-10-PCS; 2018-02-09)
PROC: 0BC58ZZ Extirpation of Matter from Right Middle Lobe Bronchus, Via Natural or Artificial Opening Endoscopic (ICD-10-PCS; 2018-02-09)
PROC: 0BC38ZZ Extirpation of Matter from Right Main Bronchus, Via Natural or Artificial Opening Endoscopic (ICD-10-PCS; 2018-02-09)
PROC: 0BC68ZZ Extirpation of Matter from Right Lower Lobe Bronchus, Via Natural or Artificial Opening Endoscopic (ICD-10-PCS; 2018-02-09)
PROC: 0BCB8ZZ Extirpation of Matter from Left Lower Lobe Bronchus, Via Natural or Artificial Opening Endoscopic (ICD-10-PCS; 2018-02-09)
PROC: 0BC78ZZ Extirpation of Matter from Left Main Bronchus, Via Natural or Artificial Opening Endoscopic (ICD-10-PCS; 2018-02-09)
PROC: 5A1955Z Respiratory Ventilation, Greater than 96 Consecutive Hours (ICD-10-PCS; principal; 2018-02-11)
PROC: 0BC78ZZ Extirpation of Matter from Left Main Bronchus, Via Natural or Artificial Opening Endoscopic (ICD-10-PCS; 2018-02-11)
PROC: 05HN33Z Insertion of Infusion Device into Left Internal Jugular Vein, Percutaneous Approach (ICD-10-PCS; 2018-02-12)
PROC: 0BJ08ZZ Inspection of Tracheobronchial Tree, Via Natural or Artificial Opening Endoscopic (ICD-10-PCS; 2018-02-17)
PROC: 0B928ZZ Drainage of Carina, Via Natural or Artificial Opening Endoscopic (ICD-10-PCS; 2018-02-24)
PROC: 0B948ZZ Drainage of Right Upper Lobe Bronchus, Via Natural or Artificial Opening Endoscopic (ICD-10-PCS; 2018-02-24)
PROC: 0B988ZZ Drainage of Left Upper Lobe Bronchus, Via Natural or Artificial Opening Endoscopic (ICD-10-PCS; 2018-02-24)
PROC: 0B918ZZ Drainage of Trachea, Via Natural or Artificial Opening Endoscopic (ICD-10-PCS; 2018-02-24)
PROC: 0B958ZZ Drainage of Right Middle Lobe Bronchus, Via Natural or Artificial Opening Endoscopic (ICD-10-PCS; 2018-02-24)
PROC: 0B938ZZ Drainage of Right Main Bronchus, Via Natural or Artificial Opening Endoscopic (ICD-10-PCS; 2018-02-24)
PROC: 0B978ZZ Drainage of Left Main Bronchus, Via Natural or Artificial Opening Endoscopic (ICD-10-PCS; 2018-02-24)
PROC: 0B968ZZ Drainage of Right Lower Lobe Bronchus, Via Natural or Artificial Opening Endoscopic (ICD-10-PCS; 2018-02-24)
PROC: 0B9B8ZZ Drainage of Left Lower Lobe Bronchus, Via Natural or Artificial Opening Endoscopic (ICD-10-PCS; 2018-02-24)
PROC: 0B998ZZ Drainage of Lingula Bronchus, Via Natural or Artificial Opening Endoscopic (ICD-10-PCS; 2018-02-24)
PROC: 0B928ZZ Drainage of Carina, Via Natural or Artificial Opening Endoscopic (ICD-10-PCS; 2018-02-25)
PROC: 0B948ZZ Drainage of Right Upper Lobe Bronchus, Via Natural or Artificial Opening Endoscopic (ICD-10-PCS; 2018-02-25)
PROC: 0B988ZZ Drainage of Left Upper Lobe Bronchus, Via Natural or Artificial Opening Endoscopic (ICD-10-PCS; 2018-02-25)
PROC: 0B958ZZ Drainage of Right Middle Lobe Bronchus, Via Natural or Artificial Opening Endoscopic (ICD-10-PCS; 2018-02-25)
PROC: 0B938ZZ Drainage of Right Main Bronchus, Via Natural or Artificial Opening Endoscopic (ICD-10-PCS; 2018-02-25)
PROC: 0B978ZZ Drainage of Left Main Bronchus, Via Natural or Artificial Opening Endoscopic (ICD-10-PCS; 2018-02-25)
PROC: 0B968ZZ Drainage of Right Lower Lobe Bronchus, Via Natural or Artificial Opening Endoscopic (ICD-10-PCS; 2018-02-25)
PROC: 0B9B8ZZ Drainage of Left Lower Lobe Bronchus, Via Natural or Artificial Opening Endoscopic (ICD-10-PCS; 2018-02-25)
PROC: 0B998ZZ Drainage of Lingula Bronchus, Via Natural or Artificial Opening Endoscopic (ICD-10-PCS; 2018-02-25)
DX: J15.212 Pneumonia due to Methicillin resistant Staphylococcus aureus (principal); R53.2 Functional quadriplegia; J96.21 Acute and chronic respiratory failure with hypoxia; J96.22 Acute and chronic respiratory failure with hypercapnia; J98.11 Atelectasis; T17.590A Other foreign object in bronchus causing asphyxiation, initial encounter; E87.0 Hyperosmolality and hypernatremia; J90 Pleural effusion, not elsewhere classified; J15.1 Pneumonia due to Pseudomonas; Z93.0 Tracheostomy status; L89.152 Pressure ulcer of sacral region, stage 2; D72.829 Elevated white blood cell count, unspecified; D64.9 Anemia, unspecified; E78.00 Pure hypercholesterolemia, unspecified; G89.29 Other chronic pain; F41.8 Other specified anxiety disorders; E87.6 Hypokalemia; J44.9 Chronic obstructive pulmonary disease, unspecified; E83.42 Hypomagnesemia; S91.201A Unspecified open wound of right great toe with damage to nail, initial encounter; K59.00 Constipation, unspecified